=== PATIENT | male | born 1950 | race Caucasian/White ===

== ENCOUNTER 2016-10-23 18:27 | Observation (INO) ==
[2016-10-23] MEDS ORDERED: Ondansetron 4 MG/2 ML VIAL IVP ONE (18:34)
[2016-10-23] MEDS ORDERED: *HR* HYDROmorphone (PF) 1 MG/ML SYRINGE IVP ONE (18:34)
--- NOTE | 2016-10-23 18:57 | Emergency Department Note ---
Disposition Clinical Impression: Calculus of kidney Disposition: Admitted As Inpatient Condition: Good Time of Disposition: 19:00 General Adult HPI - General Stated complaint: kidney stones Time Seen by Provider: 10/23/16 18:28 Source: patient Mode of arrival: ambulatory Limitations: no limitations Nursing Notes Reviewed: Yes Vital Signs Reviewed: Yes - History of Present Illness HPI Narrative: 66-year-old male with history of proximal left 4 mm ureterolithiasis that I diagnosed this morning. Presents today for intractable pain along with dry heaving at home despite taking his Percocet, Naprosyn, and Zofran. He states that he would like admitted for symptoms. He denies any new symptoms including fever, headache, confusion, chest pain or shortness of breath, inability to urinate or pain with urination. He denies any other abdominal pain other than left flank pain radiating to the left lower quadrant. No injuries. - Related Data Home Medications Medication Instructions Recorded Confirmed Albuterol Sulfate [Proair Hfa] 2 puff IH Q4H PRN 12/26/15 12/26/15 Atorvastatin Calcium 40 mg PO HS 12/26/15 12/26/15 Budesonide/Formoterol 160/4.5 2 puff IH BIDR 12/26/15 12/26/15 [Symbicort 160/4.5] Fenofibrate 160 mg PO DAILY 12/26/15 12/26/15 Roflumilast [Daliresp] 500 mcg PO DAILY 12/26/15 12/26/15 Tiotropium [place] [Spiriva] 18 mcg PO DAILY 12/26/15 12/26/15 Previous Rx's Medication Instructions Recorded Benzonatate [Tessalon] 200 mg PO TID PRN #30 capsule 12/28/15 levoFLOXacin [Levaquin] 500 mg PO DAILY #5 tablet 12/28/15 predniSONE [PredniSONE] 60 mg PO DAILY #18 tablet 12/28/15 Naproxen [Naprosyn] 500 mg PO BID PRN #20 tablet 10/23/16 Ondansetron ODT [Zofran ODT] 4 mg SL Q6HR PRN #10 tab.rapdis 10/23/16 OxyCODONE/APAP 5/325 [Percocet 1 each PO Q6HR PRN #6 tablet 10/23/16 5/325 MG] Allergies Allergy/AdvReac Type Severity Reaction Status Date / Time Penicillins Allergy Hives Verified 12/26/15 03:46 Sulfa (Sulfonamide Allergy Hives Verified 12/26/15 03:46 Antibiotics) All systems ED: reviewed and negative except as stated. Past Medical History - Past Medical History Attestation: Yes The following information was validated with the patient. Source: patient Medical history: Reports: COPD, hyperlipidemia, kidney stones Psychiatric history: Reports: no psych history - Social History Smoking Status: Former smoker Smokeless Tobacco Status: No Alcohol use: Reports: none Drug use: Reports: none Physical Exam - Head Head exam: atraumatic, normocephalic, normal inspection - Eye Eye exam: Present: normal appearance, PERRL, EOMI - ENT ENT exam: normal exam, normal oropharynx, mucous membranes moist - Neck Neck exam: Present: normal inspection, full ROM, trachea midline - Chest Chest inspection: Present: normal inspection, symmetric chest wall rise - Respiratory Respiratory exam: Clear to auscultation bilaterally without wheezes rales or rhonchi Cardiovascular Cardiovascular exam: Present: regular rate, normal rhythm, normal heart sounds - Abdominal Exam Abdomen is soft without tenderness, rigidity, or guarding. Positive bowel sounds and no masses noted. - Extremities Exam Extremities exam: Present: normal inspection, full ROM - Back Exam Back exam: Present: normal inspection, full ROM. Positive CVA tenderness on the left. - Neurological Exam Neurological exam: Present: alert, oriented X3, CN II-XII intact - Psychiatric Psychiatric exam: Present: normal affect, normal mood - Skin Skin exam: Present: warm, dry, intact, normal color - General General appearance: other (Uncomfortable) Course - Reevaluation(s) Reevaluation #1: 66-year-old male presents as a bounce back from this morning with uncontrolled pain despite Percocet, Naprosyn, and Zofran. Accepted to urology service by Dr. Tang for surgical management of his stone tomorrow. Patient is agreeable to plan. We are administering Dilaudid and Zofran at this time to control his symptoms. Time: 19:00 Attestation Statement - Attestation Attestation: I personally interviewed and examined this patient and my medical decision- making was reviewed with the ED Resident Physician, Dr. Odonnell. I agree with the documented findings, disposition and treatment plan as described except to the extent set forth below. I personally evaluated the patient earlier in this shift for left renal colic secondary to a 4 mm proximal ureter stone. Patient was discharged in improved condition with great pain control to follow-up with his family doctor and provided prescriptions for home. Upon returning home patient reports that he did take Naprosyn, Zofran, and a dose of Percocet but since that time has had intractable vomiting and pain. Patient's exam shows similar findings with left flank pain radiating around to the left groin area. Vital signs are stable. Will place an IV and administered pain and nausea medication and admit the patient for intractable pain and nausea vomiting. Discussed with urology who accepted patient for admission.
[2016-10-23] MEDS ORDERED: Ondansetron 4 MG/2 ML VIAL IVP PRN (19:51)
[2016-10-23] MEDS ORDERED: *HR* Morphine 2 MG/ML SYRINGE IVP PRN (19:51)
[2016-10-23] MEDS ORDERED: *HR* Promethazine 25 MG/ML VIAL IVP PRN (19:51)
[2016-10-23] MEDS ORDERED: Naloxone 0.4 MG/ML INJ IVP PRN (19:51)
[2016-10-23] MEDS ORDERED: *HR* HYDROmorphone (PF) 1 MG/ML SYRINGE IVP PRN (19:51)
[2016-10-23] MEDS ORDERED: Ketorolac 15 MG/ML VIAL IVP PRN (19:51)
[2016-10-23] MEDS ORDERED: Benzonatate 100 MG CAPSULE PO PRN (19:55)
[2016-10-23] MEDS: Budesonide/Formoterol 160/4.5 MDI IH SCH (20:20)
--- NOTE | 2016-10-23 20:24 | Urology History & Physical ---
Date of Encounter: 10/24/16 Time of Encounter: 20:22 Assessment and Plan (1) Ureteral stone with hydronephrosis Current Visit: Yes Status: Acute I reviewed the CT images and discussed findings with the and patient. pt is not comfortable with medically expulsive therapy bc of recent illness requiring 2 ER visits. we have elevated to proceed with ureteroscopic stone extraction with holmium laser lithotripsy and stent placement. we discussed risk of the procedure including injury to urinary tract and inability to retrieve the stone requiring a 2nd surgery. we discussed need for stent placement after surgery. History of Present Illness Chief complaint: flank pain HPI: Mr. Salinas is a 66 year old male with a hx of urolithiasis. 2 ER visits today for flank pain and intractable N/V. no fever. no surgery for stones in the past. 4 mm proximal stone. Past Med Surg Social Fam HX - Past Medical History Medical history: COPD, hyperlipidemia, hypertension, kidney stones Psychiatric history: no psych history - Social History Smoking Status: Former smoker Smokeless Tobacco Status: No Alcohol use: none Drug use: none - Family History Mother Living Status: Hx Family Endocrine Disorder: Yes (DM) Medications and Allergies Albuterol Sulfate [Proair Hfa] 2 puff IH Q4H PRN 12/26/15 [History] Atorvastatin Calcium 40 mg PO HS 12/26/15 [History] Budesonide/Formoterol 160/4.5 [Symbicort 160/4.5] 2 puff IH BIDR 12/26/15 [ History] Fenofibrate 160 mg PO DAILY 12/26/15 [History] Roflumilast [Daliresp] 500 mcg PO DAILY 12/26/15 [History] Tiotropium [place] [Spiriva] 18 mcg PO DAILY 12/26/15 [History] Naproxen [Naprosyn] 500 mg PO BID PRN #20 tablet 10/23/16 [Rx] Ondansetron ODT [Zofran ODT] 4 mg SL Q6HR PRN #10 tab.rapdis 10/23/16 [Rx] OxyCODONE/APAP 5/325 [Percocet 5/325 MG] 1 each PO Q6HR PRN #6 tablet 10/23/16 [ Rx] Allergies Penicillins Allergy (Verified 12/26/15 03:46) Hives Sulfa (Sulfonamide Antibiotics) Allergy (Verified 12/26/15 03:46) Hives Review of Systems - Constitutional weakness, no chills, no fever(s) - EENT Nose, mouth and throat: no dizziness - Cardiovascular no chest pain - Respiratory dyspnea - Gastrointestinal abdominal pain, nausea, vomiting - Genitourinary flank pain - Musculoskeletal back pain - Integumentary no erythema - Neurological no confusion - Psychiatric no anxiety - Hematologic/Lymphatic no easy bleeding - Allergic/Immunologic no throat swelling Exam Initial Vital Signs Temp Pulse Resp BP Pulse Ox 97.7 F 69 20 135/94 92 10/23/16 18:48 10/23/16 18:48 10/23/16 18:48 10/23/16 18:48 10/23/16 18:48 - General physical appearance Present: well developed, no distress - Eyes Present: PERRL - ENT Present: normal nares - Neck Present: no masses - Respiratory Present: normal respiratory effort - Cardiovascular Cardiovascular exam IM: RRR - Abdomen Abdomen: Present: soft - Integumentary Present: no rash - Neurologic Present: normal coordination. Absent: disoriented, confused (+CVA tenderness.) Urology Results - Labs All other labs normal.
[2016-10-23] MEDS: 0.9 % Sodium Chloride 1,000 ML IVC SCH (20:40)
[2016-10-24] MEDS: 0.9 % Sodium Chloride 1,000 ML IVC SCH (06:33)
[2016-10-24] MEDS ORDERED: Levofloxacin 500 MG/100 ML 500 MG/100 ML BAG IVPB SCH (07:00)
--- NOTE | 2016-10-24 07:31 | Anesthesia Evaluation PreOp ---
Date of Encounter: 10/24/16 Time of Encounter: 07:30 - Past History Planned Operation: Left Ureteral Stone Extraction,Laser Cardiac History: HTN, Hyperlipidemia Pulmonary History: Former smoker, COPD [place] History: Denies Any Significant HX Other Medical History: Denies Any Significant HX Anesthesia History: No Prior Anesthetic Complications Alcohol Use: none Drug use: none Medications and Allergies Albuterol Sulfate [Proair Hfa] 2 puff IH Q4H PRN 12/26/15 [History] Atorvastatin Calcium 40 mg PO HS 12/26/15 [History] Budesonide/Formoterol 160/4.5 [Symbicort 160/4.5] 2 puff IH BIDR 12/26/15 [ History] Fenofibrate 160 mg PO DAILY 12/26/15 [History] Roflumilast [Daliresp] 500 mcg PO DAILY 12/26/15 [History] Tiotropium [place] [Spiriva] 18 mcg PO DAILY 12/26/15 [History] Naproxen [Naprosyn] 500 mg PO BID PRN #20 tablet 10/23/16 [Rx] Ondansetron ODT [Zofran ODT] 4 mg SL Q6HR PRN #10 tab.rapdis 10/23/16 [Rx] OxyCODONE/APAP 5/325 [Percocet 5/325 MG] 1 each PO Q6HR PRN #6 tablet 10/23/16 [ Rx] Allergies Penicillins Allergy (Verified 12/26/15 03:46) Hives Sulfa (Sulfonamide Antibiotics) Allergy (Verified 12/26/15 03:46) Hives - Meds/Allergy Pre-op Review Medications Reviewed: Yes Allergies Reviewed: Yes Beta Blockers on Current Med List: No Anesthesia Results - Labs Laboratory Tests 10/23/16 10/23/16 10:35 10:35 Hgb 14.5 Hct 43.7 Plt Count 257 Sodium 142 Potassium 4.0 BUN 20 Creatinine 1.23 - Imaging EKG: report reviewed (SR) Additional studies: LVEF 70% Anesthesia Exam O2 Sat Height 1.68 m Weight 69.5 kg Weight 70.307 kg O2 Sat by Pulse Oximetry 96 O2 Sat by Pulse Oximetry 93 O2 Sat by Pulse Oximetry 96 O2 Sat by Pulse Oximetry 96 O2 Sat by Pulse Oximetry 93 O2 Sat by Pulse Oximetry 92 Vital Signs Temp Pulse Resp BP Pulse Ox 97.7 F 69 20 135/94 92 10/23/16 18:48 10/23/16 18:48 10/23/16 18:48 10/23/16 18:48 10/23/16 18:48 Height: 5'6 Weight: 153 lbs NPO (# of Hours): MN Pain Scale: 2 - HEENT Pupil (Motor): Pupils equal, EOMI Mallampati: II Oral Opening: Greater than 3 - [place] LOC: Oriented [place] Motor: Normal RUE, Normal LUE, Normal RLE, Normal LLE, Normal Face [place] Sensory: Normal: RUE, LUE, RLE, LLE, Face - Cardiac Rhythm: Regular Murmur: None JVD: No Carotid Bruit: No - Pulmonary Breath Sounds: bilateral Clear Respiratory Effort: Symmetrical Anesthesia Assess/Plan ASA Score: 3 (COPD HTN) Modified [place] Scale for Level of Consciousness: Cooperative, oriented, and tranquil Anesthetic Plan: General Monitoring Plan: Standard Monitors Recovery Plan: PACU (Discussed GA, agrees to proceed)
[2016-10-24] MEDS ORDERED: Albuterol 2.5 MG/3 ML NEBULIZER ONE (07:33)
[2016-10-24] MEDS ORDERED: *HR* Propofol 200 MG/20 ML VIAL IVP ONE (07:38)
[2016-10-24] MEDS ORDERED: *HR* FentaNYL (PF) 100 MCG/2 ML VIAL ONE ×2 (07:38→07:39)
[2016-10-24] MEDS ORDERED: Ondansetron 4 MG/2 ML VIAL ONE (07:39)
[2016-10-24] MEDS ORDERED: Lidocaine -MPF 2% 2 ML VIAL ONE (07:39)
[2016-10-24] MEDS ORDERED: Albuterol 2.5 MG/3 ML NEBULIZER IH ONE (07:39)
[2016-10-24] MEDS ORDERED: *HR* Succinylcholine 200 MG/10 ML VIAL IVP ONE (07:39)
[2016-10-24] MEDS ORDERED: Dexamethasone 4 MG/ML VIAL ONE (07:39)
[2016-10-24] MEDS ORDERED: Lidocaine -MPF 4% 5 ML AMPUL ONE (07:39)
[2016-10-24] MEDS: Budesonide/Formoterol 160/4.5 MDI IH SCH (07:45)
--- NOTE | 2016-10-24 08:55 | Operative Note ---
Date of procedure: 10/24/16 Pre-op diagnosis: left ureteral stone Post-op diagnosis: same Procedure: left ureteroscopic stone extraction with holmium laser left retrograde pyelogram left JJ stent. Anesthesia: GETA Surgeon: Adan Tang Estimated blood loss (cc): 0 Specimen: stone Condition: stable Disposition: PACU Procedure in Detail: PROCEDURE IN DETAIL: Patient was taken back to the operating room, positioned supine on the operating table. Anesthesia was applied without complication. They were moved into dorsal lithotomy. Careful attention was maintained to cushion all pressure points for patient's safety. They were prepped and draped in 17sterile fashion. Time-out was performed with the proper patient and procedure. A 17 [place] rigid cystoscope was inserted into the bladder without difficulty. Systematic examination of bladder revealed no abnormalities. The ureteral orifice was cannulated using a 5-[place]uneian ureteral Catheter and a retrograde pyelogram was performed using Isovue. A filling defect was identified which corresponded to the stone in the left proximal ureter.. At that point, a zip wire was placed through the 5-[place] and confirmed in the renal pelvis with fluoroscopy. An 8-10 dilator was then placed over the zip wire to passively dilate the ureteral orifice. The flexible ureteroscope still did not pass. I placed a 11 x 13 46 length access sheath over the wire and into the left ureter. This did passed with minimal resistance. A flexible ureteroscope was carefully inserted into the access sheath and guided to the ureteral stone. At that point, the stone was encountered and I felt that it required fragmentation for safe extraction. A 200 micron holmium laser fiber on a setting of 8 and 800 was used to fragment the stone into multiple pieces. The fragments were individually basketed out of the ureter with a 1.9 tipless basket. All stone in the ureter was removed. A 6.0 x 26 ureteral stent was placed over the zip wire under fluoroscopy without complication. The bladder was drained.. They were collected and sent for stone analysis. The string was left attached to the stent and secured to the patient for easy removal in approximately 72 hours
--- NOTE | 2016-10-24 08:56 | Anesthesia Evaluation Post Op ---
Date of Encounter: 10/24/16 Time of Encounter: 09:00 - Vital Signs Vital Signs: Vital Signs/O2 Sat/Glucose, Most Current Temp Pulse Resp BP Pulse Ox 10/24/16 08:55 68 12 119/77 94 10/24/16 08:45 71 12 103/69 98 10/24/16 08:35 98 F 57 10 105/78 98 - Lungs Lungs: Clear Ascult./Percussion - Airway Airway: Non-obstructed - Cardiovascular Regular Rate - Mental Status Mental Status: Alert & Oriented, Answers Appropriately - Pain Pain Scale: 0 - Nausea Vomiting Nausea Vomiting: Not Present - Hydration Hydration: NPO - Discharge PostOp Status: Transfer Patient to floor
--- NOTE | 2016-10-24 08:59 | Discharge Summary ---
Date of Encounter: 10/24/16 Time of Encounter: 08:55 - Discharge Diagnosis (1) Ureteral stone with hydronephrosis Priority: Primary Status: Resolved - Discharge Medications Prescriptions: OxyCODONE/APAP 5/325 [Percocet 5/325 MG] 1 each PO Q6HR PRN #15 tablet PRN Reason: Pain Phenazopyridine HCl [Pyridium] 200 mg PO TIDAC PRN #20 tab PRN Reason: burning with urination Home Medications: Albuterol Sulfate [Proair Hfa] 2 puff IH Q4H PRN 12/26/15 [History] Atorvastatin Calcium 40 mg PO HS 12/26/15 [History] Budesonide/Formoterol 160/4.5 [Symbicort 160/4.5] 2 puff IH BIDR 12/26/15 [ History] Fenofibrate 160 mg PO DAILY 12/26/15 [History] Roflumilast [Daliresp] 500 mcg PO DAILY 12/26/15 [History] Tiotropium [place] [Spiriva] 18 mcg PO DAILY 12/26/15 [History] Naproxen [Naprosyn] 500 mg PO BID PRN #20 tablet 10/23/16 [Rx] OxyCODONE/APAP 5/325 [Percocet 5/325 MG] 1 each PO Q6HR PRN #15 tablet 10/24/16 [Rx] Phenazopyridine HCl [Pyridium] 200 mg PO TIDAC PRN #20 tab 10/24/16 [Rx] Allergies/Adverse Reactions: Allergies Penicillins Allergy (Verified 12/26/15 03:46) Hives Sulfa (Sulfonamide Antibiotics) Allergy (Verified 12/26/15 03:46) Hives Labs on day of discharge: Labs from last 24 hours 10/24/16 05:49 POC Glucose 96 H - Impressions ITS Impressions Retrograde Pyelogram 10/24/16 00:00 IMPRESSION: Intraprocedural fluoroscopic spot images as above. See separate procedure report for more information. D/ / Max Bahena MD / Max Bahena MD Interpreting Provider: Max Bahena MD Date of admission: 10/23/16 18:50 Primary care physician: Luann Weinberg Discharging clinician: Adan Tang Anticipated date of discharge: 10/24/16 - Patient Status Disposition: Home, Self-Care Functional capacity at discharge: independent ambulation Overall status at discharge: patient is progressing back to baseline - Discharge Instructions Follow Up With: Ammon Maradiaga DO [Primary Care Provider] - Adan Tang MD [Partnered Physician] - (see additional instructions ) Forms: ED Satisfaction Letter, Work/School Release Additional Instructions: expect stent discomfort including urgency, frequency, burning, and blood in the urine. this is normal. call if excessive. call if fever over 101 Ok to remove stent at home on AM by pulling on the string until entire stent is removed. if uncomfortable removing stent at home, OK to come to urology office for removal. After stent is removed, it is normal to have discomfort for 12-24 hours. If stent is removed at home, please follow in 2-4 weeks with [facility] or [facility]. - Diet and Activity Activity: increase activity as tolerated Diet: advance to your usual diet - Hospital Course Hospital course: Mr. Salinas is a 66 year old male - Time Spent with Patient Total time spent providing and/or coordinating discharge services: Less than 30 minutes Exam Initial Vital Signs Temp Pulse Resp BP Pulse Ox 97.7 F 69 20 135/94 92 10/23/16 18:48 10/23/16 18:48 10/23/16 18:48 10/23/16 18:48 10/23/16 18:48 - General physical appearance Present: well developed, no distress
[2016-10-24] MEDS ORDERED: (Roflumilast [Daliresp] 500 MCG) PO SCH (09:00)
[2016-10-24] MEDS ORDERED: Fenofibrate 54 MG TABLET PO SCH (09:00)
[2016-10-24] MEDS ORDERED: predniSONE 20 MG TABLET PO SCH (09:00)
[2016-10-24] MEDS ORDERED: *HR* Morphine 2 MG/ML SYRINGE IVP PRN (09:29)
[2016-10-24] MEDS ORDERED: 0.9 % Sodium Chloride 1,000 ML IVC SCH (09:29)
[2016-10-24] MEDS ORDERED: Ondansetron 4 MG/2 ML VIAL IVP PRN (09:29)
[2016-10-24] MEDS ORDERED: *HR* OxyCODONE/APAP 5/325 TABLET PO PRN (09:29)
[2016-10-24] MEDS ORDERED: *HR* Promethazine 25 MG/ML VIAL IVP PRN (09:29)
[2016-10-24] MEDS ORDERED: *HR* HYDROmorphone (PF) 1 MG/ML SYRINGE IVP PRN (09:29)
[2016-10-24] MEDS ORDERED: Naloxone 0.4 MG/ML INJ IVP PRN (09:29)
[2016-10-24] MEDS ORDERED: Ketorolac 15 MG/ML VIAL IVP PRN (09:29)
[2016-10-24] MEDS ORDERED: Tiotropium 18 MCG inhalation IH SCH ×2 (10:00)
[2016-10-24] MEDS ORDERED: Budesonide/Formoterol 160/4.5 MDI IH SCH (10:00)
[2016-10-24 12:34] VITALS: BP 143/80
--- NOTE | 2016-10-24 12:57 | Electrocardiograph Report ---
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
[2016-10-25] MEDS ORDERED: (Roflumilast [Daliresp] 500 MCG) PO SCH (09:00)
[2016-10-25] MEDS ORDERED: Fenofibrate 54 MG TABLET PO SCH (09:00)
== END 2016-10-24 13:55 | disposition home or self-care (01) ==
LOC: EMEROO 18:27 → 3ANU 18:27
PROVIDERS: ADMIT Urology; ATTEND Urology

== ENCOUNTER 2018-04-09 21:11 | Inpatient (IN) ==
[2018-04-09 21:34] LABS: Bilirubin,Urine Negative (Negative); Blood,Urine Negative (Negative); Clarity,Urine Cloudy (Clear); Color,Urine Yellow (Yellow); Glucose,Urine (UA) Normal (Normal); Ketones,Urine Negative (Negative); Leukocyte Esterase,Urine Negative (Negative); Nitrite,Urine Negative (Negative); PH,Urine 7.5 pH Units (5.0-8.0); Protein,Urine Negative (Neg-Trace); Specific Gravity,Urine 1.013 (1.010-1.025); Urobilinogen,Urine Normal (Normal)
[2018-04-09 21:36] LABS: Bacteria,Urine None Seen per hpf (None-Few); Hyaline Casts,Urine None Seen per lpf (None-Few); RBC,Urine 0-3 per hpf (0-3); Squamous Epithelial Cell,Urine Few per lpf (None-Few); WBC,Urine 0-3 per hpf (0-3)
[2018-04-09] MEDS ORDERED: 0.9 % Sodium Chloride 1,000 ML IVC ONE (21:52)
[2018-04-09] MEDS ORDERED: Ketorolac 30 MG/ML VIAL IVP ONE (21:52)
[2018-04-09 21:56] LABS: Basophils # 0.1 K/mcL (0.0-0.2); Basophils % 0.4 %; Eosinophils # 0.3 K/mcL (0.0-0.6); Eosinophils % 2.3 %; Hematocrit 41.4 % (37.5-50.1); Hemoglobin 14.3 g/dL (12.9-16.9); Immature Granulocytes % 0.5 % (0-4); Lymphocytes % 13.2 %; Mean Corpuscular HGB Conc 34.5 g/dL (31.6-35.5); Mean Corpuscular Hemoglobin 31.2 pg (28.0-33.3); Mean Corpuscular Volume 90.2 fL (83.0-100.0); Mean Platelet Volume 10.6 fL (9.4-12.4); Monocytes % 13.4 %; Neutrophils # 10.5 K/mcL (1.6-8.9); Platelet Count 324 K/mcL (140-400); Red Blood Count 4.59 M/mcL (4.19-5.50); Red Cell Distribution Width 13.3 % (11.5-14.5); Segmented Neutrophils % 70.2 %
--- NOTE | 2018-04-09 22:07 | Emergency Department Note ---
Disposition Clinical Impression: Pelvic pain, Anal pain, Acute urinary retention Prostatitis Qualifiers: Prostatitis type: acute Qualified Code(s): N41.0 - Acute prostatitis Disposition: Still a Patient Instructions: Prostatitis (ED), Urinary Retention in Men (ED), Willingham Catheter Placement and Care (ED), Abdominal Pain (ED) Reasons to Return/Additional Instructions: Please follow-up with urology on Tuesday. Return to the ED with worsening symptoms or other complaints. Prescriptions: levoFLOXacin [Levaquin] 500 mg PO DAILY #20 tablet Referrals: Ammon Maradiaga DO [Primary Care Provider] - 04/10/18 [facility] [Provider Group] - 04/10/18 Forms: ED Satisfaction Letter, Work/School Release General Adult HPI - General Chief complaint: ED Abdominal Pain Stated complaint: kidney stone Time Seen by Provider: 04/09/18 21:28 Source: patient, family Limitations: no limitations Nursing Notes Reviewed: Yes Vital Signs Reviewed: Yes - History of Present Illness HPI Narrative: 67 year old male presents for bilateral pelvic pain and anal pain for 1 week. Patient describes pain is constant. Pelvic pain is pressure-like and cramping. Anal pain is pressure-like and sharp. Patient has a history of kidney stones and states that the pain feels the same as a kidney stone but is in a different location. Pain is exacerbated by urinating or making bowel movements. Patient is now not eating because he wants to prevent bowel movements. Has been taking o xycodone which temporarily relieves pain. States pain right now is 6/10. Admits subjective fever, states temperature was 99. Denies nausea, abdominal pain, swelling, headache, chest pain, shortness of breath, diarrhea, blood in stools, blood in urine, penile discharge, penile pain. Patient states he was treated for a prostate infection 1 month ago, but this feels different. Pain Scale: 10 - Related Data Home Medications Medication Instructions Recorded Confirmed Albuterol Sulfate [Proair Hfa] 2 puff IH Q4H PRN 12/26/15 07/25/17 Atorvastatin Calcium 40 mg PO HS 12/26/15 07/25/17 Budesonide/Formoterol 160/4.5 2 puff IH BIDR 12/26/15 07/25/17 [Symbicort 160/4.5] Fenofibrate 160 mg PO DAILY 12/26/15 07/25/17 Roflumilast [Daliresp] 500 mcg PO DAILY 12/26/15 07/25/17 hydroCHLOROthiazide 25 mg PO DAILY 10/24/16 07/25/17 [Hydrochlorothiazide] Acetylcysteine [Nac] 1,200 mg PO DAILY 07/25/17 07/25/17 Vit A/C/E AC/Znox/Cupric Oxide 1 tab PO DAILY 07/25/17 07/25/17 [Eye Vitamin-Minerals Tablet] amLODIPine [Norvasc] 5 mg PO DAILY 07/25/17 07/25/17 Previous Rx's Medication Instructions Recorded Ondansetron ODT [Zofran ODT] 4 mg SL Q8HR PRN #12 tab.rapdis 11/12/17 Oxycodone HCl/Acetaminophen 1 each PO Q6HR PRN 2 Days #8 tablet 11/12/17 [Percocet 5-325 mg Tablet] levoFLOXacin [Levaquin] 500 mg PO DAILY #20 tablet 04/09/18 Allergies Allergy/AdvReac Type Severity Reaction Status Date / Time Penicillins Allergy Hives Verified 12/30/17 20:36 Sulfa (Sulfonamide Allergy Hives Verified 12/30/17 20:36 Antibiotics) All systems ED: reviewed and negative except as stated. Constitutional: Reports: fever. Denies: chills Eyes: Denies: eye pain, eye discharge ENT ED: Denies: ear pain, throat pain Cardiovascular: Denies: chest pain, palpitations Respiratory: Denies: cough, dyspnea Gastrointestinal: Denies: abdominal pain, nausea Genitourinary: Denies: urgency, dysuria Musculoskeletal: Denies: back pain, neck pain Integumentary: Denies: rash, abrasion Neurological: Denies: headache, weakness Past Medical History - Past Medical History Attestation: Yes The following information was validated with the patient. Medical history: Reports: COPD, hyperlipidemia, hypertension, kidney stones Psychiatric history: Reports: no psych history - Social History Smoking Status: Former smoker Smokeless Tobacco Status: No Alcohol use: Reports: rarely Drug use: Reports: none Physical Exam - General Limitations: no limitations General appearance: alert - Head Head exam: atraumatic, normocephalic - Eye Eye exam: Present: PERRL, EOMI - ENT ENT exam: normal oropharynx, mucous membranes moist - Neck Neck exam: Present: normal inspection - Chest Chest inspection: Present: normal inspection, symmetric chest wall rise - Respiratory Respiratory exam: Present: normal lung sounds bilaterally. Absent: respiratory distress - Cardiovascular Cardiovascular exam: Present: regular rate, normal rhythm - Abdominal Exam Abdominal exam: Present: soft, tenderness (pelvic ), normal bowel sounds. Absent: distention, guarding, rebound, rigidity - Extremities Exam Extremities exam: Present: normal inspection. Absent: tenderness, pedal edema, joint swelling - Back Exam Back exam: Absent: CVA tenderness (R), CVA tenderness (L) - Neurological Exam Neurological exam: Present: alert, oriented X3 - Skin Skin exam: Present: warm, dry, intact, normal color Course Course Narrative: 67 year old male presents for pelvic and anal pain for 1 week. Exacerbated by urinating or bowel movements. To the point of not eating because he doesn't want to make a bowel movement. History of kidney stones and states pain feels the same. Patient is alert and oriented and hemodynamically stable. There is pelvic tenderness to palpation. There is no CVA tenderness. Will check labwork and CT abd/pelvis. Will provide IVF and toradol. Will perform rectal exam. - Reevaluation(s) Reevaluation #1: Will sign out to attending. Time: 22:13 Vital Signs Temperature 98.6 F 04/09/18 21:14 Pulse Rate 88 04/09/18 21:14 Respiratory Rate 12 04/09/18 21:14 Blood Pressure 126/83 04/09/18 21:14 O2 Sat by Pulse Oximetry 98 04/09/18 21:14 Temperature 98.6 F 04/09/18 21:45 Pulse Rate 78 04/09/18 22:37 Respiratory Rate 15 04/09/18 22:37 Blood Pressure 116/72 04/09/18 22:37 O2 Sat by Pulse Oximetry 96 04/09/18 22:37 Oxygen Delivery Oxygen Delivery Room Air Medical Decision Making - Medical Records Medical records reviewed: Yes I reviewed the patient's medical records. - Lab Data Lab results reviewed: Yes I reviewed the patient's lab results. Result diagrams: 04/09/18 21:42 04/09/18 21:42 Lab Results 04/09/18 04/09/18 04/09/18 Range/Units 21:17 21:42 21:42 WBC 15.0 H (4.3-11.1) K/mcL RBC 4.59 (4.19-5.50) M/mcL Hgb 14.3 (12.9-16.9) g/dL Hct 41.4 (37.5-50.1) % MCV 90.2 (83.0-100.0) fL MCH 31.2 (28.0-33.3) pg MCHC 34.5 (31.6-35.5) g/dL RDW 13.3 (11.5-14.5) % Plt Count 324 (140-400) K/mcL MPV 10.6 (9.4-12.4) fL Immature Gran % 0.5 (0-4) % Seg Neutrophils % 70.2 % Lymphocytes % 13.2 % Monocytes % 13.4 % Eosinophils % 2.3 % Basophils % 0.4 % Neutrophils # 10.5 H (1.6-8.9) K/mcL Lymphocytes # 2.0 (0.6-4.6) K/mcL Monocytes # 2.0 H (0.0-1.3) K/mcL Eosinophils # 0.3 (0.0-0.6) K/mcL Basophils # 0.1 (0.0-0.2) K/mcL Sodium 138 (136-145) mEq/L Potassium 3.5 (3.5-5.1) mEq/L Chloride 102 (98-107) mEq/L Carbon Dioxide 25 (23-29) mEq/L BUN 18 (8-23) mg/dL Creatinine 1.02 (0.70-1.30) mg/dL Est GFR ( Amer) > 60 (> 60) Est GFR (Non-Af Amer) > 60 (> 60) BUN/Creatinine Ratio 18 (6-26) Glucose 93 (70-105) mg/dL Calculated Osmolality 288 (280-300) Calcium 9.8 (8.6-10.3) mg/dL Total Bilirubin 0.6 (0.3-1.0) mg/dL Direct Bilirubin 0.2 (0.0-0.2) mg/dL Indirect Bilirubin 0.4 (0.0-1.2) mg/dL AST 13 (13-39) Units/L ALT 17 (7-52) Units/L Alkaline Phosphatase 64 (34-104) Units/L Serum Total Protein 6.6 (6.4-8.9) g/dL Albumin 3.9 (3.5-5.7) g/dL Globulin 2.7 (2.4-3.5) g/dL Albumin/Globulin Ratio 1.4 (1.1-2.2) Amylase 30 (29-103) Units/L Lipase 32 (11-82) Units/L Urine Color Yellow (Yellow) Urine Clarity Cloudy A (Clear) Urine pH 7.5 (5.0-8.0) pH Units Ur Specific [place] 1.013 (1.010-1.025) Urine Protein Negative (Neg-Trace) mg/dL Urine Glucose (UA) Normal (Normal) mg/dL Urine Ketones Negative (Negative) mg/dL Urine Blood Negative (Negative) Urine Nitrite Negative (Negative) Urine Bilirubin Negative (Negative) Urine Urobilinogen Normal (Normal) mg/dL Ur Leukocyte Esterase Negative (Negative) Urine Microscopic RBC 0-3 (0-3) per hpf Urine Microscopic WBC 0-3 (0-3) per hpf Ur Squamous Epith Cells Few (None-Few) per lpf Urine Bacteria None Seen (None-Few) per hpf Hyaline Casts None Seen (None-Few) per lpf Ur Culture Indicated? NO (NO) - Radiology Data Radiology results reviewed: Yes I reviewed the patient's radiology results. S.B.A.Sendy. - S.B.A.Alise Situation: Demographics Background: Presenting Complaint, Relevant PMH, Meds, & Allergies Assessment: Vital Signs, Course and respsone to treatment, Exam Concerns, Pertin ant Lab Results, Outstanding Labs Recommendation: Barrier(s) to disposition, Recommendation based on pending studies, treatments, or consults S.B.A.RFinesse Report Given to: Dr. Jonny Whitlock Repor Time: 23:00 Attestation Statement - Attestation Attestation: Patient was seen with resident physician. I reviewed the history, physical, assessment and plan, and agree with the findings. I also personally evaluated this patient and had [id number] time with this patient. 67-year-old male presents in the Department chief complaint of lower pelvic pain dysuria and rectal pain. Patient states that symptoms feel similar to when he had kidney stones in the past but the location of the pain is different. Also had a history of prostatitis. He complains now of pain when he attempts to urinate. Also with some rectal pain. He says that the rectal pain is bad enough that he tries not to go to the bathroom. No fevers or chills. No chest pain or shortness of breath. No other areas that are painful in the abdomen. Review of systems as above remainder negative. Physical exam vital signs are stable. ENT is unremarkable. Heart and lungs are regular rhythm and rate lungs are clear. Abdomen is soft there is minimal tenderness in the suprapubic area. Extremities unremarkable. Neurologically intact. Skin no rashes. Psych normal. exam, normal male genitalia. Testicles are nontender. Penis appears normal. Rectal exam there appears to be no perirectal abscesses. Palpation of the patient's prostate reproduces his rectal pain. ED course. We will get lab testing which showed elevated white blood cell count. There is no blood or infection noted in the urine. A bedside ultrasound was done post void which showed considerable residual urine in the bladder. We will place a Willingham catheter to check how much is left post void. Likely we will leave the catheter in and have him follow-up urology. Urinalysis did not show any significant issues, but with his prostate being tender and urinary retention I think is likely that he has worsening of his prostatitis. We will start the patient on Levaquin. Once anticipate discharge to home and follow-up urology on the same. CT scan will be followed up on by the night warehouse manager team. Patient was signed out approximately 11 PM.
[2018-04-09 22:15] LABS: Alanine Aminotransferase 17 Units/L (7-52); Albumin 3.9 g/dL (3.5-5.7); Albumin/Globulin Ratio 1.4 (1.1-2.2); Alkaline Phosphatase 64 Units/L (34-104); Amylase 30 Units/L (29-103); Aspartate Amino Transferase 13 Units/L (13-39); BUN/Creatinine Ratio 18 (6-26); Bilirubin,Direct 0.2 mg/dL (0.0-0.2); Bilirubin,Indirect 0.4 mg/dL (0.0-1.2); Bilirubin,Total 0.6 mg/dL (0.3-1.0); Blood Urea Nitrogen 18 mg/dL (8-23); Calcium 9.8 mg/dL (8.6-10.3); Carbon Dioxide 25 mEq/L (23-29); Chloride 102 mEq/L (98-107); Globulin 2.7 g/dL (2.4-3.5); Glucose 93 mg/dL (70-105); Lipase 32 Units/L (11-82); Osmolality,Calculated 288 (280-300); Potassium 3.5 mEq/L (3.5-5.1); Sodium 138 mEq/L (136-145); Total Protein 6.6 g/dL (6.4-8.9); eGFR For Non-African Americans > 60 (> 60)
[2018-04-09] MEDS ORDERED: levoFLOXacin 500 MG TABLET PO ONE (22:37)
[2018-04-09] MEDS ORDERED: Ondansetron 4 MG/2 ML VIAL IVP ONE (23:07)
[2018-04-09] MEDS ORDERED: *HR* FentaNYL (PF) 100 MCG/2 ML VIAL IVP ONE (23:07)
[2018-04-09] MEDS ORDERED: MetroNIDAZOLE 500 MG/100 ML 500 MG/100 ML BAG IVPB ONE (23:58)
--- NOTE | 2018-04-10 00:06 | Emergency Department Note ---
Disposition Clinical Impression: Acute urinary retention, Pericolonic abscess due to diverticulitis Prostatitis Qualifiers: Prostatitis type: acute Qualified Code(s): N41.0 - Acute prostatitis Disposition: Admitted As Inpatient Condition: Fair Prescriptions: levoFLOXacin [Levaquin] 500 mg PO DAILY #20 tablet Forms: ED Satisfaction Letter, Work/School Release Time of Disposition: 00:05 Abdominal Pain HPI - General Chief Complaint: ED Abdominal Pain Stated Complaint: kidney stone Time Seen by Provider: 04/09/18 21:28 Source: patient, family - History of Present Illness Pain Scale: 10 - Related Data Home Medications Medication Instructions Recorded Confirmed Albuterol Sulfate [Proair Hfa] 2 puff IH Q4H PRN 12/26/15 07/25/17 Atorvastatin Calcium 40 mg PO HS 12/26/15 07/25/17 Budesonide/Formoterol 160/4.5 2 puff IH BIDR 12/26/15 07/25/17 [Symbicort 160/4.5] Fenofibrate 160 mg PO DAILY 12/26/15 07/25/17 Roflumilast [Daliresp] 500 mcg PO DAILY 12/26/15 07/25/17 hydroCHLOROthiazide 25 mg PO DAILY 10/24/16 07/25/17 [Hydrochlorothiazide] Acetylcysteine [Nac] 1,200 mg PO DAILY 07/25/17 07/25/17 Vit A/C/E AC/Znox/Cupric Oxide 1 tab PO DAILY 07/25/17 07/25/17 [Eye Vitamin-Minerals Tablet] amLODIPine [Norvasc] 5 mg PO DAILY 07/25/17 07/25/17 Previous Rx's Medication Instructions Recorded Ondansetron ODT [Zofran ODT] 4 mg SL Q8HR PRN #12 tab.rapdis 11/12/17 Oxycodone HCl/Acetaminophen 1 each PO Q6HR PRN 2 Days #8 tablet 11/12/17 [Percocet 5-325 mg Tablet] levoFLOXacin [Levaquin] 500 mg PO DAILY #20 tablet 04/09/18 Allergies Allergy/AdvReac Type Severity Reaction Status Date / Time Penicillins Allergy Hives Verified 12/30/17 20:36 Sulfa (Sulfonamide Allergy Hives Verified 12/30/17 20:36 Antibiotics) Constitutional: Reports: fever. Denies: chills Eyes: Denies: eye pain, eye discharge ENT ED: Denies: ear pain, throat pain Cardiovascular: Denies: chest pain, palpitations Respiratory: Denies: cough, dyspnea Gastrointestinal: Denies: abdominal pain, nausea Genitourinary: Denies: urgency, dysuria Musculoskeletal: Denies: back pain, neck pain Integumentary: Denies: rash, abrasion Neurological: Denies: headache, weakness Abdominal Pain PMH - Past Medical History Medical history: Reports: COPD, hyperlipidemia, hypertension, kidney stones Male Surgical History: Reports: other Psychiatric history: Reports: no psych history - Social History Smoking status: Former smoker Alcohol use: Reports: rarely Drug use: Reports: none Physical Exam - General Limitations: no limitations General appearance: alert Course - Reevaluation(s) Reevaluation #1: Patient was signed out from the daytime team pending CT abdomen and pelvis to evaluate for nephrolithiasis. CT scan showed diverticulitis with pericolonic abscess. His white count 15,000. Abdominal exam reveals moderate tenderness but no guarding. Patient otherwise looks well. Will admit to the hospitalist service for IV antibiotics and interventional radiology consult for drain placement in the morning. Vital Signs Temperature 98.6 F 04/09/18 21:14 Pulse Rate 88 04/09/18 21:14 Respiratory Rate 12 04/09/18 21:14 Blood Pressure 126/83 04/09/18 21:14 O2 Sat by Pulse Oximetry 98 04/09/18 21:14 Temperature 98.6 F 04/09/18 21:45 Pulse Rate 73 04/09/18 23:31 Respiratory Rate 15 04/09/18 22:37 Blood Pressure 119/70 04/09/18 23:31 O2 Sat by Pulse Oximetry 96 04/09/18 23:31 Oxygen Delivery Oxygen Delivery Room Air Abdominal Pain - Lab Data Result diagrams: 04/09/18 21:42 04/09/18 21:42 Lab Results 04/09/18 04/09/18 04/09/18 Range/Units 21:17 21:42 21:42 WBC 15.0 H (4.3-11.1) K/mcL RBC 4.59 (4.19-5.50) M/mcL Hgb 14.3 (12.9-16.9) g/dL Hct 41.4 (37.5-50.1) % MCV 90.2 (83.0-100.0) fL MCH 31.2 (28.0-33.3) pg MCHC 34.5 (31.6-35.5) g/dL RDW 13.3 (11.5-14.5) % Plt Count 324 (140-400) K/mcL MPV 10.6 (9.4-12.4) fL Immature Gran % 0.5 (0-4) % Seg Neutrophils % 70.2 % Lymphocytes % 13.2 % Monocytes % 13.4 % Eosinophils % 2.3 % Basophils % 0.4 % Neutrophils # 10.5 H (1.6-8.9) K/mcL Lymphocytes # 2.0 (0.6-4.6) K/mcL Monocytes # 2.0 H (0.0-1.3) K/mcL Eosinophils # 0.3 (0.0-0.6) K/mcL Basophils # 0.1 (0.0-0.2) K/mcL Sodium 138 (136-145) mEq/L Potassium 3.5 (3.5-5.1) mEq/L Chloride 102 (98-107) mEq/L Carbon Dioxide 25 (23-29) mEq/L BUN 18 (8-23) mg/dL Creatinine 1.02 (0.70-1.30) mg/dL Est GFR ( Amer) > 60 (> 60) Est GFR (Non-Af Amer) > 60 (> 60) BUN/Creatinine Ratio 18 (6-26) Glucose 93 (70-105) mg/dL Calculated Osmolality 288 (280-300) Calcium 9.8 (8.6-10.3) mg/dL Total Bilirubin 0.6 (0.3-1.0) mg/dL Direct Bilirubin 0.2 (0.0-0.2) mg/dL Indirect Bilirubin 0.4 (0.0-1.2) mg/dL AST 13 (13-39) Units/L ALT 17 (7-52) Units/L Alkaline Phosphatase 64 (34-104) Units/L Serum Total Protein 6.6 (6.4-8.9) g/dL Albumin 3.9 (3.5-5.7) g/dL Globulin 2.7 (2.4-3.5) g/dL Albumin/Globulin Ratio 1.4 (1.1-2.2) Amylase 30 (29-103) Units/L Lipase 32 (11-82) Units/L Urine Color Yellow (Yellow) Urine Clarity Cloudy A (Clear) Urine pH 7.5 (5.0-8.0) pH Units Ur Specific [place] 1.013 (1.010-1.025) Urine Protein Negative (Neg-Trace) mg/dL Urine Glucose (UA) Normal (Normal) mg/dL Urine Ketones Negative (Negative) mg/dL Urine Blood Negative (Negative) Urine Nitrite Negative (Negative) Urine Bilirubin Negative (Negative) Urine Urobilinogen Normal (Normal) mg/dL Ur Leukocyte Esterase Negative (Negative) Urine Microscopic RBC 0-3 (0-3) per hpf Urine Microscopic WBC 0-3 (0-3) per hpf Ur Squamous Epith Cells Few (None-Few) per lpf Urine Bacteria None Seen (None-Few) per hpf Hyaline Casts None Seen (None-Few) per lpf Ur Culture Indicated? NO (NO)
--- NOTE | 2018-04-10 00:46 | Emergency Department Note ---
Disposition Clinical Impression: Acute urinary retention, Pericolonic abscess due to diverticulitis Prostatitis Qualifiers: Prostatitis type: acute Qualified Code(s): N41.0 - Acute prostatitis Disposition: Admitted As Inpatient Condition: Fair General Adult HPI - General Chief complaint: ED Abdominal Pain Stated complaint: kidney stone Time Seen by Provider: 04/09/18 21:28 Source: patient, family Limitations: no limitations Nursing Notes Reviewed: Yes Vital Signs Reviewed: Yes - History of Present Illness Pain Scale: 10 - Related Data Home Medications Medication Instructions Recorded Confirmed Albuterol Sulfate [Proair Hfa] 2 puff IH Q4H PRN 12/26/15 07/25/17 Atorvastatin Calcium 40 mg PO HS 12/26/15 07/25/17 Budesonide/Formoterol 160/4.5 2 puff IH BIDR 12/26/15 07/25/17 [Symbicort 160/4.5] Fenofibrate 160 mg PO DAILY 12/26/15 07/25/17 Roflumilast [Daliresp] 500 mcg PO DAILY 12/26/15 07/25/17 hydroCHLOROthiazide 25 mg PO DAILY 10/24/16 07/25/17 [Hydrochlorothiazide] Acetylcysteine [Nac] 1,200 mg PO DAILY 07/25/17 07/25/17 Vit A/C/E AC/Znox/Cupric Oxide 1 tab PO DAILY 07/25/17 07/25/17 [Eye Vitamin-Minerals Tablet] amLODIPine [Norvasc] 5 mg PO DAILY 07/25/17 07/25/17 Previous Rx's Medication Instructions Recorded Ondansetron ODT [Zofran ODT] 4 mg SL Q8HR PRN #12 tab.rapdis 11/12/17 Oxycodone HCl/Acetaminophen 1 each PO Q6HR PRN 2 Days #8 tablet 11/12/17 [Percocet 5-325 mg Tablet] levoFLOXacin [Levaquin] 500 mg PO DAILY #20 tablet 04/09/18 Allergies Allergy/AdvReac Type Severity Reaction Status Date / Time Penicillins Allergy Hives Verified 12/30/17 20:36 Sulfa (Sulfonamide Allergy Hives Verified 12/30/17 20:36 Antibiotics) Constitutional: Reports: fever. Denies: chills Eyes: Denies: eye pain, eye discharge ENT ED: Denies: ear pain, throat pain Cardiovascular: Denies: chest pain, palpitations Respiratory: Denies: cough, dyspnea Gastrointestinal: Denies: abdominal pain, nausea Genitourinary: Denies: urgency, dysuria Musculoskeletal: Denies: back pain, neck pain Integumentary: Denies: rash, abrasion Neurological: Denies: headache, weakness Past Medical History - Past Medical History Medical history: Reports: COPD, hyperlipidemia, hypertension, kidney stones Psychiatric history: Reports: no psych history - Social History Smoking Status: Former smoker Smokeless Tobacco Status: No Alcohol use: Reports: rarely Drug use: Reports: none Physical Exam - General Limitations: no limitations General appearance: alert Course Vital Signs Temperature 98.6 F 04/09/18 21:14 Pulse Rate 88 04/09/18 21:14 Respiratory Rate 12 04/09/18 21:14 Blood Pressure 126/83 04/09/18 21:14 O2 Sat by Pulse Oximetry 98 04/09/18 21:14 Temperature 98.6 F 04/09/18 21:45 Pulse Rate 79 04/10/18 00:37 Respiratory Rate 18 04/10/18 00:37 Blood Pressure 103/57 04/10/18 00:37 O2 Sat by Pulse Oximetry 97 04/10/18 00:37 Oxygen Delivery Oxygen Delivery Room Air Medical Decision Making - Medical Records Medical records reviewed: Yes I reviewed the patient's medical records. - Lab Data Lab results reviewed: Yes I reviewed the patient's lab results. Result diagrams: 04/09/18 21:42 04/09/18 21:42 Lab Results 04/09/18 04/09/18 04/09/18 Range/Units 21:17 21:42 21:42 WBC 15.0 H (4.3-11.1) K/mcL RBC 4.59 (4.19-5.50) M/mcL Hgb 14.3 (12.9-16.9) g/dL Hct 41.4 (37.5-50.1) % MCV 90.2 (83.0-100.0) fL MCH 31.2 (28.0-33.3) pg MCHC 34.5 (31.6-35.5) g/dL RDW 13.3 (11.5-14.5) % Plt Count 324 (140-400) K/mcL MPV 10.6 (9.4-12.4) fL Immature Gran % 0.5 (0-4) % Seg Neutrophils % 70.2 % Lymphocytes % 13.2 % Monocytes % 13.4 % Eosinophils % 2.3 % Basophils % 0.4 % Neutrophils # 10.5 H (1.6-8.9) K/mcL Lymphocytes # 2.0 (0.6-4.6) K/mcL Monocytes # 2.0 H (0.0-1.3) K/mcL Eosinophils # 0.3 (0.0-0.6) K/mcL Basophils # 0.1 (0.0-0.2) K/mcL Sodium 138 (136-145) mEq/L Potassium 3.5 (3.5-5.1) mEq/L Chloride 102 (98-107) mEq/L Carbon Dioxide 25 (23-29) mEq/L BUN 18 (8-23) mg/dL Creatinine 1.02 (0.70-1.30) mg/dL Est GFR ( Amer) > 60 (> 60) Est GFR (Non-Af Amer) > 60 (> 60) BUN/Creatinine Ratio 18 (6-26) Glucose 93 (70-105) mg/dL Calculated Osmolality 288 (280-300) Calcium 9.8 (8.6-10.3) mg/dL Total Bilirubin 0.6 (0.3-1.0) mg/dL Direct Bilirubin 0.2 (0.0-0.2) mg/dL Indirect Bilirubin 0.4 (0.0-1.2) mg/dL AST 13 (13-39) Units/L ALT 17 (7-52) Units/L Alkaline Phosphatase 64 (34-104) Units/L Serum Total Protein 6.6 (6.4-8.9) g/dL Albumin 3.9 (3.5-5.7) g/dL Globulin 2.7 (2.4-3.5) g/dL Albumin/Globulin Ratio 1.4 (1.1-2.2) Amylase 30 (29-103) Units/L Lipase 32 (11-82) Units/L Urine Color Yellow (Yellow) Urine Clarity Cloudy A (Clear) Urine pH 7.5 (5.0-8.0) pH Units Ur Specific [place] 1.013 (1.010-1.025) Urine Protein Negative (Neg-Trace) mg/dL Urine Glucose (UA) Normal (Normal) mg/dL Urine Ketones Negative (Negative) mg/dL Urine Blood Negative (Negative) Urine Nitrite Negative (Negative) Urine Bilirubin Negative (Negative) Urine Urobilinogen Normal (Normal) mg/dL Ur Leukocyte Esterase Negative (Negative) Urine Microscopic RBC 0-3 (0-3) per hpf Urine Microscopic WBC 0-3 (0-3) per hpf Ur Squamous Epith Cells Few (None-Few) per lpf Urine Bacteria None Seen (None-Few) per hpf Hyaline Casts None Seen (None-Few) per lpf Ur Culture Indicated? NO (NO) - Radiology Data Radiology results reviewed: Yes I reviewed the patient's radiology results. Abdomen/Pelvis CT 04/09/18 21:29 IMPRESSION: 1. Acute sigmoid diverticulitis with an adjacent 6.9 x 3.6 cm pericolonic abscess. 2. Gallbladder sludge versus stones. 3. Prostatic hypertrophy. 4. Nonobstructing left renal calculus. D/ / Jaymie Ospina MD / Jaymie Ospina MD Interpreting Provider: Jaymie Ospina MD Critical Care Time Critical Care Time: Yes Total Critical Care Time: 35 Attestation: Critical care performed: Time is exclusive of separately billable procedures. Time includes: direct patient care, patient reassessment, coordination of patient care, interpretation of data (laboratory data, radiology data, and respiratory data), review of patient's medical records, medical consultation and documentation of patient care. Procedures included in critical care time: Procedures excluded from critical care time: Attestation Statement - Attestation Attestation: I, Que Fuller MD, personally evaluated this patient and discussed their management with the resident physician. I reviewed the resident's note and agree with the documented findings, medical decision making, and plan of care. This patient was signed out at shift change from Dr. Vega and Dr. Mott. Please refer to their notes for complete details of the history and physical examination. Patient presented with a one-week history of lower abdominal pain and perineal pain. Some pelvic pain with urination but no urethral dysuria. No gross hematuria. No fever. No nausea or vomiting or diarrhea. No melena, hematemesis, or hematochezia. At shift change patient is awaiting a CT of the abdomen and pelvis. On examination patient is a well-developed well-nourished elderly male in no acute distress. He is alert and oriented 3. There is no cyanosis or diaphoresis. Breath sounds are clear and equal bilaterally. Heart regular rate and rhythm. Abdomen is soft with increased bowel sounds. There is moderate left lower abdominal tenderness. Labs reviewed. CTA returned showing acute sigmoid diverticulitis with a pericolonic abscess. The hospitalist, Dr. Rogers, was consulted and accepted admission of the patient.
[2018-04-10] MEDS ORDERED: Ketorolac 15 MG/ML VIAL IVP PRN (01:20)
[2018-04-10] MEDS ORDERED: Naloxone 0.4 MG/ML INJ IVP PRN (01:20)
[2018-04-10] MEDS ORDERED: Ondansetron 4 MG/2 ML VIAL IVP PRN (01:29)
[2018-04-10] MEDS: 0.9 % Sodium Chloride 1,000 ML IVC SCH (03:03)
--- NOTE | 2018-04-10 03:55 | Internal Med History&Physical ---
Date of Encounter: 04/10/18 Time of Encounter: 03:53 Internal Medicine - H&P: HPI Chief complaint: Abdominal pain History of present illness: Mr. Salinas is a 67 year old male with past medical history of nephrolithiasis, prostatitis, and COPD who presents to the ED due to abdominal pain. Patient states he began having lower abdominal pain that began on Tuesday. He describes the pain as pressure-like radiating across the lower belly. Patient initially suspected that he may have a recurrence of a kidney stone given the severity of his pain and thought it may also be a recurrence of his prostatitis for which he was treated for back in December, however, he noted that he was not having the same symptoms of burning and pain with urination. Pain was exacerbated with food causing him significant abdominal distention and bloating and feeling constipated, as such patient has not eaten anything since Tuesday. He took Maalox as well as a Fleet enema hoping to clear out GI tract. Pain has persisted since Tuesday and became worse over the weekend noting perennial pain exacerbated with driving on bumpy roads. Denies any fever, chills, nausea, vomiting, diarrhea or blood in his stools. Initial assessment patient was hemodynamically stable. Labs were notable only for an elevated white blood cell count of 15. CT scan revealed acute sigmoid diverticulitis with an over 6 cm pericolonic abscess. Past Med Surg Social Fam HX - Past Medical History Medical history: COPD, hyperlipidemia, hypertension, kidney stones Psychiatric history: no psych history - Past Surgical History Additional surgical history: sinus sx, kidney stone sx - Social History Smoking Status: Former smoker Smokeless Tobacco Status: No Alcohol use: rarely Drug use: none - Family History Mother Living Status: Hx Family Endocrine Disorder: Yes (DM) Internal Medicine - H&P: Meds Albuterol Sulfate [Proair Hfa] 2 puff IH Q4H PRN 12/26/15 [History] Budesonide/Formoterol 160/4.5 [Symbicort 160/4.5] 2 puff IH BIDR 12/26/15 [History] Roflumilast [Daliresp] 500 mcg PO DAILY 12/26/15 [History] hydroCHLOROthiazide [Hydrochlorothiazide] 25 mg PO DAILY 10/24/16 [History] Vit A/C/E AC/Znox/Cupric Oxide [Eye Vitamin-Minerals Tablet] 1 tab PO DAILY 07/25/17 [History] levoFLOXacin [Levaquin] 500 mg PO DAILY #20 tablet 04/09/18 [Rx] Acetylcysteine [D-Odydiw-g-Cysteine] 1,200 mg PO DAILY 04/10/18 [History] Atorvastatin [Lipitor] 40 mg PO HS 04/10/18 [History] Fenofibrate Nanocrystallized [Triglide] 160 mg PO DAILY 04/10/18 [History] Tiotropium [Spiriva] 1 puff PO DAILY PRN 04/10/18 [History] Vit C/E/Zn/Coppr/Lutein/Zeaxan [Preservision Areds 2 Softgel] 1 cap PO DAILY 04/10/18 [History] Allergy/AdvReac Type Severity Reaction Status Date / Time Penicillins Allergy Hives Verified 04/10/18 14:27 Sulfa (Sulfonamide Allergy Hives Verified 04/10/18 14:27 Antibiotics) All Systems PM: A 10-system review of systems was performed and is negative for pertinent findings except as documented above in the HPI. - Constitutional Constitutional: no chills, no fever(s), no night sweats - EENT Eyes: no change in vision, no discharge, no pain, no photophobia Ears: no ear discharge, no ear pain, no tinnitus Nose, mouth and throat: no dysphagia, no nasal discharge, no neck pain, no sore throat - Cardiovascular Cardiovascular ROS IM: no chest pain, no diaphoresis, no dyspnea, no light headedness, no palpitations, no syncope - Respiratory Respiratory: no cough, no dyspnea, no wheezing, no excessive phlegm production - Gastrointestinal Gastrointestinal: no abdominal pain, no diarrhea, no hematemesis, no h ematochezia, no melena, no nausea, no vomiting - Musculoskeletal Musculoskeletal ROS IM: no numbness, no tingling - Integumentary Integumentary IM: no rash, no unusual bruising - Neurological Neurological ROS: no confusion, no convulsions, no focal weakness, no numbness, no tingling, no tremor(s) - Hematologic/Lymphatic Hematologic/Lymphatic: no easy bruising - Constitutional Vitals: Temp Pulse Resp BP Pulse Ox 97.6 F 70 16 108/65 93 04/10/18 01:14 04/10/18 01:14 04/10/18 01:14 04/10/18 01:14 04/10/18 01:14 Exam: General: Alert and oriented 3; lying in bed in no acute distress Skin:Normal color, no rash, no lesions. HEENT:EOM, pupils equal, round and reactive. Cardiovascular:Normal S1 & S2, no rubs, murmurs or gallops. No JVD. Pulse regular. Lungs:Normal breath sounds, no wheezes or crackles. Abdomen:Soft, tenderness to palpation in the lower quadrants. No rebound or guarding noted. Positive bowel sounds. Extremities:No deformity, no edema or tenderness, no joint swelling or clubbing. Neurological:Normal cognition and motor skills. Pulses:Carotid and radial pulses normal +2. Rest of the physical exam is non contributory Internal Med - H&P Results - Labs CBC & Chem 7: 04/11/18 05:30 04/11/18 05:30 Labs: Short CBC 04/09/18 Range/Units 21:42 WBC 15.0 H (4.3-11.1) K/mcL Hgb 14.3 (12.9-16.9) g/dL Hct 41.4 (37.5-50.1) % Plt Count 324 (140-400) K/mcL Neutrophils # 10.5 H (1.6-8.9) K/mcL BMP 04/09/18 21:42 Sodium 138 Potassium 3.5 Chloride 102 Carbon Dioxide 25 BUN 18 Creatinine 1.02 Glucose 93 Calcium 9.8 Liver Function 04/09/18 Range/Units 21:42 Total Bilirubin 0.6 (0.3-1.0) mg/dL Direct Bilirubin 0.2 (0.0-0.2) mg/dL AST 13 (13-39) Units/L ALT 17 (7-52) Units/L Alkaline Phosphatase 64 (34-104) Units/L Albumin 3.9 (3.5-5.7) g/dL Urine 04/09/18 Range/Units 21:17 Urine Color Yellow (Yellow) Urine Clarity Cloudy A (Clear) Urine pH 7.5 (5.0-8.0) pH Units Ur Specific [place] 1.013 (1.010-1.025) Urine Protein Negative (Neg-Trace) mg/dL Urine Glucose (UA) Normal (Normal) mg/dL - Impressions ITS Impressions Abdomen/Pelvis CT 04/09/18 21:29 IMPRESSION: 1. Acute sigmoid diverticulitis with an adjacent 6.9 x 3.6 cm pericolonic abscess. 2. Gallbladder sludge versus stones. 3. Prostatic hypertrophy. 4. Nonobstructing left renal calculus. D/ / Jaymie Ospina MD / Jaymie Ospina MD Interpreting Provider: Jaymie Ospina MD - Assessment and plan (1) Acute diverticulitis Current Visit: Yes Status: Acute Assessment and plan: Acute sigmoid diverticulitis complicated by a 6.5 x 3.9 pericolonic abscess. Patient meets only one sepsis criteria with an elevated white blood cell count of 15. No evidence of sepsis at this time. Patient hemodynamically stable. Not complaining of pain. Patient received 1 bolus of fluids in the ED and was started on IV antibiotics. Patient made nothing by mouth Continue fluids IV antibiotics We will consult GI and interventional radiology for possible drainage of abscess. (2) Leukocytosis Current Visit: Yes Status: Acute Assessment and plan: Leukocytosis secondary to his acute sigmoid diverticulitis. We will continue antibiotics and monitor. Qualifiers: Leukocytosis type: unspecified Qualified Code(s): D72.829 - Elevated white blood cell count, unspecified (3) COPD exacerbation Current Visit: No Status: Acute Assessment and plan: History of COPD not on oxygen. No evidence of an acute exacerbation. We will continue home inhalers. (4) Hyperlipidemia Current Visit: No Status: Chronic Qualifiers: Hyperlipidemia type: unspecified Qualified Code(s): E78.5 - Hyperlipidemia, unspecified (5) Hypertension Current Visit: No Status: Resolved Assessment and plan: Blood pressure stable. Hold antihypertensives for now. Qualifiers: Hypertension type: essential hypertension Qualified Code(s): I10 - Essent ial (primary) hypertension (6) DVT prophylaxis Current Visit: Yes Status: Acute Assessment and plan: Subcutaneous heparin - Time Spent With Patient Total time spent is greater than 50% in coordination of care (as documented) at patient's floor/unit and/or counseling patient:
[2018-04-10 06:01] LABS: Basophils # 0.1 K/mcL (0.0-0.2); Basophils % 0.4 %; Eosinophils # 0.3 K/mcL (0.0-0.6); Eosinophils % 2.6 %; Hematocrit 37.7 % (37.5-50.1); Immature Granulocytes % 0.6 % (0-4); Lymphocytes # 1.7 K/mcL (0.6-4.6); Mean Corpuscular HGB Conc 33.4 g/dL (31.6-35.5); Mean Corpuscular Hemoglobin 30.7 pg (28.0-33.3); Mean Platelet Volume 10.7 fL (9.4-12.4); Monocytes # 1.6 K/mcL (0.0-1.3); Monocytes % 13.2 %; Neutrophils # 8.2 K/mcL (1.6-8.9); Platelet Count 277 K/mcL (140-400); Red Cell Distribution Width 13.3 % (11.5-14.5); Segmented Neutrophils % 69.2 %
[2018-04-10 06:04] LABS: Hemoglobin 12.6 g/dL (12.9-16.9)
[2018-04-10 06:08] LABS: INR 1.2
[2018-04-10 06:24] LABS: Alanine Aminotransferase 13 Units/L (7-52); Albumin 3.2 g/dL (3.5-5.7); Albumin/Globulin Ratio 1.5 (1.1-2.2); Alkaline Phosphatase 52 Units/L (34-104); Aspartate Amino Transferase 10 Units/L (13-39); BUN/Creatinine Ratio 19 (6-26); Bilirubin,Total 0.4 mg/dL (0.3-1.0); Blood Urea Nitrogen 20 mg/dL (8-23); Calcium 8.8 mg/dL (8.6-10.3); Carbon Dioxide 26 mEq/L (23-29); Chloride 107 mEq/L (98-107); Globulin 2.2 g/dL (2.4-3.5); Glucose 78 mg/dL (70-105); Osmolality,Calculated 291 (280-300); Potassium 3.3 mEq/L (3.5-5.1); Sodium 140 mEq/L (136-145); Total Protein 5.4 g/dL (6.4-8.9); eGFR For Non-African Americans > 60 (> 60)
[2018-04-10] MEDS: Budesonide/Formoterol 160/4.5 1 PUFF INH IH SCH ×2 (08:12→20:17)
[2018-04-10] MEDS: Levofloxacin 750 MG/150 ML 750 MG/150 ML BAG IVPB SCH (09:23)
[2018-04-10] MEDS: MetroNIDAZOLE 500 MG/100 ML 500 MG/100 ML BAG IVPB SCH ×2 (09:24→15:37)
[2018-04-10] MEDS: *HR* Heparin 5,000 UNIT/ML VIAL SQ SCH ×2 (09:24→18:03)
[2018-04-10] MEDS: OXYCODONE Oral CONC 10 MG/0.5 ML ORAL.SYG SL PRN ×3 (09:32→18:04)
[2018-04-10] MEDS ORDERED: *HR* Midazolam HCl 2 MG/2 ML VIAL IVP ONE (10:43)
[2018-04-10] MEDS ORDERED: *HR* FentaNYL (PF) 100 MCG/2 ML VIAL IVP ONE ×2 (10:43→12:33)
--- NOTE | 2018-04-10 10:44 | Pre-Sedation Evaluation ---
Pre-sedation evaluation - Pre-sedation checklist Date of procedure: 04/10/18 Procedure: colonoscopy Recent Vitals: Last Vital Signs Temp 98.3 F 04/10/18 06:31 Pulse 68 04/10/18 06:31 Resp 16 04/10/18 08:12 BP 95/57 04/10/18 06:31 Pulse Ox 92 04/10/18 08:12 H&P (including ROS) documented in medical record: Yes Previous reaction to sedatives/anesthetics: No Dietary Status: NPO after Midnight Airway Assessment: Patient can open mouth completely, TMJ function normal, Micrognathia (under-bite, receding chin) absent, Neck with adequate range of motion Dentition: No loose teeth or bridges Possible difficult airway: No ASA Classification *see protocol: CLASS II-Mild systemic disease Plan of Care: Pt appropriate candidate for procedure/moderate/conscious sedation, Risks/benefits of procedure/sedation discussed w/ patient/family, If not NPO; Risk of intake outweiged by necessity to perform procedure Cardiac Registry (Cardio Only) - Clincal Frailty Scale Clinical Frailty Scale: Managing Well
[2018-04-10] MEDS ORDERED: 0.9 % Sodium Chloride 1,000 ML ONE (10:50)
--- NOTE | 2018-04-10 11:26 | IR Procedure Note ---
Date of procedure: 04/10/18 Consent Obtained: Written consent Timeout: Correct patient and procedure verified, Correct site verified, Time out performed, Skin prep completed Indications: pelvic diverticular abscess Procedure Performed: CT drainage Was there an assistant curator present: No Site/Technique: transgluteal access, 14F drain Results/Findings: 30cc smelly pus, sent for cultures Estimated blood loss (cc): 0 Complications: None; Tolerated procedure well Post Procedure Treatment Plan: dc to floor Specimen: pus sent for cultures
--- NOTE | 2018-04-10 11:45 | Event Note ---
Date of Encounter: 04/10/18 Time of Encounter: 11:41 General Surgery - surgical consultation placed with me at the patient's request. Patient was not in his room at the time of my presentation having undergone percutaneous drainage of the quentin sigmoid abscess by interventional radiology. X-rays reviewed with [facility]. With the successful percutaneous drainage. Recommended continued nothing by mouth, IV antibiotics and appropriate pain control Surgical intervention will be terminated once I have had the opportunity to e xamine the patient and discuss his treatment options.
--- NOTE | 2018-04-10 12:54 | Internal Med Progress Note ---
Hospitalist Progress Note - Encounter Date of Encounter: 04/10/18 Time of Encounter: 09:30 - Subjective Interval History: Mr. Salinas is a 67 year old male with past medical history of nephrolithiasis, prostatitis, and COPD who presents to the ED due to abdominal pain from last Tuesday. He described the pain as pressure-like radiating across the lower belly. CT scan revealed acute sigmoid diverticulitis with an over 6 cm pericolonic abscess. He was admitted in the hospital and started him empirical abx Levaquin and Flagyl. Now his pain is little better. Denied any N/V. Denied any melena / BRBPR - Exam Vitals: Temp Pulse Resp BP Pulse Ox 97.2 F L 72 16 121/73 92 04/10/18 12:05 04/10/18 12:05 04/10/18 12:05 04/10/18 12:05 04/10/18 12:05 Exam: Gen: Alert, awake, Oriented to time,place and person Chest: Diminished breath sounds B/L, No wheezing, No crackles, No rales Heart: S1S2+ RRR No murmurs Abd: Soft, moderate tenderness in lower abdomen, supra pubic region, BS +, No organomegaly Ext: No edema, pulses are palpable, No calf tenderness Neuro : Benign findings Skin: No rash. - Assessment and Plan (1) Acute diverticulitis Current Visit: Yes Status: Acute Assessment and Plan: Acute sigmoid diverticulitis complicated by a 6.5 x 3.9 pericolonic abscess IR had CT guided drainage done this morning and removed 30 CC pus will f/u on cx results cont empirical abx Levaquin and Flagyl trend on WBC surgery consulted Strict NPO for now IV hydration IV analgesics cont close monitoring (2) COPD (chronic obstructive pulmonary disease) Current Visit: Yes Status: Acute Assessment and Plan: stable.. Not in exacerbation resumed home INH regimen (3) Hyperlipidemia Current Visit: No Status: Chronic Assessment and Plan: resumed home med statin (4) Hypertension Current Visit: No Status: Resolved Assessment and Plan: Blood pressure stable resumed home meds (5) DVT prophylaxis Current Visit: Yes Status: Acute Assessment and Plan: Subcutaneous heparin - Time Spent with Patient Total time spent is greater than 50% in coordination of care (as documented) at patient's floor/unit and/or counseling patient: Internal Medicine: Result - Labs CBC & Chem 7: 04/10/18 05:35 04/10/18 05:35 Labs: Short CBC 04/09/18 04/10/18 Range/Units 21:42 05:35 WBC 15.0 H 11.8 H (4.3-11.1) K/mcL Hgb 14.3 12.6 L D (12.9-16.9) g/dL Hct 41.4 37.7 (37.5-50.1) % Plt Count 324 277 (140-400) K/mcL Neutrophils # 10.5 H 8.2 (1.6-8.9) K/mcL BMP 04/09/18 04/10/18 21:42 05:35 Sodium 138 140 Potassium 3.5 3.3 L Chloride 102 107 Carbon Dioxide 25 26 BUN 18 20 Creatinine 1.02 1.06 Glucose 93 78 Calcium 9.8 8.8 Liver Function 04/09/18 04/10/18 Range/Units 21:42 05:35 Total Bilirubin 0.6 0.4 (0.3-1.0) mg/dL Direct Bilirubin 0.2 (0.0-0.2) mg/dL AST 13 10 L (13-39) Units/L ALT 17 13 (7-52) Units/L Alkaline Phosphatase 64 52 (34-104) Units/L Albumin 3.9 3.2 L (3.5-5.7) g/dL Urine 04/09/18 Range/Units 21:17 Urine Color Yellow (Yellow) Urine Clarity Cloudy A (Clear) Urine pH 7.5 (5.0-8.0) pH Units Ur Specific [place] 1.013 (1.010-1.025) Urine Protein Negative (Neg-Trace) mg/dL Urine Glucose (UA) Normal (Normal) mg/dL - ABG Interpretation ABG results: PT/INR, D-dimer PT 14.0 Seconds (9.4-12.1) H 04/10/18 05:35 - Impressions Impressions Abdomen/Pelvis CT 04/09/18 21:29 IMPRESSION: 1. Acute sigmoid diverticulitis with an adjacent 6.9 x 3.6 cm pericolonic abscess. 2. Gallbladder sludge versus stones. 3. Prostatic hypertrophy. 4. Nonobstructing left renal calculus. D/ / 04/10/2018 07:03:10 Jaymie Ospina MD / Annabelle Odell Interpreting Provider: Jaymie Ospina MD Retroperitoneal Abscess Drainage 04/10/18 00:00 IMPRESSION: Successful CT guided placement of a pelvic diverticular abscess drainage catheter. The left transgluteal approach was used. D/ / 04/10/2018 12:33:47 Gena Byrd MD / mirta Interpreting Provider: Gena Byrd MD Consult Discharge Plan - Plan Referrals: Ammon Maradiaga DO [Primary Care Provider] - (3) Hyperlipidemia Qualifiers: Hyperlipidemia type: Pure hypercholesterolemia (4) Hypertension Qualifiers: Hypertension type: essential hypertension Qualified Code(s): I10 - Essential (primary) hypertension
[2018-04-10] MEDS: D5% in 0.45% NACL w KCl 20 MEQ/1,000 ML MLS IVC SCH (15:02)
[2018-04-10] MEDS: *HR* FentaNYL (PF) 100 MCG/2 ML VIAL IVP PRN ×2 (15:33→19:40)
[2018-04-11] MEDS: MetroNIDAZOLE 500 MG/100 ML 500 MG/100 ML BAG IVPB SCH ×4 (00:24→23:53)
[2018-04-11] MEDS: *HR* Heparin 5,000 UNIT/ML VIAL SQ SCH ×4 (00:24→23:54)
[2018-04-11] MEDS: *HR* FentaNYL (PF) 100 MCG/2 ML VIAL IVP PRN ×5 (00:39→19:35)
[2018-04-11] MEDS: D5% in 0.45% NACL w KCl 20 MEQ/1,000 ML MLS IVC SCH ×2 (00:41→17:59)
[2018-04-11] MEDS: OXYCODONE Oral CONC 10 MG/0.5 ML ORAL.SYG SL PRN ×4 (03:48→17:22)
[2018-04-11 06:29] LABS: Basophils % 0.2 %; Eosinophils # 0.1 K/mcL (0.0-0.6); Eosinophils % 0.6 %; Hematocrit 34.7 % (37.5-50.1); Hemoglobin 11.6 g/dL (12.9-16.9); Immature Granulocytes % 0.6 % (0-4); Lymphocytes # 1.3 K/mcL (0.6-4.6); Lymphocytes % 9.8 %; Mean Corpuscular HGB Conc 33.4 g/dL (31.6-35.5); Mean Corpuscular Hemoglobin 30.9 pg (28.0-33.3); Mean Corpuscular Volume 92.5 fL (83.0-100.0); Mean Platelet Volume 10.7 fL (9.4-12.4); Monocytes # 0.8 K/mcL (0.0-1.3); Monocytes % 6.4 %; Neutrophils # 10.8 K/mcL (1.6-8.9); Platelet Count 275 K/mcL (140-400); Red Blood Count 3.75 M/mcL (4.19-5.50); Red Cell Distribution Width 13.6 % (11.5-14.5); Segmented Neutrophils % 82.4 %
[2018-04-11 06:46] LABS: BUN/Creatinine Ratio 17 (6-26); Blood Urea Nitrogen 16 mg/dL (8-23); Calcium 8.1 mg/dL (8.6-10.3); Carbon Dioxide 24 mEq/L (23-29); Chloride 108 mEq/L (98-107); Glucose 126 mg/dL (70-105); Osmolality,Calculated 289 (280-300); Potassium 3.4 mEq/L (3.5-5.1); Sodium 138 mEq/L (136-145); eGFR For Non-African Americans > 60 (> 60)
[2018-04-11] MEDS: Levofloxacin 750 MG/150 ML 750 MG/150 ML BAG IVPB SCH (08:06)
[2018-04-11] MEDS ORDERED: amLODIPine 5 MG TABLET PO SCH (09:00)
[2018-04-11] MEDS ORDERED: 0.9 % Sodium Chloride 250 ML ONE (10:49)
[2018-04-11] MEDS: Tiotropium 18 MCG inhalation IH SCH (11:03)
[2018-04-11] MEDS: Budesonide/Formoterol 160/4.5 1 PUFF INH IH SCH ×2 (11:04→19:50)
[2018-04-11] MEDS ORDERED: NON-FORMULARY MEDICATION 1 EACH EACH (Roflumilast [Daliresp] 500 MCG) PO SCH (11:30)
[2018-04-11] MEDS ORDERED: Ringers Solution, Lactated 1,000 ML IVC SCH (11:45)
[2018-04-11] MEDS: Roflumilast [Daliresp] 500 MCG PO SCH (12:12)
--- NOTE | 2018-04-11 15:03 | Internal Med Progress Note ---
<Valerie Castillo - Last Filed: 04/11/18 15:18> Hospitalist Progress Note - Encounter Time of Encounter: 15:24 - Exam Vitals: Temp Pulse Resp BP Pulse Ox 98.6 F 87 18 107/68 92 04/11/18 14:57 04/11/18 14:57 04/11/18 14:57 04/11/18 14:57 04/11/18 14:57 - Assessment and Plan (1) COPD exacerbation Current Visit: No Status: Acute (2) Hyperlipidemia Current Visit: No Status: Chronic (3) Hypertension Current Visit: No Status: Resolved (4) Acute diverticulitis Current Visit: Yes Status: Acute (5) Leukocytosis Current Visit: Yes Status: Acute (6) DVT prophylaxis Current Visit: Yes Status: Acute - Time Spent with Patient Total time spent is greater than 50% in coordination of care (as documented) at patient's floor/unit and/or counseling patient: Internal Medicine: Result - Labs CBC & Chem 7: 04/11/18 05:30 04/11/18 05:30 Labs: Short CBC 04/11/18 Range/Units 05:30 WBC 13.1 H (4.3-11.1) K/mcL Hgb 11.6 L (12.9-16.9) g/dL Hct 34.7 L (37.5-50.1) % Plt Count 275 (140-400) K/mcL Neutrophils # 10.8 H (1.6-8.9) K/mcL BMP 04/11/18 05:30 Sodium 138 Potassium 3.4 L Chloride 108 H Carbon Dioxide 24 BUN 16 Creatinine 0.95 Glucose 126 H Calcium 8.1 L - ABG Interpretation ABG results: PT/INR, D-dimer PT 14.0 Seconds (9.4-12.1) H 04/10/18 05:35 - Impressions Impressions Abdomen/Pelvis CT 04/09/18 21:29 IMPRESSION: 1. Acute sigmoid diverticulitis with an adjacent 6.9 x 3.6 cm pericolonic abscess. 2. Gallbladder sludge versus stones. 3. Prostatic hypertrophy. 4. Nonobstructing left renal calculus. D/ / 04/10/2018 07:03:10 Jaymie Ospina MD / Annabelle Odell Interpreting Provider: Jaymie Ospina MD Retroperitoneal Abscess Drainage 04/10/18 00:00 IMPRESSION: Successful CT guided placement of a pelvic diverticular abscess drainage catheter. The left transgluteal approach was used. D/ / 04/10/2018 12:33:47 Gena Byrd MD / mirta Interpreting Provider: Gena Byrd MD Consult Discharge Plan - Plan Referrals: Ammon Maradiaga DO [Primary Care Provider] - - Attending Attestation I saw evaluated and examined this patient and my medical decision-making was reviewed with the Resident Physician, Bernadette De La Torre. I agree with the documented findings, disposition and treatment plan as described except to any changes set forth below. We independently had [id number] contact with the patient. Patient had severe abdominal pain on the right side of his lower abdomen earlier this morning. After changing his position, and along with pain medications it has somewhat improved. Patient has also been having low normal blood pressure. He denies any dizziness or lightheadedness. No nausea or vomiting. Patient denies having trouble urinating but he did have a lot of pain in his abdomen and was therefore not able to bathe to urinate prior to coming to the hospital. On examination, patient is awake and alert. Abdomen is soft, tender in the left lower quadrant and right lower quadrant. Drain in place. Heart sounds are normal. Patient has decreased air entry bilaterally with mild end expiratory wheezing. Acute diverticulitis with abscess: Status post CT-guided drainage. Awaiting culture results. At this time it appears to be growing 2 sets of gram-negative rods. Given the high prevalence of Proteus with fluoroquinolone resistance here, we will change antibiotic to cefepime and Flagyl while we await culture results. Continue IV fluids. COPD: Continue bronchodilators. O2 supplementation as needed. High risk for complications. <Bernadette De La Torre E - Last Filed: 04/11/18 15:37> Hospitalist Progress Note - Encounter Date of Encounter: 04/11/18 Time of Encounter: 09:00 - Subjective Interval History: Patient was examined at bedside. No acute distress. Patient says his pain is well controlled with medications. States he is starting to feel somewhat better. He denies any bowel movements, nausea or vomiting. - Exam Vitals: Temp Pulse Resp BP Pulse Ox 98.1 F 79 17 97/60 93 04/11/18 11:16 04/11/18 11:16 04/11/18 11:16 04/11/18 11:16 04/11/18 11:16 Exam: General: AAOx3, answers qeustions appropriately Cardio: RRR, no murmurs, rubs, gallops Pulm: CTAB, no wheezing, rales, or rhonchi Extremities: no pedal edema Skin: warm, dry intact Drain: serosanguinous drainage with some fibrinous material - Assessment and Plan (1) Acute diverticulitis Current Visit: Yes Status: Acute Assessment and Plan: Acute sigmoid diverticulitis complicated by a 6.5 x 3.9 pericolonic abscess IR had CT guided drainage done 04/10 and removed 30 CC pus will f/u on cx results cont empirical abx Levaquin and Flagyl trend on WBC surgery consulted NPO IV hydration IV analgesics (2) COPD (chronic obstructive pulmonary disease) Current Visit: Yes Status: Acute Assessment and Plan: Stable No exacerbation Continue home medications (3) Hyperlipidemia Current Visit: No Status: Chronic Assessment and Plan: Resume home medication (4) Hypertension Current Visit: No Status: Resolved Assessment and Plan: Fluids started for hypotension DVT Prophylaxis: subq heparin - Time Spent with Patient Total time spent is greater than 50% in coordination of care (as documented) at patient's floor/unit and/or counseling patient: Internal Medicine: Result - Labs CBC & Chem 7: 04/11/18 05:30 04/11/18 05:30 Labs: Short CBC 04/11/18 Range/Units 05:30 WBC 13.1 H (4.3-11.1) K/mcL Hgb 11.6 L (12.9-16.9) g/dL Hct 34.7 L (37.5-50.1) % Plt Count 275 (140-400) K/mcL Neutrophils # 10.8 H (1.6-8.9) K/mcL BMP 04/11/18 05:30 Sodium 138 Potassium 3.4 L Chloride 108 H Carbon Dioxide 24 BUN 16 Creatinine 0.95 Glucose 126 H Calcium 8.1 L - ABG Interpretation ABG results: PT/INR, D-dimer PT 14.0 Seconds (9.4-12.1) H 04/10/18 05:35 - Impressions Impressions Abdomen/Pelvis CT 04/09/18 21:29 IMPRESSION: 1. Acute sigmoid diverticulitis with an adjacent 6.9 x 3.6 cm pericolonic abscess. 2. Gallbladder sludge versus stones. 3. Prostatic hypertrophy. 4. Nonobstructing left renal calculus. D/ / 04/10/2018 07:03:10 Jaymie Ospina MD / Annabelle Odell Interpreting Provider: Jaymie Ospina MD Retroperitoneal Abscess Drainage 04/10/18 00:00 IMPRESSION: Successful CT guided placement of a pelvic diverticular abscess drainage catheter. The left transgluteal approach was used. D/ / 04/10/2018 12:33:47 Gena Byrd MD / mirta Interpreting Provider: Gena Byrd MD <Bernadette De La Torre - Last Filed: 04/11/18 15:37> (3) Hyperlipidemia Qualifiers: Hyperlipidemia type: unspecified Qualified Code(s): E78.5 - Hyperlipidemia, unspecified (4) Hypertension Qualifiers: Hypertension type: essential hypertension Qualified Code(s): I10 - Essential (primary) hypertension
--- NOTE | 2018-04-11 16:14 | General Surgery Consult Note ---
Date of Encounter: 04/11/18 Time of Encounter: 14:54 History of Present Illness Reason for consult: abdominal pain (acute perforated sigmoid diverticulitis with quentin colic abscess) Requesting physician: Mary Ann Morgan History of present illness: 67-year-old, admitted to [facility] after presenting to the emergency department, 04/09/18, with approximately 5-day history of progressive lower abdominal pain. Patient describes sudden onset of pain on Tuesday or Tuesday while hunting in [place]. He experienced steady progression of the pain and presented to [facility] for further evaluation and treatment on his return home, . Findings include a leukocytosis of 15,000 with 10.5 neutrophils. Hemoglobin was 14.3 with hematocrit 41.4; electrolytes, BUN, creatinine were within normal limits. LFTs and urinalysis was nondiagnostic. CT of the abdomen/pelvis demonstrated wall thickening of the mid sigmoid colon with pericolonic stranding. A 6.9 x 3.6 cm gas and fluid collection posteriorly adjacent to the rectosigmoid colon was described. Incidental notation of hyperdense material within the gallbladder along with a nonobstructing left renal calculus was also described. The findings are consistent with acute sigmoid diverticulitis with perforation and an adjacent quentin-colic abscess. Surgical consultation was placed on 04/10/18. Interventional Radiology was also consulted. Percutaneous drainage of the pericolic abscess was completed the a.m. of 04/10/18. The patient was not in his room on my initial presentation to bedside, 04/10/18. However, the patient and his were present today. The patient is feeling somewhat improved but still complaining of severe lower abdominal pain consistent with the clinical and radiologic findings. 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 Kerr Allergies: Penicillin and sulfa Medications: Albuterol sulfate (ProAir HFA) 2 puffs every 4 hours that Budesonide/formoterol 160/4.5 g per actuation 2 puffs twice a day Roflumilast 500 g by mouth daily Hydrochlorothiazide 25 mg by mouth daily Vitamins (IV vitaminminerals) 1 tab by mouth daily - this appears to be a prescription from July 2017 and not believed to be currently active Acetylcysteine 1200 mg by mouth daily Atorvastatin 40 mg by mouth daily at bedtime Fenofibrate 160 mg by mouth daily Tiotropium 1 puff by mouth daily as needed PreserVision vitamins 1 By mouth daily Social history: Patient admits tobacco use; 3-4 packs daily for 45 years; he quit approximately 6 years ago. He admits to an occasional alcoholic beverage; he denies any illicit drug use Physical examination: Age-appropriate male resting comfortably in his hospital bed. He admits to not having been out of bed since admission as it is been too painful. He is 1.68 m tall, 67.8 kg, BMI 24.1. Maximum temperature since admission, 99.9; pulse 77 and 87; respirations 18, blood pressure 107/68. The patient is on 2 L per nasal cannula to maintain O2 saturations 92-94% Lungs: Clear with no obvious pain and deep inspiration; bibasilar breath sounds are diminished Cardiac: Regular rate with no appreciable murmurs Abdomen: Soft with active bowel sounds. Suprapubic and right lower quadrant tenderness most pronounced. No discernible masses, no rebound. Extremities: No obvious clubbing, cyanosis, or edema. Laboratories: I count today 13.1 after improving to 11.8 yesterday (likely increased following percutaneous drainage/manipulation of the pericolic abscess) Hemoglobin has fallen to 11.6 with hematocrit 34.7 with hydration, neutrophils remain elevated at 10.8 - again elevated following placement of the drain Electrolytes notable for hypokalemia, 3.4, BUN 16, creatinine 0.95 Impression: 67-year-old male with acute sigmoid diverticulitis with resultant perforation and pericolic abscess. Symptoms began abruptly approximately 1 week ago. The patient has improved since admission with slight decrease in his abdominal pain. The patient has demonstrated a low-grade fever but has remained hemodyn amically stable. The patient is nothing by mouth; he does not describe any effective nutrition for the last 6 days. Lengthy discussion with the patient and his regarding his current status and potential surgical intervention. If he responds to drainage of the pericolic abscess with resolution of abdominal pain, low-grade fever, and leukocytosis I anticipate deferring surgery until the acute inflammatory changes have resolved. This will increase the opportunity to complete a primary rese ction (sigmoid colectomy with stapled colocolonic anastomosis). If the patient remains symptomatic/refractory to current treatment, then surgical intervention will become more urgent and more likely result in a Doug procedure (sigmoid colectomy with end colostomy). Recommendations: Continue current antibiotics - cefepime and metronidazole Maintain NPO - except for medications. Increase pulmonary toilet to include incentive spirometry; change when necessary albuterol 2 [id number] Consult invasive line team and nutrition for IV access and initiation of TPN. Nutrition has been contacted to begin TPN tomorrow. I will follow along with you and make further recommendations as the patient's condition dictates. Past Med Surg Social Fam HX - Past Medical History Medical history: COPD, hyperlipidemia, hypertension, kidney stones Psychiatric history: no psych history - Past Surgical History Additional surgical history: sinus sx, kidney stone sx - Social History Smoking Status: Former smoker Smokeless Tobacco Status: No Alcohol use: rarely Drug use: none - Family History Mother Living Status: Hx Family Endocrine Disorder: Yes (DM) Medications and Allergies Albuterol Sulfate [Proair Hfa] 2 puff IH Q4H PRN 12/26/15 [History] Budesonide/Formoterol 160/4.5 [Symbicort 160/4.5] 2 puff IH BIDR 12/26/15 [History] Roflumilast [Daliresp] 500 mcg PO DAILY 12/26/15 [History] hydroCHLOROthiazide [Hydrochlorothiazide] 25 mg PO DAILY 10/24/16 [History] Vit A/C/E AC/Znox/Cupric Oxide [Eye Vitamin-Minerals Tablet] 1 tab PO DAILY 07/25/17 [History] levoFLOXacin [Levaquin] 500 mg PO DAILY #20 tablet 04/09/18 [Rx] Acetylcysteine [P-Yezmti-r-Cysteine] 1,200 mg PO DAILY 04/10/18 [History] Atorvastatin [Lipitor] 40 mg PO HS 04/10/18 [History] Fenofibrate Nanocrystallized [Triglide] 160 mg PO DAILY 04/10/18 [History] Tiotropium [Spiriva] 1 puff PO DAILY PRN 04/10/18 [History] Vit C/E/Zn/Coppr/Lutein/Zeaxan [Preservision Areds 2 Softgel] 1 cap PO DAILY 04/10/18 [History] Allergy/AdvReac Type Severity Reaction Status Date / Time Penicillins Allergy Hives Verified 04/10/18 14:27 Sulfa (Sulfonamide Allergy Hives Verified 04/10/18 14:27 Antibiotics) Review of Systems All systems PM: The remainder of the systems were reviewed and are negative General Surgery Exam Initial Vital Signs Temp Pulse Resp BP Pulse Ox 98.6 F 88 12 126/83 98 04/09/18 21:14 04/09/18 21:14 04/09/18 21:14 04/09/18 21:14 04/09/18 21:14 Exam Initial Vital Signs Temp Pulse Resp BP Pulse Ox 98.6 F 88 12 126/83 98 04/09/18 21:14 04/09/18 21:14 04/09/18 21:14 04/09/18 21:14 04/09/18 21:14 Results - Labs 04/11/18 05:30 04/11/18 05:30 Abnormal lab results WBC 13.1 K/mcL (4.3-11.1) H 04/11/18 05:30 RBC 3.75 M/mcL (4.19-5.50) L 04/11/18 05:30 Hgb 11.6 g/dL (12.9-16.9) L 04/11/18 05:30 Hct 34.7 % (37.5-50.1) L 04/11/18 05:30 Neutrophils # 10.8 K/mcL (1.6-8.9) H 04/11/18 05:30 PT 14.0 Seconds (9.4-12.1) H 04/10/18 05:35 Potassium 3.4 mEq/L (3.5-5.1) L 04/11/18 05:30 Chloride 108 mEq/L (98-107) H 04/11/18 05:30 Glucose 126 mg/dL (70-105) H 04/11/18 05:30 Calcium 8.1 mg/dL (8.6-10.3) L 04/11/18 05:30 AST 10 Units/L (13-39) L 04/10/18 05:35 Serum Total Protein 5.4 g/dL (6.4-8.9) L 04/10/18 05:35 Albumin 3.2 g/dL (3.5-5.7) L 04/10/18 05:35 Globulin 2.2 g/dL (2.4-3.5) L 04/10/18 05:35 Urine Clarity Cloudy (Clear) A 04/09/18 21:17 Diabetes panel 04/11/18 Range/Units 05:30 Sodium 138 (136-145) mEq/L Potassium 3.4 L (3.5-5.1) mEq/L Chloride 108 H (98-107) mEq/L Carbon Dioxide 24 (23-29) mEq/L BUN 16 (8-23) mg/dL Creatinine 0.95 (0.70-1.30) mg/dL Glucose 126 H (70-105) mg/dL Calcium 8.1 L (8.6-10.3) mg/dL Calcium panel 04/11/18 Range/Units 05:30 Calcium 8.1 L (8.6-10.3) mg/dL Pituitary panel 04/11/18 Range/Units 05:30 Sodium 138 (136-145) mEq/L Potassium 3.4 L (3.5-5.1) mEq/L Chloride 108 H (98-107) mEq/L Carbon Dioxide 24 (23-29) mEq/L BUN 16 (8-23) mg/dL Creatinine 0.95 (0.70-1.30) mg/dL Glucose 126 H (70-105) mg/dL Calcium 8.1 L (8.6-10.3) mg/dL Adrenal panel 04/11/18 Range/Units 05:30 Sodium 138 (136-145) mEq/L Potassium 3.4 L (3.5-5.1) mEq/L Chloride 108 H (98-107) mEq/L Carbon Dioxide 24 (23-29) mEq/L BUN 16 (8-23) mg/dL Creatinine 0.95 (0.70-1.30) mg/dL Glucose 126 H (70-105) mg/dL Calcium 8.1 L (8.6-10.3) mg/dL All other labs normal. Consult Discharge Plan - Plan Referrals: Ammon Maradiaga DO [Primary Care Provider] -
[2018-04-11] MEDS: Cefepime HCl 2,000 MG in Water for inj. (sterile) 20 ML 20 ML IVP SCH (17:22)
[2018-04-11] MEDS ORDERED: Acetaminophen 325 MG TABLET PO PRN (20:44)
[2018-04-12] MEDS: *HR* FentaNYL (PF) 100 MCG/2 ML VIAL IVP PRN ×2 (00:08→08:04)
[2018-04-12] MEDS: OXYCODONE Oral CONC 10 MG/0.5 ML ORAL.SYG SL PRN ×4 (01:16→15:44)
[2018-04-12 04:26] LABS: Basophils % 0.2 %; Eosinophils # 0.1 K/mcL (0.0-0.6); Eosinophils % 0.6 %; Hematocrit 34.3 % (37.5-50.1); Hemoglobin 11.3 g/dL (12.9-16.9); Immature Granulocytes % 0.7 % (0-4); Lymphocytes # 0.8 K/mcL (0.6-4.6); Lymphocytes % 6.1 %; Mean Corpuscular HGB Conc 32.9 g/dL (31.6-35.5); Mean Corpuscular Hemoglobin 30.8 pg (28.0-33.3); Mean Corpuscular Volume 93.5 fL (83.0-100.0); Mean Platelet Volume 10.7 fL (9.4-12.4); Neutrophils # 10.6 K/mcL (1.6-8.9); Platelet Count 235 K/mcL (140-400); Red Blood Count 3.67 M/mcL (4.19-5.50); Red Cell Distribution Width 13.5 % (11.5-14.5); Segmented Neutrophils % 84.4 %
[2018-04-12 04:46] LABS: BUN/Creatinine Ratio 17 (6-26); Blood Urea Nitrogen 14 mg/dL (8-23); Carbon Dioxide 24 mEq/L (23-29); Chloride 107 mEq/L (98-107); Glucose 130 mg/dL (70-105); Magnesium 1.6 mg/dL (1.6-2.6); Osmolality,Calculated 288 (280-300); Phosphorous 1.7 mg/dL (2.7-4.5); Potassium 3.3 mEq/L (3.5-5.1); Sodium 138 mEq/L (136-145); eGFR For Non-African Americans > 60 (> 60)
[2018-04-12] MEDS: Cefepime HCl 2,000 MG in Water for inj. (sterile) 20 ML 20 ML IVP SCH (05:46)
[2018-04-12] MEDS: 0.9 % Sodium Chloride 1,000 ML IVC SCH (07:01)
[2018-04-12] MEDS: D5% in 0.45% NACL w KCl 20 MEQ/1,000 ML MLS IVC SCH ×2 (07:02→09:10)
[2018-04-12] MEDS: Tiotropium 18 MCG inhalation IH SCH (07:44)
[2018-04-12] MEDS: Budesonide/Formoterol 160/4.5 1 PUFF INH IH SCH ×2 (07:44→20:35)
[2018-04-12] MEDS: *HR* Heparin 5,000 UNIT/ML VIAL SQ SCH ×2 (09:04→15:09)
[2018-04-12] MEDS: MetroNIDAZOLE 500 MG/100 ML 500 MG/100 ML BAG IVPB SCH ×2 (09:05→15:00)
[2018-04-12] MEDS: Roflumilast [Daliresp] 500 MCG PO SCH (09:08)
[2018-04-12] MEDS ORDERED: *HR* FentaNYL PATCH 25 MCG PATCH TD SCH (10:00)
[2018-04-12] MEDS ORDERED: OXYCODONE Oral CONC 10 MG/0.5 ML ORAL.SYG SL PRN (10:01)
[2018-04-12] MEDS: Levofloxacin 750 MG/150 ML 750 MG/150 ML BAG IVPB SCH (11:03)
[2018-04-12] MEDS ORDERED: D10% in Water 500 ML IVC PRN (11:57)
[2018-04-12] MEDS ORDERED: Potassium Phosphate 44 MEQ in 0.9 % Sodium Chloride 250 ML IVPB ONE (14:25)
--- NOTE | 2018-04-12 16:03 | Internal Med Progress Note ---
Hospitalist Progress Note - Encounter Date of Encounter: 04/12/18 Time of Encounter: 15:58 - Subjective Interval History: Patient reports continued pain mainly in the right lower quadrant of his abdomen. Improved somewhat compared to yesterday. He reports pain is worse at night while he is lying down and improves when he sits up. He denies any fevers or chills. Has been nothing by mouth per surgery recommendations. - Exam Vitals: Temp Pulse Resp BP Pulse Ox 98.7 F 82 14 100/66 95 04/12/18 15:40 04/12/18 15:40 04/12/18 15:40 04/12/18 15:40 04/12/18 15:40 Exam: General: Patient is alert, no acute distress, oriented x 3 Respiratory: Good respiratory effort. Prolonged expiratory phase. Mild bilateral wheezing. Cardiovascular: Regular rate and rhythm. s1 and s2 normal No clicks, rubs, gallops, or murmurs. No pedal edema Abdomen: Abdomen is soft, tender in the right lower quadrant. Bowel sounds are present and intra-abdominal drain present.. Musculoskeletal: Spontaneously moving all extremities Skin: warm, dry, intact. Neuro: Alert oriented x 3 normal cranial nerves, no focal deficits - Assessment and Plan (1) Acute diverticulitis Current Visit: Yes Status: Acute Assessment and Plan: With Abscess. S/p CT-guided drain placement. Surgery following. Keep nothing by mouth. Patient to be started on TPN today. Monitor electrolytes closely. Continue IV antibiotics. High risk for complications including acute infections and sepsis. Fluid culture is growing Escherichia coli and Proteus which are both sensitive to Levaquin. Will change antibiotic to Levaquin. Stop Flagyl after 5 days of treatment. (2) COPD exacerbation Current Visit: Yes Status: Acute Assessment and Plan: Mild exacerbation. Continue scheduled bronchodilators. (3) Hyperlipidemia Current Visit: Yes Status: Chronic Assessment and Plan: Continue Lipitor (4) Hypertension Current Visit: Yes Status: Chronic Assessment and Plan: Well controlled. (5) Leukocytosis Current Visit: Yes Status: Acute Assessment and Plan: Due to diverticulitis. Improving (6) DVT prophylaxis Current Visit: Yes Status: Acute Assessment and Plan: On subcutaneous heparin - Time Spent with Patient Total time spent is greater than 50% in coordination of care (as documented) at patient's floor/unit and/or counseling patient: Internal Medicine: Result - Labs CBC & Chem 7: 04/12/18 04:00 04/12/18 04:00 Labs: Short CBC 04/12/18 Range/Units 04:00 WBC 12.6 H (4.3-11.1) K/mcL Hgb 11.3 L (12.9-16.9) g/dL Hct 34.3 L (37.5-50.1) % Plt Count 235 (140-400) K/mcL Neutrophils # 10.6 H (1.6-8.9) K/mcL BMP 04/12/18 04:00 Sodium 138 Potassium 3.3 L Chloride 107 Carbon Dioxide 24 BUN 14 Creatinine 0.81 Glucose 130 H Calcium 8.0 L - ABG Interpretation ABG results: PT/INR, D-dimer PT 14.0 Seconds (9.4-12.1) H 04/10/18 05:35 Consult Discharge Plan - Plan Referrals: Ammon Maradiaga DO [Primary Care Provider] - __ (3) Hyperlipidemia Qualifiers: Hyperlipidemia type: unspecified Qualified Code(s): E78.5 - Hyperlipidemia, unspecified (4) Hypertension Qualifiers: Hypertension type: essential hypertension Qualified Code(s): I10 - Essential (primary) hypertension (5) Leukocytosis Qualifiers: Leukocytosis type: other Qualified Code(s): D72.828 - Other elevated white blood cell count
[2018-04-12] MEDS ORDERED: Clinimix E 5%-15% SOLUTION 2,000 ML with MVI, adult with vitamin K 10 ML IVC SCH (17:00)
[2018-04-12] MEDS ORDERED: *HR* FentaNYL PATCH 50 MCG PATCH TD SCH (18:33)
--- NOTE | 2018-04-12 18:45 | General Surgery Progress Note ---
Date of Encounter: 04/12/18 Time of Encounter: 17:55 Subjective Patient reports: feels better, still having pain Narrative: General Surgery - patient feeling better; pain has diminished though still remains present. The patient complained of significant cramping abdominal pain last evening but no nausea or vomiting. Patient was febrile through the night as high as 101.6 but has been afebrile through the course of today. The patient is currently afebrile at 98.7, hemodynamically stable with a pulse of 82, respirations 14, blood pressure 100/66. Lungs: Clear with no obvious abdominal pain on deep inspiration Abdomen: Soft with active bowel sounds. Tenderness in the left lower quadrant and suprapubic abdomen. The tenderness to palpation is diminished comp ared to my examination yesterday. Laboratory: leukocytosis diminished to 12.6, hemoglobin 11.3 with hematocrit 34.3. Neutrophils remain elevated at 10.6. Electrolytes notable for potassium of 3.3, BUN 14, creatinine 0.81. Phosphorus 1.7 Impression: Acute sigmoid diverticulitis with perforation and pericolic abscess. Status appears to be improving with IV antibiotics Status post percutaneous drainage of the pericolic abscess per [place] Interventional Radiology Initiation of TPN today for calories and protein until enteral nutrition is possible Plan: Continue IV antibiotics repeat labs in AM Review of records show a confusing array of pain medications - these medications will be discontinued to be replaced with a Fentanyl Patch 50mcg/72H and oxycdone IR 10 po Q4H prn breakthrough pain Treatment plan discussed with patient and his Objective Vital Signs - Last 8 Hours Temp Pulse Resp BP Pulse Ox 04/12/18 15:40 98.7 F 82 14 100/66 95 04/12/18 11:26 97.9 F 88 17 107/64 94 04/12/18 11:20 16 97 Intake and Output 04/12/18 04/12/18 04/12/18 07:59 15:59 23:59 Intake Total 3370 / 3370 1707 / 1707 100 / 100 Output Total 355 / 355 Balance 3015 / 3015 1707 / 1707 100 / 100 Intake: IV Fluids 3370 / 3370 1707 / 1707 100 / 100 KCl 20mEq IN D5%-0.45 NACL 20 1457 / 1457 meq In 1,000 ml @ 75 mls/hr IVC .[id number] [facility] Rx#:[id number] Maxipime 2,000 MG In Water for 20 / 20 inj. (sterile) 20 ML @ 300 mls/ hr IVP Q12HR [facility] Rx#:[id number] Levaquin Premix 750mg/150 mL 150 / 150 750 mg In 150 ml @ 100 mls/hr IVPB DAILY [facility] Rx#:[id number] Flagyl Premix 500 MG/100 ML 500 100 / 100 100 / 100 100 / 100 mg In 100 ml @ 100 mls/hr IVPB Q8HR [facility] Rx#:[id number] Oral 0 / 0 0 / 0 Output: Urine 0 / 0 Catheter 350 / 350 Wound Drainage 5 / 5 Left Buttock 5 / 5 Other: Meal NPO Percent of Meal Consumed 0% Weight 67.8 kg Blood Glucose* 111 179 101 Patient Weight 04/12/18 23:59 Weight 67.8 kg - Labs 04/12/18 04:00 04/12/18 04:00 Diabetes panel 04/12/18 04/12/18 Range/Units 04:00 04:00 Sodium 138 (136-145) mEq/L Potassium 3.3 L (3.5-5.1) mEq/L Chloride 107 (98-107) mEq/L Carbon Dioxide 24 (23-29) mEq/L BUN 14 (8-23) mg/dL Creatinine 0.81 (0.70-1.30) mg/dL Glucose 130 H (70-105) mg/dL Calcium 8.0 L (8.6-10.3) mg/dL Triglycerides 95 (< 150) mg/dL Calcium panel 04/12/18 Range/Units 04:00 Calcium 8.0 L (8.6-10.3) mg/dL Phosphorus 1.7 L (2.7-4.5) mg/dL Pituitary panel 04/12/18 Range/Units 04:00 Sodium 138 (136-145) mEq/L Potassium 3.3 L (3.5-5.1) mEq/L Chloride 107 (98-107) mEq/L Carbon Dioxide 24 (23-29) mEq/L BUN 14 (8-23) mg/dL Creatinine 0.81 (0.70-1.30) mg/dL Glucose 130 H (70-105) mg/dL Calcium 8.0 L (8.6-10.3) mg/dL Adrenal panel 04/12/18 Range/Units 04:00 Sodium 138 (136-145) mEq/L Potassium 3.3 L (3.5-5.1) mEq/L Chloride 107 (98-107) mEq/L Carbon Dioxide 24 (23-29) mEq/L BUN 14 (8-23) mg/dL Creatinine 0.81 (0.70-1.30) mg/dL Glucose 130 H (70-105) mg/dL Calcium 8.0 L (8.6-10.3) mg/dL Consult Discharge Plan - Plan Referrals: Ammon Maradiaga DO [Primary Care Provider] -
[2018-04-12] MEDS: *HR* OxyCODONE Immed Rel 5 MG TABLET PO PRN (21:13)
[2018-04-13] MEDS: MetroNIDAZOLE 500 MG/100 ML 500 MG/100 ML BAG IVPB SCH ×3 (00:35→16:49)
[2018-04-13] MEDS: *HR* Heparin 5,000 UNIT/ML VIAL SQ SCH ×3 (00:36→16:47)
[2018-04-13] MEDS: *HR* OxyCODONE Immed Rel 5 MG TABLET PO PRN ×4 (00:49→21:35)
[2018-04-13 05:15] LABS: Basophils # 0.1 K/mcL (0.0-0.2); Basophils % 0.3 %; Eosinophils # 0.3 K/mcL (0.0-0.6); Eosinophils % 1.7 %; Hematocrit 34.9 % (37.5-50.1); Hemoglobin 11.5 g/dL (12.9-16.9); Lymphocytes # 1.2 K/mcL (0.6-4.6); Lymphocytes % 8.5 %; Mean Corpuscular Hemoglobin 30.6 pg (28.0-33.3); Mean Corpuscular Volume 92.8 fL (83.0-100.0); Mean Platelet Volume 10.6 fL (9.4-12.4); Monocytes % 6.9 %; Neutrophils # 11.7 K/mcL (1.6-8.9); Platelet Count 226 K/mcL (140-400); Red Blood Count 3.76 M/mcL (4.19-5.50); Red Cell Distribution Width 13.6 % (11.5-14.5); Segmented Neutrophils % 81.6 %
[2018-04-13 05:34] LABS: BUN/Creatinine Ratio 17 (6-26); Blood Urea Nitrogen 13 mg/dL (8-23); Calcium 8.2 mg/dL (8.6-10.3); Carbon Dioxide 23 mEq/L (23-29); Chloride 107 mEq/L (98-107); Glucose 164 mg/dL (70-105); Magnesium 1.9 mg/dL (1.6-2.6); Osmolality,Calculated 290 (280-300); Phosphorous 1.9 mg/dL (2.7-4.5); Potassium 3.3 mEq/L (3.5-5.1); Sodium 138 mEq/L (136-145); eGFR For Non-African Americans > 60 (> 60)
[2018-04-13] MEDS: Budesonide/Formoterol 160/4.5 1 PUFF INH IH SCH ×2 (07:26→20:35)
[2018-04-13] MEDS: Tiotropium 18 MCG inhalation IH SCH (07:27)
[2018-04-13] MEDS: Levofloxacin 750 MG/150 ML 750 MG/150 ML BAG IVPB SCH (09:36)
[2018-04-13] MEDS: Roflumilast [Daliresp] 500 MCG PO SCH (09:39)
[2018-04-13] MEDS ORDERED: D5% in Water 1,000 ML IVC PRN (12:21)
[2018-04-13] MEDS ORDERED: Potassium Phosphate 44 MEQ in 0.9 % Sodium Chloride 250 ML IVPB ONE (12:21)
[2018-04-13] MEDS ORDERED: Dextrose Gel 15 GM/37.5 ML TUBE PO PRN ×2 (12:21)
[2018-04-13] MEDS ORDERED: *HR* Dextrose 50 % in Water (Syg) 50 ML SYRINGE IVP PRN (12:21)
--- NOTE | 2018-04-13 14:32 | Internal Med Progress Note ---
<Nahomi Noguera N - Last Filed: 04/13/18 15:08> Hospitalist Progress Note - Encounter Date of Encounter: 04/13/18 Time of Encounter: 14:20 - Subjective Interval History: Cipriano Salinas is a 67 year old male with a PMHx of COPD, HTN, HLD who was found to have sigmoid diverticulitis w/ a 6 cm pericolonic abscess on CT scan. He is s/p percutaneous drainage of sigmoid abscess POD 3. Today he tells me he is feeling better and says his abdominal pain is improved since yesterday. Pt denies N/V, diarrhea, fevers, chills. At home, pt does not wear oxygen for his COPD. - Exam Vitals: Temp Pulse Resp BP Pulse Ox 98.4 F 84 13 105/68 92 04/13/18 13:53 04/13/18 13:53 04/13/18 13:53 04/13/18 13:53 04/13/18 13:53 Exam: General: NAD, Patient is alert, pleasant elderly male Respiratory: b/l wheezing heard throughout anterior and posterior lung ellington. No crackles or rales heard. Cardiovascular: Regular rate and rhythm. s1 and s2 normal No murmurs. No pedal edema Abdomen: Abdomen is soft, somewhat distended, TTP in RLQ and RUQ. hypoactive BS and JANES drain present. Musculoskeletal: Spontaneously moving all extremities Extremities: No lower extremity edema or cyanosis. No calf tenderness - Assessment and Plan (1) Acute diverticulitis Current Visit: Yes Status: Acute Assessment and Plan: Acute diverticulitis with sigmoid abscess -s/p percutaneous drainage of sigmoid abscess POD [address] drain in place -pain adequately controlled -fluid from abscess grew E. coli and Proteus mirabilis -pt feeling better, seems to be improving with current regimen Meets 2/4 SIRS criteria: -leukocytosis and HR 92 Plan: -continue Levaquin, day 2 -continue Flagyl, day 4 -continue pain medication regimen: Fentanyl patch and 10 mg Oxycodone -surgery following and appreciate recs -continue TPN -per surgery, pt full liquid diet -potassium 3.3 and phosphorus 1.9 today, replaced with potassium phosphorus (2) Leukocytosis Current Visit: Yes Status: Acute Assessment and Plan: WBC 14.3 today -yesterday 12.6 -Tmax last night 99.1 F axillary -continue to monitor -seems to be improving clinically -continue IS (3) COPD exacerbation Current Visit: Yes Status: Acute Assessment and Plan: -continue home meds -currently on 2 L NC -try to wean oxygen (4) Hyperlipidemia Current Visit: Yes Status: Chronic Assessment and Plan: -continue home lipitor (5) Hypertension Current Visit: Yes Status: Chronic Assessment and Plan: -holding home HTN medications (6) DVT prophylaxis Current Visit: Yes Status: Acute Assessment and Plan: SQ heparin (7) Urinary retention Current Visit: Yes Status: Acute Assessment and Plan: continue home Flomax (8) Diabetes Current Visit: Yes Status: Acute Assessment and Plan: continue home medications - Time Spent with Patient Total time spent is greater than 50% in coordination of care (as documented) at patient's floor/unit and/or counseling patient: Internal Medicine: Result - Labs CBC & Chem 7: 04/13/18 04:55 04/13/18 04:55 Labs: Short CBC 04/13/18 Range/Units 04:55 WBC 14.3 H (4.3-11.1) K/mcL Hgb 11.5 L (12.9-16.9) g/dL Hct 34.9 L (37.5-50.1) % Plt Count 226 (140-400) K/mcL Neutrophils # 11.7 H (1.6-8.9) K/mcL BMP 04/13/18 04:55 Sodium 138 Potassium 3.3 L Chloride 107 Carbon Dioxide 23 BUN 13 Creatinine 0.75 Glucose 164 H Calcium 8.2 L - ABG Interpretation ABG results: PT/INR, D-dimer PT 14.0 Seconds (9.4-12.1) H 04/10/18 05:35 Consult Discharge Plan - Plan Referrals: Ammon Maradiaga DO [Primary Care Provider] - <Valerie Castillo - Last Filed: 04/13/18 17:38> Hospitalist Progress Note - Encounter Date of Encounter: 04/13/18 Time of Encounter: 17:34 - Exam Vitals: Temp Pulse Resp BP Pulse Ox 98.4 F 84 18 105/68 90 04/13/18 13:53 04/13/18 13:53 04/13/18 15:32 04/13/18 13:53 04/13/18 15:32 Exam: General: Patient is alert, no acute distress, oriented x 3 Respiratory: Decreased breath sounds at both bases. Mild expiratory wheezing Cardiovascular: Regular rate and rhythm. s1 and s2 normal No clicks, rubs, gallops, or murmurs. No pedal edema Abdomen: Abdomen is soft, right lower quadrant tenderness. JANES drain present. Bowel sounds are present Musculoskeletal: Spontaneously moving all extremities Skin: warm, dry, intact. Neuro: Alert oriented x 3 normal cranial nerves, no focal deficits - Assessment and Plan (1) Acute diverticulitis Current Visit: Yes Status: Acute Assessment and Plan: Continue management per surgery recommendations. Abscess fluid growing Proteus and Escherichia coli sensitive to Levaquin. WBC count at 14.3. We will continue to monitor for now. He has not had any further episodes of fevers. On TPN for nutrition. Moderate risk for complications. (2) COPD exacerbation Current Visit: Yes Status: Acute Assessment and Plan: Mild exacerbation. Continue to wean FiO2 as tolerated. Continue scheduled bronchodilators. (3) Hyperlipidemia Current Visit: Yes Status: Chronic Assessment and Plan: On Lipitor (4) Hypertension Current Visit: Yes Status: Chronic Assessment and Plan: Blood pressure remains well controlled. (5) Leukocytosis Current Visit: Yes Status: Acute (6) DVT prophylaxis Current Visit: Yes Status: Acute Assessment and Plan: On subcutaneous heparin - Time Spent with Patient Total time spent is greater than 50% in coordination of care (as documented) at patient's floor/unit and/or counseling patient: Internal Medicine: Result - Labs CBC & Chem 7: 04/13/18 04:55 04/13/18 04:55 Labs: Short CBC 04/13/18 Range/Units 04:55 WBC 14.3 H (4.3-11.1) K/mcL Hgb 11.5 L (12.9-16.9) g/dL Hct 34.9 L (37.5-50.1) % Plt Count 226 (140-400) K/mcL Neutrophils # 11.7 H (1.6-8.9) K/mcL BMP 04/13/18 04:55 Sodium 138 Potassium 3.3 L Chloride 107 Carbon Dioxide 23 BUN 13 Creatinine 0.75 Glucose 164 H Calcium 8.2 L - ABG Interpretation ABG results: PT/INR, D-dimer PT 14.0 Seconds (9.4-12.1) H 04/10/18 05:35 - Attending Attestation The history, physical exam, and medical decision making was performed by the medical student either while I was physically present and actively involved or I personally re-performed the exam and medical decision making. I have verified the accuracy of the medical student's documentation with regards to the history, physical exam findings, and medical decision making on 04/13/2018. Patient continues to improve slowly. He is tolerating clear liquid diet. Continues to have pain in the right lower quadrant of the abdomen although it is also improving overall. He is tolerating oral pain medication better. Will also has fentanyl patch on. No fevers reported overnight. Remains on 2 L nasal cannula. <Nahomi Noguera - Last Filed: 04/13/18 15:08> (2) Leukocytosis Qualifiers: Leukocytosis type: other Qualified Code(s): D72.828 - Other elevated white blood cell count (4) Hyperlipidemia Qualifiers: Hyperlipidemia type: unspecified Qualified Code(s): E78.5 - Hyperlipidemia, unspecified (5) Hypertension Qualifiers: Hypertension type: essential hypertension Qualified Code(s): I10 - Essential (primary) hypertension <Valerie Castillo - Last Filed: 04/13/18 17:38> (3) Hyperlipidemia Qualifiers: Hyperlipidemia type: unspecified Qualified Code(s): E78.5 - Hyperlipidemia, unspecified (4) Hypertension Qualifiers: Hypertension type: essential hypertension Qualified Code(s): I10 - Essential (primary) hypertension (5) Leukocytosis Qualifiers: Leukocytosis type: other Qualified Code(s): D72.828 - Other elevated white blood cell count
[2018-04-13] MEDS: Insulin LISPRO 300 UNITS/3 ML VIAL SQ SCH (16:47)
[2018-04-13] MEDS ORDERED: Clinimix E 5%-15% SOLUTION 2,000 ML with MVI, adult with vitamin K 10 ML IVC SCH (17:00)
--- NOTE | 2018-04-13 21:14 | General Surgery Progress Note ---
Date of Encounter: 04/13/18 Time of Encounter: 13:10 Subjective Narrative: General Surgery - this is a delayed notation Maximum temperature through the course of the day 99 1, more recently 100.1 (20:14 this evening) despite a low-grade fever, pulse 80, respirations 14, blood pressure 109/69. The patient appears to be improving, he describes decreased abdominal pain though it is still persistent to my exam suprapubically and right lower quadrant. The patient has greater complaints of abdominal pain when his is not at bedside Lungs: Clear no obvious pain on deep inspiration Abdomen: Tenderness noted as described suprapubic and right lower quadrant Bowel sounds are present; the patient has passed flatus. Laboratory show any increased leukocytosis of 14.3; hemoglobin 11.5, hematocrit 44.9. Neutrophils have increased 11.7. Electrolytes notable for persistent hypokalemia. Sodium 138, BUN 13, creatinine 0.75 Blood sugar 130 to 164; Accu-Cheks 111 119 Impression: Acute sigmoid diverticulitis with perforation and pericolic abscess- Hospital day #4 Patient appears to be slowly improving however the persistent white count and neutrophils are concerning Plan: Will evaluate with CT abdomen and pelvis in a.m. This has been discussed in detail with the patient and his . Continue IV antibiotics; continue TPN. Repeat labs in a.m. Objective Vital Signs - Last 8 Hours Temp Pulse Resp BP Pulse Ox 04/13/18 20:34 14 93 04/13/18 20:14 100.1 F H 80 14 109/69 94 04/13/18 15:32 18 90 04/13/18 13:53 98.4 F 84 13 105/68 92 Intake and Output 04/13/18 04/13/18 04/13/18 07:59 15:59 23:59 Intake Total 350 / 350 250 / 250 260 / 260 Output Total 355 / 355 200 / 200 0 / 0 Balance -5 / -5 50 / 50 260 / 260 Intake: IV Fluids 350 / 350 250 / 250 260 / 260 Intralipid 20% 250 ML @ 21 mls/ 250 / 250 hr IVPB DAILY@1700 [facility] Rx#: [id number] Levaquin Premix 750mg/150 mL 150 / 150 750 mg In 150 ml @ 100 mls/hr IVPB DAILY [facility] Rx#:[id number] Flagyl Premix 500 MG/100 ML 500 100 / 100 100 / 100 mg In 100 ml @ 100 mls/hr IVPB Q8HR [facility] Rx#:[id number] Oral 0 / 0 0 / 0 Output: Urine 350 / 350 0 / 0 Catheter 200 / 200 Wound Drainage 5 / 5 Left Buttock 5 / 5 Other: # Bowel Movements 0 Weight 67.4 kg Blood Glucose* 122 194 141 Patient Weight 04/13/18 23:59 Weight 67.4 kg - Labs 04/13/18 04:55 04/13/18 04:55 Diabetes panel 04/13/18 Range/Units 04:55 Sodium 138 (136-145) mEq/L Potassium 3.3 L (3.5-5.1) mEq/L Chloride 107 (98-107) mEq/L Carbon Dioxide 23 (23-29) mEq/L BUN 13 (8-23) mg/dL Creatinine 0.75 (0.70-1.30) mg/dL Glucose 164 H (70-105) mg/dL Calcium 8.2 L (8.6-10.3) mg/dL Calcium panel 04/13/18 Range/Units 04:55 Calcium 8.2 L (8.6-10.3) mg/dL Phosphorus 1.9 L (2.7-4.5) mg/dL Pituitary panel 04/13/18 Range/Units 04:55 Sodium 138 (136-145) mEq/L Potassium 3.3 L (3.5-5.1) mEq/L Chloride 107 (98-107) mEq/L Carbon Dioxide 23 (23-29) mEq/L BUN 13 (8-23) mg/dL Creatinine 0.75 (0.70-1.30) mg/dL Glucose 164 H (70-105) mg/dL Calcium 8.2 L (8.6-10.3) mg/dL Adrenal panel 04/13/18 Range/Units 04:55 Sodium 138 (136-145) mEq/L Potassium 3.3 L (3.5-5.1) mEq/L Chloride 107 (98-107) mEq/L Carbon Dioxide 23 (23-29) mEq/L BUN 13 (8-23) mg/dL Creatinine 0.75 (0.70-1.30) mg/dL Glucose 164 H (70-105) mg/dL Calcium 8.2 L (8.6-10.3) mg/dL Consult Discharge Plan - Plan Referrals: Ammon Maradiaga DO [Primary Care Provider] -
[2018-04-14] MEDS: Insulin LISPRO 300 UNITS/3 ML VIAL SQ SCH ×5 (00:09→21:13)
[2018-04-14] MEDS: MetroNIDAZOLE 500 MG/100 ML 500 MG/100 ML BAG IVPB SCH ×4 (00:09→23:21)
[2018-04-14] MEDS: *HR* Heparin 5,000 UNIT/ML VIAL SQ SCH ×3 (00:09→16:12)
[2018-04-14 04:22] LABS: Basophils # 0.1 K/mcL (0.0-0.2); Basophils % 0.4 %; Eosinophils # 0.2 K/mcL (0.0-0.6); Eosinophils % 1.8 %; Hematocrit 33.6 % (37.5-50.1); Hemoglobin 11.2 g/dL (12.9-16.9); Immature Granulocytes % 0.9 % (0-4); Lymphocytes # 1.3 K/mcL (0.6-4.6); Lymphocytes % 9.8 %; Mean Corpuscular HGB Conc 33.3 g/dL (31.6-35.5); Mean Corpuscular Hemoglobin 30.8 pg (28.0-33.3); Mean Corpuscular Volume 92.3 fL (83.0-100.0); Mean Platelet Volume 10.1 fL (9.4-12.4); Monocytes # 1.2 K/mcL (0.0-1.3); Monocytes % 8.9 %; Platelet Count 254 K/mcL (140-400); Red Blood Count 3.64 M/mcL (4.19-5.50); Red Cell Distribution Width 13.9 % (11.5-14.5); Segmented Neutrophils % 78.2 %
[2018-04-14 04:44] LABS: BUN/Creatinine Ratio 21 (6-26); Blood Urea Nitrogen 14 mg/dL (8-23); Calcium 8.1 mg/dL (8.6-10.3); Carbon Dioxide 24 mEq/L (23-29); Chloride 107 mEq/L (98-107); Glucose 147 mg/dL (70-105); Magnesium 1.9 mg/dL (1.6-2.6); Osmolality,Calculated 289 (280-300); Phosphorous 2.4 mg/dL (2.7-4.5); Potassium 3.6 mEq/L (3.5-5.1); Sodium 138 mEq/L (136-145); eGFR For Non-African Americans > 60 (> 60)
[2018-04-14 05:29] LABS: Neutrophils # 10.6 K/mcL (1.6-8.9)
[2018-04-14] MEDS: *HR* OxyCODONE Immed Rel 5 MG TABLET PO PRN ×4 (05:30→21:13)
[2018-04-14] MEDS: Tiotropium 18 MCG inhalation IH SCH (08:02)
[2018-04-14] MEDS: Budesonide/Formoterol 160/4.5 1 PUFF INH IH SCH ×2 (08:03→19:42)
[2018-04-14] MEDS: Levofloxacin 750 MG/150 ML 750 MG/150 ML BAG IVPB SCH (08:22)
[2018-04-14] MEDS: Roflumilast [Daliresp] 500 MCG PO SCH (08:24)
--- NOTE | 2018-04-14 11:37 | Internal Med Progress Note ---
<ElpidiorebaNahomi garcia N - Last Filed: 04/14/18 12:06> Hospitalist Progress Note - Encounter Date of Encounter: 04/14/18 Time of Encounter: 11:34 - Subjective Interval History: Cipriano Salinas is a 67 year old male with a PMHx of COPD, HTN, HLD who was found to have sigmoid diverticulitis w/ a 6 cm pericolonic abscess on CT scan. He is s/p percutaneous drainage of sigmoid abscess POD 4. Pt says his abdominal pain is the same as yesterday. Pt denies N/V, diarrhea, fevers, chills, or having a BM. Pt did pass gas yesterday. He does admit to a new symptom of a productive cough with green sputum and increasing SOB. - Exam Vitals: Temp Pulse Resp BP Pulse Ox 98.2 F 89 24 113/67 91 04/14/18 10:23 04/14/18 10:23 04/14/18 10:54 04/14/18 10:23 04/14/18 10:54 Exam: General: Patient is alert, no acute distress Respiratory: Decreased breath sounds at both bases. Mild expiratory wheezing Cardiovascular: Regular rate and rhythm. s1 and s2 normal No murmurs. No pedal edema Abdomen: Abdomen is soft, TTP in RLQ. JANES drain present. Bowel sounds are present Extremities: No lower extremity edema, cyanosis - Assessment and Plan (1) Acute diverticulitis Current Visit: Yes Status: Acute Assessment and Plan: Acute diverticulitis with sigmoid abscess -s/p percutaneous drainage of sigmoid abscess POD [address] with [address] drain in place -pain is the same as yesterday -fluid from abscess grew E. coli and Proteus mirabilis -leukocytosis improved from yesterday (13.6 today and 14.3 yesterday) -CT abd/pelvis scan this morning showed improved sigmoid abscess when compared to CT scan before the drain was placed -does not meet SIRS criteria Plan: -continue Levaquin, day 3 -continue Flagyl, day 5 -continue pain medication regimen: Fentanyl patch and 10 mg Oxycodone -surgery following and appreciate recs -waiting formal read on CT scan from today -continue TPN -per surgery, pt full liquid diet -potassium 3.6 and phosphorus 2.4 today, will consult senior pastor if these are being replaced with TPN (2) Leukocytosis Current Visit: Yes Status: Acute Assessment and Plan: WBC 13.6 today -yesterday 14.3 -Tmax last night 99.15 F oral -pt complaining of productive cough with green sputum -CT scan of abscess from today seems improved since before the drain was inserted, awaiting formal read Plan -surgery consulted and appreciate recs -chest x-ray ordered because of new cough and unsuccessful attempt to wean oxygen yesterday with worsening SOB -sputum cultures pending (3) COPD exacerbation Current Visit: Yes Status: Acute Assessment and Plan: -continue home meds -currently on 3 L NC -try to wean oxygen -pt appears at baseline (4) Hyperlipidemia Current Visit: Yes Status: Chronic Assessment and Plan: -continue home lipitor (5) Hypertension Current Visit: Yes Status: Chronic Assessment and Plan: -holding home HTN medications (6) DVT prophylaxis Current Visit: Yes Status: Acute Assessment and Plan: SQ heparin (7) Urinary retention Current Visit: Yes Status: Acute Assessment and Plan: continue home Flomax (8) Diabetes Current Visit: Yes Status: Acute Assessment and Plan: continue home meds DVT Prophylaxis: subq heparin - Time Spent with Patient Total time spent is greater than 50% in coordination of care (as documented) at patient's floor/unit and/or counseling patient: Internal Medicine: Result - Labs CBC & Chem 7: 04/14/18 04:00 04/14/18 04:00 Labs: Short CBC 04/14/18 Range/Units 04:00 WBC 13.6 H (4.3-11.1) K/mcL Hgb 11.2 L (12.9-16.9) g/dL Hct 33.6 L (37.5-50.1) % Plt Count 254 (140-400) K/mcL Neutrophils # 10.6 H (1.6-8.9) K/mcL BMP 04/14/18 04:00 Sodium 138 Potassium 3.6 Chloride 107 Carbon Dioxide 24 BUN 14 Creatinine 0.67 L Glucose 147 H Calcium 8.1 L - ABG Interpretation ABG results: PT/INR, D-dimer PT 14.0 Seconds (9.4-12.1) H 04/10/18 05:35 Consult Discharge Plan - Plan Referrals: Ammon Maradiaga DO [Primary Care Provider] - <Jeremy Kimble - Last Filed: 04/14/18 16:13> Hospitalist Progress Note - Encounter Date of Encounter: 04/14/18 - Subjective Interval History: I have re-performed and reviewed the history documented by the medical student, and I confirm its accuracy except as noted below - Exam Vitals: Temp Pulse Resp BP Pulse Ox 98.3 F 80 13 107/69 94 04/14/18 13:47 04/14/18 13:47 04/14/18 13:47 04/14/18 13:47 04/14/18 13:47 Exam: General: Patient is alert, no acute distress, oriented x 3 Respiratory: Good respiratory effort. Prolonged expiratory phase. Mild bilateral wheezing. Cardiovascular: Regular rate and rhythm. s1 and s2 normal No clicks, rubs, gallops, or murmurs. No pedal edema Abdomen: Abdomen is soft, tender in the right lower quadrant. Bowel sounds are present and intra-abdominal drain present. Musculoskeletal: Spontaneously moving all extremities Skin: warm, dry, intact. Neuro: normal speech, no focal deficits - Assessment and Plan (1) Acute diverticulitis Current Visit: Yes Status: Acute (2) COPD exacerbation Current Visit: Yes Status: Acute Assessment and Plan: CXR 04/14/18 is neg for acute process, possible emphysema. (3) Diabetes Current Visit: Yes Status: Acute (4) Hyperlipidemia Current Visit: Yes Status: Chronic (5) Hypertension Current Visit: Yes Status: Chronic (6) Leukocytosis Current Visit: Yes Status: Acute Assessment and Plan: CXR negative for acute process, see complete plan above. (7) Urinary retention Current Visit: Yes Status: Acute (8) DVT prophylaxis Current Visit: Yes Status: Acute - Time Spent with Patient Total time spent is greater than 50% in coordination of care (as documented) at patient's floor/unit and/or counseling patient: less than 15 minutes Plan of Care Discussed with: family Internal Medicine: Result - Labs CBC & Chem 7: 04/14/18 04:00 04/14/18 04:00 Labs: Short CBC 04/14/18 Range/Units 04:00 WBC 13.6 H (4.3-11.1) K/mcL Hgb 11.2 L (12.9-16.9) g/dL Hct 33.6 L (37.5-50.1) % Plt Count 254 (140-400) K/mcL Neutrophils # 10.6 H (1.6-8.9) K/mcL BMP 04/14/18 04:00 Sodium 138 Potassium 3.6 Chloride 107 Carbon Dioxide 24 BUN 14 Creatinine 0.67 L Glucose 147 H Calcium 8.1 L - ABG Interpretation ABG results: PT/INR, D-dimer PT 14.0 Seconds (9.4-12.1) H 04/10/18 05:35 - Impressions Impressions Abdomen/Pelvis CT 04/14/18 09:45 IMPRESSION: 1. Again noted are findings related to acute perforated sigmoid diverticulitis with interval placement of a transgluteal percutaneous drainage catheter into the pelvic abscess which has decreased in size. 2. Increasing mesenteric edema and ascites with more focal areas of the loculated fluid versus fluid collections in the right pelvis and right lower quadrant the largest of these measuring up to 6.2 x 2.4 cm in the right paracolic gutter and 3.6 x 2.7 cm in the right upper pelvis. No gas is noted within these collections. 3. There is a gas-filled sinus tract versus gas predominant collection just above the level of the bladder arising from the mid sigmoid colon measuring approximately 3.4 x 1.3 cm. No other extraluminal gas is identified. 4. Nonobstructing left renal calculus. 5. Gallbladder sludge versus stones. 6. Anasarca. D/ / 04/14/2018 12:24:52 Jaymie Ospina MD / Annabelle Odell Interpreting Provider: Jaymie Ospina MD <Valerie Castillo - Last Filed: 04/14/18 17:12> Hospitalist Progress Note - Encounter Date of Encounter: 04/14/18 Time of Encounter: 09:25 - Exam Vitals: Temp Pulse Resp BP Pulse Ox 98.3 F 80 15 107/69 95 04/14/18 13:47 04/14/18 13:47 04/14/18 16:13 04/14/18 13:47 04/14/18 16:13 - Assessment and Plan (1) Acute diverticulitis Current Visit: Yes Status: Acute (2) COPD exacerbation Current Visit: Yes Status: Acute (3) Hyperlipidemia Current Visit: Yes Status: Chronic (4) Hypertension Current Visit: Yes Status: Chronic (5) Leukocytosis Current Visit: Yes Status: Acute (6) DVT prophylaxis Current Visit: Yes Status: Acute - Time Spent with Patient Total time spent is greater than 50% in coordination of care (as documented) at patient's floor/unit and/or counseling patient: Internal Medicine: Result - Labs CBC & Chem 7: 04/14/18 04:00 04/14/18 04:00 Labs: Short CBC 04/14/18 Range/Units 04:00 WBC 13.6 H (4.3-11.1) K/mcL Hgb 11.2 L (12.9-16.9) g/dL Hct 33.6 L (37.5-50.1) % Plt Count 254 (140-400) K/mcL Neutrophils # 10.6 H (1.6-8.9) K/mcL BMP 04/14/18 04:00 Sodium 138 Potassium 3.6 Chloride 107 Carbon Dioxide 24 BUN 14 Creatinine 0.67 L Glucose 147 H Calcium 8.1 L - ABG Interpretation ABG results: PT/INR, D-dimer PT 14.0 Seconds (9.4-12.1) H 04/10/18 05:35 - Impressions Impressions Chest X-Ray 04/14/18 08:44 IMPRESSION: No radiographic evidence of acute cardiopulmonary disease. Pulmonary sequela typical of that seen with smoking, including emphysema. Correlate with clinical history. D/ / Caden Jennings / Caden Jennings Interpreting Provider: Caden Jennings Abdomen/Pelvis CT 04/14/18 09:45 IMPRESSION: 1. Again noted are findings related to acute perforated sigmoid diverticulitis with interval placement of a transgluteal percutaneous drainage catheter into the pelvic abscess which has decreased in size. 2. Increasing mesenteric edema and ascites with more focal areas of the loculated fluid versus fluid collections in the right pelvis and right lower quadrant the largest of these measuring up to 6.2 x 2.4 cm in the right paracolic gutter and 3.6 x 2.7 cm in the right upper pelvis. No gas is noted within these collections. 3. There is a gas-filled sinus tract versus gas predominant collection just above the level of the bladder arising from the mid sigmoid colon measuring approximately 3.4 x 1.3 cm. No other extraluminal gas is identified. 4. Nonobstructing left renal calculus. 5. Gallbladder sludge versus stones. 6. Anasarca. D/ / 04/14/2018 12:24:52 Jaymie Ospina MD / Annabelle Odell Interpreting Provider: Jaymie Ospina MD - Attending Attestation I saw evaluated and examined this patient and my medical decision-making was reviewed with the Resident Physician, Jeremy Kimble. I agree with the documented findings, disposition and treatment plan as described except to any changes set forth below. We independently had [id number] contact with the patient. Patient complains of cough with greenish colored sputum. He is also had slightly worsening pain in his abdomen. No new episodes of nausea or vomiting. He is tolerating clear liquid diet and passing flatus. Remains on TPN. On exam, patient does have tenderness in his right and left lower quadrants. Heart sounds are normal. Patient does have bilateral end expiratory wheezing. And decreased air entry bilaterally. No pedal edema. Acute diverticulitis with abscess: Surgery following. Continue IV antibiotics. Leukocyte count is improving. However CT scan of the abdomen and pelvis showed new pockets of fluid collection in the right pelvis and right lower quadrant. Will follow up with surgery recommendations. Continue current pain control regimen. Acute bronchitis/COPD: Patient having greenish colored sputum. Chest x-ray does not show any acute infiltrate. Patient is on Levaquin. Continue bronchodilators. Nutrition: Continue TPN. We will replete electrolytes. Diabetes: Patient started on subcutaneous insulin. Sugars are fairly controlled. DVT prophylaxis with subcutaneous heparin ___ <Nahomi Noguera Jonathan - Last Filed: 04/14/18 12:06> (2) Leukocytosis Qualifiers: Leukocytosis type: other Qualified Code(s): D72.828 - Other elevated white blood cell count (4) Hyperlipidemia Qualifiers: Hyperlipidemia type: unspecified Qualified Code(s): E78.5 - Hyperlipidemia, unspecified (5) Hypertension Qualifiers: Hypertension type: essential hypertension Qualified Code(s): I10 - Essential (primary) hypertension <Jeremy Kimble - Last Filed: 04/14/18 16:13> (4) Hyperlipidemia Qualifiers: Hyperlipidemia type: unspecified Qualified Code(s): E78.5 - Hyperlipidemia, unspecified (5) Hypertension Qualifiers: Hypertension type: essential hypertension Qualified Code(s): I10 - Essential (primary) hypertension (6) Leukocytosis Qualifiers: Leukocytosis type: other Qualified Code(s): D72.828 - Other elevated white blood cell count <Valerie Castillo - Last Filed: 04/14/18 17:12> (3) Hyperlipidemia Qualifiers: Hyperlipidemia type: unspecified Qualified Code(s): E78.5 - Hyperlipidemia, unspecified (4) Hypertension Qualifiers: Hypertension type: essential hypertension Qualified Code(s): I10 - Essential (primary) hypertension (5) Leukocytosis Qualifiers: Leukocytosis type: other Qualified Code(s): D72.828 - Other elevated white blood cell count
[2018-04-14] MEDS ORDERED: Clinimix E 5%-15% SOLUTION 2,000 ML with MVI, adult with vitamin K 10 ML IVC SCH (17:00)
[2018-04-14] MEDS ORDERED: Albuterol 2.5 MG/3 ML NEBULIZER IH STA (18:49)
[2018-04-14] MEDS ORDERED: Furosemide 40 MG/4 ML VIAL IVP STA (18:49)
--- NOTE | 2018-04-14 19:10 | General Surgery Progress Note ---
Date of Encounter: 04/14/18 Time of Encounter: 18:52 Subjective Patient reports: still having pain Narrative: General Surgery - Hospital Day #5 - this is a delayed note reflecting patient examination this morning and again this evening Patient voicing no new complaints; still has abdominal tenderness suprapubic midline and right lower quadrant. Patient has remained afebrile through the course of the day; maximum temperature early this morning 99.5; Pulse 73-89; respirations 14-16; Blood pressure 104/64 to 107/69. SPO2 on 2-3 L per nasal cannula 94-95% This evening the patient had audible bilateral wheezing and a productive cough. Cardiac: Regular rate, no appreciable murmurs Abdomen: Soft with active bowel sounds; persistent suprapubic and right lower quadrant tenderness. Discernible masses or rebound. CT abdomen and pelvis was personally reviewed with [facility] - Findings include: Persistent changes related to acute sigmoid diverticulitis; trans-gluteal catheter with significant reduction in the pelvic abscess abscess, however, a few new fluid collections/loculated fluid is noted extending cephalad and to the right with either a gas-filled sinus tract versus gas predominant collection just above the level of the bladder which appears to be arising from the mid sigmoid colon. These findings correspond to the persistent suprapubic and right lower quadrant abdominal pain evident on examination. Cultures obtained at the time of the trans-gluteal catheter placement - Escherichia coli and Proteus mirabilis; sensitivities still pending Laboratories: White count 13.6, hemoglobin stable approximate 11.2 with hematocrit 33.6. Neutrophils remain elevated 10.6 Electrolytes notable for correction of hypokalemia at 3.6, BUN 14, creatinine 0.67. Phosphorus slightly improved but still low at 2.4 Accu-Cheks 141-192 Impression: Hospital day #5; acute sigmoid diverticulitis with perforation and pericolic abscess. Effective percutaneous transgluteal drainage of the deep pelvic abscess, however, the patient continues to have suprapubic and right lower quadrant tenderness with radiologic evidence of several new fluid collection/loculated fluid. I have discussed these findings and persistent clinical symptoms with the patient and his , who was in attendance. I have recommended surgical intervention, which is likely to entail a Doug procedure (sigmoid colectomy with end colostomy). The patient's nutritional status is improved as is his overall fitness to undergo such procedure. Risks of surgery include hemorrhage, infection, recurrent or persistent intraperitoneal/pelvic abscess; injury to adjacent structures such as bladder, ureters, and adjacent bowel. The likelihood of an end colostomy is quite high but I will examine the patient for potential primary resection. The patient and his of expressed understanding. Surgical consent has been obtained. Plan: Exploratory celiotomy, Doug procedure in a.m. Hold heparin in preparation for surgery Surgical consent has been signed Nothing by mouth except medications after 12 midnight Continue to correct low phosphate Albuterol aerosols and Lasix now for the patient's wheezing Objective Vital Signs - Last 8 Hours Temp Pulse Resp BP Pulse Ox 04/14/18 16:13 15 95 04/14/18 13:47 98.3 F 80 13 107/69 94 04/14/18 10:54 24 91 Intake and Output 04/14/18 04/14/18 04/14/18 07:59 15:59 23:59 Intake Total 350 / 350 490 / 490 340 / 340 Output Total 450 / 450 450 / 450 400 / 400 Balance -100 / -100 40 / 40 -60 / -60 Intake: IV Fluids 350 / 350 250 / 250 100 / 100 Intralipid 20% 250 ML @ 21 mls/ 250 / 250 hr IVPB DAILY@1700 [facility] Rx#: [id number] Levaquin Premix 750mg/150 mL 150 / 150 750 mg In 150 ml @ 100 mls/hr IVPB DAILY [facility] Rx#:[id number] Flagyl Premix 500 MG/100 ML 500 100 / 100 100 / 100 100 / 100 mg In 100 ml @ 100 mls/hr IVPB Q8HR [facility] Rx#:[id number] Oral 0 / 0 240 / 240 240 / 240 Output: Catheter 450 / 450 450 / 450 400 / 400 Wound Drainage 0 / 0 0 / 0 0 / 0 Left Buttock 0 / 0 0 / 0 0 / 0 Other: Meal Lunch Clears Dinner Clear Percent of Meal Consumed 0% # Bowel Movements 0 0 Weight 68 kg Blood Glucose* 192 146 153 Patient Weight 04/14/18 23:59 Weight 68 kg - Labs 04/14/18 04:00 04/14/18 04:00 Diabetes panel 04/14/18 Range/Units 04:00 Sodium 138 (136-145) mEq/L Potassium 3.6 (3.5-5.1) mEq/L Chloride 107 (98-107) mEq/L Carbon Dioxide 24 (23-29) mEq/L BUN 14 (8-23) mg/dL Creatinine 0.67 L (0.70-1.30) mg/dL Glucose 147 H (70-105) mg/dL Calcium 8.1 L (8.6-10.3) mg/dL Calcium panel 04/14/18 Range/Units 04:00 Calcium 8.1 L (8.6-10.3) mg/dL Phosphorus 2.4 L (2.7-4.5) mg/dL Pituitary panel 04/14/18 Range/Units 04:00 Sodium 138 (136-145) mEq/L Potassium 3.6 (3.5-5.1) mEq/L Chloride 107 (98-107) mEq/L Carbon Dioxide 24 (23-29) mEq/L BUN 14 (8-23) mg/dL Creatinine 0.67 L (0.70-1.30) mg/dL Glucose 147 H (70-105) mg/dL Calcium 8.1 L (8.6-10.3) mg/dL Adrenal panel 04/14/18 Range/Units 04:00 Sodium 138 (136-145) mEq/L Potassium 3.6 (3.5-5.1) mEq/L Chloride 107 (98-107) mEq/L Carbon Dioxide 24 (23-29) mEq/L BUN 14 (8-23) mg/dL Creatinine 0.67 L (0.70-1.30) mg/dL Glucose 147 H (70-105) mg/dL Calcium 8.1 L (8.6-10.3) mg/dL Consult Discharge Plan - Plan Referrals: Ammon Maradiaga DO [Primary Care Provider] -
[2018-04-14] MEDS ORDERED: Potassium Phosphate 44 MEQ in 0.9 % Sodium Chloride 250 ML IVPB STA (19:12)
[2018-04-14] MEDS: Albuterol 2.5 MG/3 ML NEBULIZER IH SCH ×2 (19:42→20:00)
[2018-04-15] MEDS: Insulin LISPRO 300 UNITS/3 ML VIAL SQ SCH ×6 (01:18→23:33)
[2018-04-15] MEDS: Albuterol 2.5 MG/3 ML NEBULIZER IH SCH ×5 (04:56→20:08)
[2018-04-15] MEDS: *HR* OxyCODONE Immed Rel 5 MG TABLET PO PRN (05:14)
[2018-04-15 05:39] LABS: Basophils # 0.1 K/mcL (0.0-0.2); Basophils % 0.5 %; Eosinophils # 0.3 K/mcL (0.0-0.6); Eosinophils % 1.9 %; Hematocrit 40.2 % (37.5-50.1); Hemoglobin 13.3 g/dL (12.9-16.9); Immature Granulocytes % 1.9 % (0-4); Lymphocytes # 2.3 K/mcL (0.6-4.6); Lymphocytes % 16.5 %; Mean Corpuscular HGB Conc 33.1 g/dL (31.6-35.5); Mean Corpuscular Hemoglobin 30.4 pg (28.0-33.3); Monocytes # 1.2 K/mcL (0.0-1.3); Monocytes % 8.7 %; Neutrophils # 9.8 K/mcL (1.6-8.9); Platelet Count 307 K/mcL (140-400); Red Blood Count 4.37 M/mcL (4.19-5.50); Segmented Neutrophils % 70.5 %
[2018-04-15 05:57] LABS: BUN/Creatinine Ratio 22 (6-26); Blood Urea Nitrogen 16 mg/dL (8-23); Calcium 8.9 mg/dL (8.6-10.3); Carbon Dioxide 29 mEq/L (23-29); Chloride 102 mEq/L (98-107); Glucose 160 mg/dL (70-105); Osmolality,Calculated 291 (280-300); Phosphorous 2.9 mg/dL (2.7-4.5); Potassium 3.6 mEq/L (3.5-5.1); Sodium 138 mEq/L (136-145); eGFR For Non-African Americans > 60 (> 60)
--- NOTE | 2018-04-15 06:21 | Anesthesia Evaluation PreOp ---
Date of Encounter: 04/15/18 Time of Encounter: 07:00 - Past History Planned Operation: Exploratory Celiotomy Cardiac History: HTN, Hyperlipidemia Pulmonary History: Former smoker, COPD [employer]GER History: Denies Any Significant HX Other Medical History: Denies Any Significant HX Anesthesia History: No Prior Anesthetic Complications Alcohol Use: rarely Drug use: none Medications and Allergies Albuterol Sulfate [Proair Hfa] 2 puff IH Q4H PRN 12/26/15 [History] Budesonide/Formoterol 160/4.5 [Symbicort 160/4.5] 2 puff IH BIDR 12/26/15 [History] Roflumilast [Daliresp] 500 mcg PO DAILY 12/26/15 [History] hydroCHLOROthiazide [Hydrochlorothiazide] 25 mg PO DAILY 10/24/16 [History] Vit A/C/E AC/Znox/Cupric Oxide [Eye Vitamin-Minerals Tablet] 1 tab PO DAILY 07/25/17 [History] levoFLOXacin [Levaquin] 500 mg PO DAILY #20 tablet 04/09/18 [Rx] Acetylcysteine [R-Yayufl-c-Cysteine] 1,200 mg PO DAILY 04/10/18 [History] Atorvastatin [Lipitor] 40 mg PO HS 04/10/18 [History] Fenofibrate Nanocrystallized [Triglide] 160 mg PO DAILY 04/10/18 [History] Tiotropium [Spiriva] 1 puff PO DAILY PRN 04/10/18 [History] Vit C/E/Zn/Coppr/Lutein/Zeaxan [Preservision Areds 2 Softgel] 1 cap PO DAILY 04/10/18 [History] Allergy/AdvReac Type Severity Reaction Status Date / Time Penicillins Allergy Hives Verified 04/10/18 14:27 Sulfa (Sulfonamide Allergy Hives Verified 04/10/18 14:27 Antibiotics) - Meds/Allergy Pre-op Review Medications Reviewed: Yes Allergies Reviewed: Yes Beta Blockers on Current Med List: No Anesthesia Results - Labs 04/15/18 05:26 04/15/18 05:26 Laboratory Tests 04/10/18 04/15/18 04/15/18 05:35 05:26 05:26 WBC 14.0 H Hgb 13.3 D Hct 40.2 Plt Count 307 PT 14.0 H INR 1.2 Sodium 138 Potassium 3.6 BUN 16 Creatinine 0.72 - Imaging EKG: report reviewed (SR) Additional studies: ECHO 2016 EF 70%, no pulm htn Anesthesia Exam Vital Signs/O2 Sat/Glucose, Most Current Temp Pulse Resp BP Pulse Ox 04/15/18 04:56 16 94 04/15/18 04:33 99.0 F 78 13 111/70 93 Height: 5'6 Weight: 147 lbs NPO (# of Hours): MN Pain Scale: 0 - HEENT Pupil (Motor): Pupils equal, EOMI Mallampati: II Teeth: Normal Oral Opening: Greater than 3 - [employer]GER LOC: Oriented [employer]GER Motor: Normal RUE, Normal LUE, Normal RLE, Normal LLE, Normal Face [employer]GER Sensory: Normal: RUE, LUE, RLE, LLE, Face - Cardiac Rhythm: Regular Murmur: None JVD: No Carotid Bruit: No - Pulmonary Breath Sounds: bilateral Clear Respiratory Effort: Symmetrical Anesthesia Assess/Plan ASA Score: 3 (HTN COPD) Level of consciousness: Cooperative Anesthetic Plan: General Monitoring Plan: Standard Monitors Recovery Plan: PACU (Discussed GA, agrees to proceed)
[2018-04-15] MEDS ORDERED: *HR* Midazolam HCl 2 MG/2 ML VIAL ONE (06:45)
[2018-04-15] MEDS ORDERED: *HR* FentaNYL (PF) 100 MCG/2 ML VIAL ONE (06:45)
[2018-04-15] MEDS ORDERED: *HR* Propofol 200 MG/20 ML VIAL IVP ONE (06:45)
[2018-04-15] MEDS ORDERED: *HR* HYDROmorphone (PF) 1 MG/ML SYRINGE IVP STA (06:49)
[2018-04-15] MEDS ORDERED: *HR* Succinylcholine 200 MG/10 ML VIAL IVP ONE (06:51)
[2018-04-15] MEDS ORDERED: Lidocaine -MPF 4% 5 ML AMPUL ONE (06:51)
[2018-04-15] MEDS ORDERED: Lidocaine -MPF 2% 2 ML VIAL ONE (06:51)
[2018-04-15] MEDS ORDERED: *HR* Rocuronium Bromide 50 MG/5 ML VIAL ONE ×3 (06:51→10:36)
[2018-04-15] MEDS ORDERED: Ondansetron 4 MG/2 ML VIAL ONE (06:51)
[2018-04-15] MEDS ORDERED: Bupivacaine/EPI 1:200k 0.25%PF 30 ML VIAL ONE (06:55)
[2018-04-15] MEDS ORDERED: *HR* OxyCODONE Immed Rel 5 MG TABLET PO PRN (07:09)
[2018-04-15] MEDS ORDERED: *HR* Promethazine 25 MG/ML VIAL IVP PRN (07:09)
[2018-04-15] MEDS ORDERED: *HR* HYDROmorphone (PF) 1 MG/ML SYRINGE IVP PRN (07:09)
[2018-04-15] MEDS ORDERED: Acetaminophen IV 1,000 MG/100 ML INFUS..BTL ONE (07:45)
[2018-04-15] MEDS: MetroNIDAZOLE 500 MG/100 ML 500 MG/100 ML BAG IVPB SCH ×3 (08:00→23:34)
[2018-04-15] MEDS ORDERED: EPHEDrine 50 MG/ML VIAL ONE (08:05)
[2018-04-15] MEDS: Tiotropium 18 MCG inhalation IH SCH (09:21)
[2018-04-15] MEDS: Budesonide/Formoterol 160/4.5 1 PUFF INH IH SCH ×2 (09:21→20:09)
[2018-04-15] MEDS ORDERED: Dexamethasone 4 MG/ML VIAL ONE (09:26)
[2018-04-15] MEDS ORDERED: SUGAMMADEX SODIUM 500 MG/5 ML VIAL IV ONE (10:09)
[2018-04-15] MEDS ORDERED: *HR* HYDROmorphone (PF) 1 MG/ML SYRINGE ONE (11:16)
[2018-04-15] MEDS ORDERED: Ketorolac 30 MG/ML VIAL ONE (11:41)
[2018-04-15] MEDS ORDERED: Insulin Regular, Human 100 UNIT/ML ONE (12:11)
--- NOTE | 2018-04-15 12:32 | Operative Note ---
Date of procedure: 04/15/18 Pre-op diagnosis: Acute perforated sigmoid diverticulitis with pericolic abscess Post-op diagnosis: same Procedure: Exploratory celiotomy, primary resection of the sigmoid colon with stapled colocolonic anastomosis; intraoperative rigid sigmoidoscopy; incidental appendectomy Complications: None apparent Anesthesia: GETA Local Anesthetics: 0.25% Sensorcaine HCL with Epinephrine 1:200,000 SubQ (cc) (30 mL) Surgeon: Peter Valera Was there an assistant women's tennis coach present: No Wildlife Removal Specialist Other: DARIO Gillis Estimated blood loss (cc): 200 IV fluids (cc): 4,900 (250 mL 5% albumin) Specimen: Sigmoid colon w/anastomotic rings(proxring marked with suture); appendix Condition: stable Disposition: PACU Procedure in Detail: The patient was brought to the operating room where he was placed supine on the procedure table. The patient was appropriately identified as to person and procedure. The accuracy of this information was confirmed by the patient and p rocedure team. The patient was then intubated and anesthetized under the supervision of Dr. Speedy Wray. The abdomen was prepped and draped in usual sterile fashion. An OG tube was passed by anesthesia. A Willingham catheter was already in place. A midline incision was made with a #10 scalpel extending from cephalad to the umbilicus to the symphysis pubis. The incision was extended to the fascia. Bleeding points were controlled with electrocautery. The fascia was divided midline. The peritoneal cavity was entered atraumatically. Retraction and visualization was facilitated by the use of a self-retaining Omni tract retractor. The small bowel was examined from the ligament of Treitz to the ileocecal valve. There were inflammatory changes, with the remnants of an interloop abscess essentially distal jejunum/proximal ileum. This interloop abscess was debrided. The remainder of the small bowel appeared normal. The appendix was visualized and appeared normal. Incidental appendectomy was completed by transecting the appendix at its junction with the cecum using an Ethicon TX 60 mm stapler and dividing the mesial appendix with the Ethicon Enseal dissector. The pelvic abscess which had been apparent on admission was effectively drained by the percutaneous, transgluteal drain placed by [facility]. This drain had been removed prior to initiation of the exploratory celiotomy. Sigmoid demonstrated markedly thickening and cystoscopy with the clinical diagnosis but no additional abscesses or vandana pus was encountered. It was evident that the previous 6 days of IV antibiotics have been effective at reducing the acute inflammatory changes within the pelvis and abdomen. Based on these findings, a primary resection of the sigmoid with stapled colocolonic anastomosis was considered possible. The patient was repositioned to facilitate this primary resection. The small bowel was retracted cephalad. The sigmoid colon was mobilized by incising the lateral peritoneal reflection. The dissection extended into the pelvis mobilizing the distal rectum/rectosigmoid. The colon distal to the acute inflammatory changes, was skeletonized and transected using an Ethicon TX 60 mm stapler. The mesentery was divided with the aid of the Ethicon Enseal dissector. The left colic vessels were separately identified, clamped, and suture ligated. A segment of the distal descending colon relatively free of diverticular disease was identified, skeletonized, and transected after placing a pursestring device. The divided sigmoid was removed from the field. The descending colon was measured to 29 mm using EEA sounds. A 29 mm ECS EEA stapler was selected. The anvil was placed in the descending colon. The pursestring was secured. It was necessary to extend the lateral peritoneal dissection cephalad and mobilized the splenic flexure to facilitate sufficient mobilization of the descending colon to reach the pelvis with no tension. Once this was accomplished, the abdomen and pelvis were irrigated with sterile saline. Hemostasis was adequate. The surgeon then proceeded to the perineum to complete colocolonic stapled anastomosis. The 29 mm EEA sound was passed rectally to the staple line. This was followed by the EEA stapler. The spike was deployed through the staple line allowing the anvil to be attached. The stapled anastomosis was completed. 2 intact rings were removed. The proximal anastomotic ring was marked with a silk suture. Rigid sigmoidoscopy was then completed. The anastomosis appeared to be intact, however, on insufflation of air a stream of bubbles was evident in the saline placed within the pelvis. The colonic defect was identified on the descending colon side of the anastomosis. The anastomosis was reinforced with interrupted 3-0 silk along with suture ligature of the colonic defect. On repeat insufflation of the colon no further leaks were identified. The rigid sigmoidoscope was extracted. The surgeon was regowned and gloved. The abdomen and pelvis were again irrigated with sterile saline. Hemostasis was adequate. Closure was then initiated. The peritoneum was closed with running interlocking 0 Vicryl. The fascia was reapproximated with interrupted [id number] 0 Vicryl. The fascia was infiltrated with several milliliters of 0.25% bupivacaine with 1-200,000 units epinephrine. The skin edges were also infiltrated with the bupivacaine with epinephrine solution. The subcutaneous tissue was approximated with running 3-0 Vicryl. The skin edges were approximated with eliane. A dry sterile dressing was applied. The patient was taken to recovery in stable condition. Needle, sponge, and instrument counts were correct at the close of the case. The sigmoid colon was opened on the back table before submitting the specimen tube pathology. The sigmoid and anastomotic rings were placed in formalin. The appendix was sent as a separate specimen.
[2018-04-15] MEDS ORDERED: D5% in Water 1,000 ML IVC PRN (12:36)
[2018-04-15] MEDS ORDERED: Dextrose Gel 15 GM/37.5 ML TUBE PO PRN (12:36)
[2018-04-15] MEDS ORDERED: D10% in Water 500 ML IVC PRN (12:36)
[2018-04-15] MEDS ORDERED: Naloxone 0.4 MG/ML INJ IVP PRN (12:36)
[2018-04-15] MEDS ORDERED: *HR* Dextrose 50 % in Water (Syg) 50 ML SYRINGE IVP PRN (12:36)
--- NOTE | 2018-04-15 13:20 | Internal Med Progress Note ---
Addendum entered and electronically signed by Bernadette De La Torre 04/26/18 10:09: Reviewed and signed -04/26/18 Original Note: <Bernadette De La Torre - Last Filed: 04/15/18 13:17> Hospitalist Progress Note - Encounter Date of Encounter: 04/15/18 Time of Encounter: 13:18 - Subjective Interval History: Patient was examined at bedside. Was slipping in and out of sleep, still drowsy from anesthesia. Just came back to the room from exploratory celiotomy, primary resection of the sigmoid colon with stapled colocolonic anastomosis; intraoperative rigid sigmoidoscopy; incidental appendectomy for diverticulitis with multiple abscess formation. HE denies any pain at this time. - Exam Vitals: Temp Pulse Resp BP Pulse Ox 97.7 F 100 16 109/74 90 04/15/18 12:47 04/15/18 12:47 04/15/18 12:47 04/15/18 12:47 04/15/18 12:47 Exam: General: Patient is drowsy, shakes head no or yes to questions, falls back to sleep. Respiratory: Slight wheezing noted throughout both lowe rlung ellington, good respiratory effort. Cardiovascular: RRR, no murmurs, rubs, or gallops Abdomen: Abdomen is rigid, surgical dressings intact, no bowel sounds heard Skin: warm, dry, intact. - Assessment and Plan (1) Acute diverticulitis Current Visit: Yes Status: Acute Assessment and Plan: s/p Exploratory celiotomy, primary resection of the sigmoid colon with stapled colocolonic anastomosis; intraoperative rigid sigmoidoscopy; incidental appendectomy pod #0 NPO Pain medication for pain control IV fluids TPN Continue levaquin and flagyl (2) COPD (chronic obstructive pulmonary disease) Current Visit: Yes Status: Chronic Assessment and Plan: continue home medications wean O2 as possible (3) Hyperlipidemia Current Visit: Yes Status: Chronic Assessment and Plan: continue home medications (4) Hypertension Current Visit: Yes Status: Chronic Assessment and Plan: holding home medications DVT Prophylaxis: subq heparin - Time Spent with Patient Total time spent is greater than 50% in coordination of care (as documented) at patient's floor/unit and/or counseling patient: Plan of Care Discussed with: patient Internal Medicine: Result - Labs CBC & Chem 7: 04/15/18 05:26 04/15/18 05:26 Labs: Short CBC 04/15/18 Range/Units 05:26 WBC 14.0 H (4.3-11.1) K/mcL Hgb 13.3 D (12.9-16.9) g/dL Hct 40.2 (37.5-50.1) % Plt Count 307 (140-400) K/mcL Neutrophils # 9.8 H (1.6-8.9) K/mcL BMP 04/15/18 05:26 Sodium 138 Potassium 3.6 Chloride 102 Carbon Dioxide 29 BUN 16 Creatinine 0.72 Glucose 160 H Calcium 8.9 - ABG Interpretation ABG results: PT/INR, D-dimer PT 14.0 Seconds (9.4-12.1) H 04/10/18 05:35 - Impressions Impressions Chest X-Ray 04/14/18 08:44 IMPRESSION: No radiographic evidence of acute cardiopulmonary disease. Pulmonary sequela typical of that seen with smoking, including emphysema. Correlate with clinical history. D/ / Caden Jennings / Caden Jennings Interpreting Provider: Caden Jennings Abdomen/Pelvis CT 04/14/18 09:45 IMPRESSION: 1. Again noted are findings related to acute perforated sigmoid diverticulitis with interval placement of a transgluteal percutaneous drainage catheter into the pelvic abscess which has decreased in size. 2. Increasing mesenteric edema and ascites with more focal areas of the loculated fluid versus fluid collections in the right pelvis and right lower quadrant the largest of these measuring up to 6.2 x 2.4 cm in the right paracolic gutter and 3.6 x 2.7 cm in the right upper pelvis. No gas is noted within these collections. 3. There is a gas-filled sinus tract versus gas predominant collection just above the level of the bladder arising from the mid sigmoid colon measuring approximately 3.4 x 1.3 cm. No other extraluminal gas is identified. 4. Nonobstructing left renal calculus. 5. Gallbladder sludge versus stones. 6. Anasarca. D/ / 04/14/2018 12:24:52 Jaymie Ospina MD / Annabelle Odell Interpreting Provider: Jaymie Ospina MD Consult Discharge Plan - Plan Referrals: Peter Valera MD [Non-Partnered Physician] - Ammon Maradiaga DO [Primary Care Provider] - <Valerie Castillo - Last Filed: 04/15/18 14:12> Hospitalist Progress Note - Encounter Date of Encounter: 04/15/18 Time of Encounter: 14:06 - Exam Vitals: Temp Pulse Resp BP Pulse Ox 97.7 F 94 16 111/76 93 04/15/18 12:47 04/15/18 13:15 04/15/18 13:15 04/15/18 13:15 04/15/18 13:15 - Assessment and Plan (1) Acute diverticulitis Current Visit: Yes Status: Acute (2) COPD exacerbation Current Visit: Yes Status: Acute (3) Hyperlipidemia Current Visit: Yes Status: Chronic (4) Hypertension Current Visit: Yes Status: Chronic (5) Leukocytosis Current Visit: Yes Status: Acute (6) DVT prophylaxis Current Visit: Yes Status: Acute - Time Spent with Patient Total time spent is greater than 50% in coordination of care (as documented) at patient's floor/unit and/or counseling patient: Internal Medicine: Result - Labs CBC & Chem 7: 04/15/18 05:26 04/15/18 05:26 Labs: Short CBC 04/15/18 Range/Units 05:26 WBC 14.0 H (4.3-11.1) K/mcL Hgb 13.3 D (12.9-16.9) g/dL Hct 40.2 (37.5-50.1) % Plt Count 307 (140-400) K/mcL Neutrophils # 9.8 H (1.6-8.9) K/mcL BMP 04/15/18 05:26 Sodium 138 Potassium 3.6 Chloride 102 Carbon Dioxide 29 BUN 16 Creatinine 0.72 Glucose 160 H Calcium 8.9 - ABG Interpretation ABG results: PT/INR, D-dimer PT 14.0 Seconds (9.4-12.1) H 04/10/18 05:35 - Impressions Impressions Chest X-Ray 04/14/18 08:44 IMPRESSION: No radiographic evidence of acute cardiopulmonary disease. Pulmonary sequela typical of that seen with smoking, including emphysema. Correlate with clinical history. D/ / Caden Jennings / Caden Jennings Interpreting Provider: Caden Jennings Abdomen/Pelvis CT 04/14/18 09:45 IMPRESSION: 1. Again noted are findings related to acute perforated sigmoid diverticulitis with interval placement of a transgluteal percutaneous drainage catheter into the pelvic abscess which has decreased in size. 2. Increasing mesenteric edema and ascites with more focal areas of the loculated fluid versus fluid collections in the right pelvis and right lower quadrant the largest of these measuring up to 6.2 x 2.4 cm in the right paracolic gutter and 3.6 x 2.7 cm in the right upper pelvis. No gas is noted within these collections. 3. There is a gas-filled sinus tract versus gas predominant collection just above the level of the bladder arising from the mid sigmoid colon measuring approximately 3.4 x 1.3 cm. No other extraluminal gas is identified. 4. Nonobstructing left renal calculus. 5. Gallbladder sludge versus stones. 6. Anasarca. D/ / 04/14/2018 12:24:52 Jaymie Ospina MD / Annabelle Odell Interpreting Provider: Jaymie Ospina MD - Attending Attestation I saw evaluated and examined this patient and my medical decision-making was reviewed with the Resident Physician, Bernadette De La Torre. I agree with the documented findings, disposition and treatment plan as described except to any changes set forth below. We independently had [id number] contact with the patient. Patient underwent surgery today with exploratory celiotomy and primary resection of the sigmoid colon with stapled colocolonic anastomosis and incidental appendectomy. He is now back on the floor. Very somnolent from anesthesia. Patient had reported some wheezing earlier today. Did received bronchodilator treatments. On exam, patient is very somnolent but awakes. Abdomen distended from surgery. Heart sounds are normal. He does have some wheezing bilaterally. No pedal edema. Acute diverticulitis with abscess: Postop day 0. Exploratory celiotomy with primary sigmoid colon resection. Pain control with IV AMBULANCE ASSISTANT. High risk for complications. Continue current IV antibiotics. Acute bronchitis/COPD: Continue bronchodilators. On Levaquin. Sputum sample was nondiagnostic. Nutrition: Patient continues to be on TPN. Continue to replete electrolytes. Patient will remain on TPN until bowel function result returns and okay from surgical standpoint. This will be a few more days. As such patient may require either a longer stay in the hospital while receiving TPN or transfer to a facility with it can manage TPN. Will consult social staff worker. In the meantime follow surgery recommendations. Diabetes: Continue subcutaneous insulin. Monitor blood sugars. DVT prophylaxis with subcutaneous heparin <Bernadette De La Torre - Last Filed: 04/15/18 13:17> (3) Hyperlipidemia Qualifiers: Hyperlipidemia type: unspecified Qualified Code(s): E78.5 - Hyperlipidemia, unspecified (4) Hypertension Qualifiers: Hypertension type: essential hypertension Qualified Code(s): I10 - Essential (primary) hypertension <Valerie Castillo - Last Filed: 04/15/18 14:12> (3) Hyperlipidemia Qualifiers: Hyperlipidemia type: unspecified Qualified Code(s): E78.5 - Hyperlipidemia, unspecified (4) Hypertension Qualifiers: Hypertension type: essential hypertension Qualified Code(s): I10 - Essential (primary) hypertension (5) Leukocytosis Qualifiers: Leukocytosis type: other Qualified Code(s): D72.828 - Other elevated white blood cell count
[2018-04-15] MEDS: Ringers Solution, Lactated 1,000 ML IVC SCH (13:33)
[2018-04-15] MEDS: *HR* HYDROmorphone 20 MG/20 ML PCA IVC PRN (14:25)
[2018-04-15] MEDS ORDERED: Clinimix E 5%-15% SOLUTION 2,000 ML with MVI, adult with vitamin K 10 ML IVC SCH ×2 (17:00)
[2018-04-16] MEDS: Albuterol 2.5 MG/3 ML NEBULIZER IH SCH ×7 (00:04→23:45)
[2018-04-16] MEDS: Ringers Solution, Lactated 1,000 ML IVC SCH (02:44)
[2018-04-16] MEDS: Insulin LISPRO 300 UNITS/3 ML VIAL SQ SCH ×5 (04:13→23:53)
[2018-04-16 04:19] LABS: Basophils % 0.2 %; Hematocrit 28.7 % (37.5-50.1); Immature Granulocytes % 1.2 % (0-4); Lymphocytes # 0.8 K/mcL (0.6-4.6); Lymphocytes % 4.1 %; Mean Corpuscular HGB Conc 33.1 g/dL (31.6-35.5); Mean Corpuscular Hemoglobin 30.7 pg (28.0-33.3); Mean Corpuscular Volume 92.9 fL (83.0-100.0); Monocytes # 1.6 K/mcL (0.0-1.3); Monocytes % 8.3 %; Neutrophils # 16.9 K/mcL (1.6-8.9); Platelet Count 248 K/mcL (140-400); Red Blood Count 3.09 M/mcL (4.19-5.50); Red Cell Distribution Width 14.1 % (11.5-14.5); Segmented Neutrophils % 86.2 %
[2018-04-16 04:22] LABS: Hemoglobin 9.5 g/dL (12.9-16.9)
[2018-04-16 04:39] LABS: BUN/Creatinine Ratio 31 (6-26); Blood Urea Nitrogen 20 mg/dL (8-23); Calcium 8.2 mg/dL (8.6-10.3); Carbon Dioxide 27 mEq/L (23-29); Chloride 105 mEq/L (98-107); Glucose 270 mg/dL (70-105); Magnesium 1.8 mg/dL (1.6-2.6); Osmolality,Calculated 296 (280-300); Phosphorous 2.5 mg/dL (2.7-4.5); Potassium 4.5 mEq/L (3.5-5.1); Sodium 137 mEq/L (136-145); eGFR For Non-African Americans > 60 (> 60)
[2018-04-16] MEDS: Tiotropium 18 MCG inhalation IH SCH (07:46)
[2018-04-16] MEDS ORDERED: *HR* Heparin 5,000 UNIT/ML VIAL SQ SCH (08:15)
[2018-04-16] MEDS: MetroNIDAZOLE 500 MG/100 ML 500 MG/100 ML BAG IVPB SCH ×3 (09:46→23:43)
[2018-04-16] MEDS: Pantoprazole 40 MG VIAL IVP SCH (09:47)
[2018-04-16] MEDS: Levofloxacin 750 MG/150 ML 750 MG/150 ML BAG IVPB SCH (09:47)
[2018-04-16] MEDS: Budesonide/Formoterol 160/4.5 1 PUFF INH IH SCH ×2 (09:56→19:44)
[2018-04-16] MEDS: Insulin DETEMIR 100 UNIT/ML X5UNITS SQ SCH (09:58)
--- NOTE | 2018-04-16 11:42 | General Surgery Progress Note ---
Date of Encounter: 04/16/18 Time of Encounter: 11:36 Subjective Narrative: General Surgery - POD #1 Patient resting comfortably, easily arousable. Adequate pain control using CLOCKMAKER Dilaudid. Afebrile, currently 98.0; pulse 75-90, respirations 1420; blood pressure 105/66 Lungs: Clear to auscultation with adequate inspiratory effort. SPO2 on 3 L/m nasal cannula 94% Cardiac: Regular rate, no appreciable murmurs Abdomen: Soft, quiet. Midline incision clean and dry. Dressing removed. Urine output: It appears urine output for the last 24 hours is 3350 mL; approximately 900 mL so far today Laboratories: White count 19.6 - elevated most likely in response to surgery Hemoglobin 9.5 with hematocrit 28.7 - this appears to be dilution was patient received 3900 mL IV fluids intraoperatively and continues to receive considerable fluid volume postop. Electrolytes, BUN, creatinine within an acceptable range. Phosphorus 2.5 Impression: Postoperative day #1, status post primary resection sigmoid colon with stapled colocolonic anastomosis for acute perforated sigmoid diverticulitis with pericolic abscess Postoperative anemia which appears to be primarily dilutional Acceptable pain control Nutrition via TPN pending return of bowel function hypophosphatemia - will address with supplementation Plan: Reduce IV fluids A single dose of Lasix for diuresis Continue TPN and CLOCKMAKER Replaced phosphorus Objective Vital Signs - Last 8 Hours Temp Pulse Resp BP Pulse Ox 04/16/18 11:33 14 94 04/16/18 08:03 98.0 F 90 15 105/66 92 04/16/18 07:45 20 92 04/16/18 03:50 98.6 F 75 17 105/67 90 04/16/18 03:44 20 93 Intake and Output 04/16/18 04/16/18 04/16/18 00:59 07:59 15:59 Intake Total 1048 / 1048 Output Total 725 / 725 Balance 323 / 323 Intake: IV Fluids Lactated Ringers 1,000 ML @ 50 mls/hr IVC .Q20H [facility] Rx#: [id number] Intralipid 20% 250 ML @ 21 mls/ hr IVPB DAILY@1700 [facility] Rx#: [id number] Flagyl Premix 500 MG/100 ML 500 mg In 100 ml @ 100 mls/hr IVPB Q8HR [facility] Rx#:[id number] Tube Feeding 1048 / 1048 Output: Urine 725 / 725 Catheter Urethral (Willingham) Other: Meal npo Weight Blood Glucose* 300 Patient Weight 04/16/18 22:59 Weight 73.4 kg - Labs 04/16/18 03:29 04/16/18 03:29 Diabetes panel 04/16/18 Range/Units 03:29 Sodium 137 (136-145) mEq/L Potassium 4.5 (3.5-5.1) mEq/L Chloride 105 (98-107) mEq/L Carbon Dioxide 27 (23-29) mEq/L BUN 20 (8-23) mg/dL Creatinine 0.65 L (0.70-1.30) mg/dL Glucose 270 H (70-105) mg/dL Calcium 8.2 L (8.6-10.3) mg/dL Calcium panel 04/16/18 Range/Units 03:29 Calcium 8.2 L (8.6-10.3) mg/dL Phosphorus 2.5 L (2.7-4.5) mg/dL Pituitary panel 04/16/18 Range/Units 03:29 Sodium 137 (136-145) mEq/L Potassium 4.5 (3.5-5.1) mEq/L Chloride 105 (98-107) mEq/L Carbon Dioxide 27 (23-29) mEq/L BUN 20 (8-23) mg/dL Creatinine 0.65 L (0.70-1.30) mg/dL Glucose 270 H (70-105) mg/dL Calcium 8.2 L (8.6-10.3) mg/dL Adrenal panel 04/16/18 Range/Units 03:29 Sodium 137 (136-145) mEq/L Potassium 4.5 (3.5-5.1) mEq/L Chloride 105 (98-107) mEq/L Carbon Dioxide 27 (23-29) mEq/L BUN 20 (8-23) mg/dL Creatinine 0.65 L (0.70-1.30) mg/dL Glucose 270 H (70-105) mg/dL Calcium 8.2 L (8.6-10.3) mg/dL Consult Discharge Plan - Plan Referrals: Peter Valera MD [Non-Partnered Physician] - Ammon Maradiaga DO [Primary Care Provider] -
[2018-04-16] MEDS ORDERED: Furosemide 40 MG/4 ML VIAL IVP ONE (11:43)
--- NOTE | 2018-04-16 12:40 | Internal Med Progress Note ---
<Valerie Castillo - Last Filed: 04/16/18 13:05> Hospitalist Progress Note - Encounter Date of Encounter: 04/16/18 Time of Encounter: 10:10 - Exam Vitals: Temp Pulse Resp BP Pulse Ox 98.0 F 90 14 105/66 94 04/16/18 08:03 04/16/18 08:03 04/16/18 11:33 04/16/18 08:03 04/16/18 11:33 - Assessment and Plan (1) Acute diverticulitis Current Visit: Yes Status: Acute (2) COPD exacerbation Current Visit: Yes Status: Acute (3) Hyperlipidemia Current Visit: Yes Status: Chronic (4) Hypertension Current Visit: Yes Status: Chronic (5) Leukocytosis Current Visit: Yes Status: Acute (6) DVT prophylaxis Current Visit: Yes Status: Acute - Time Spent with Patient Total time spent is greater than 50% in coordination of care (as documented) at patient's floor/unit and/or counseling patient: Internal Medicine: Result - Labs CBC & Chem 7: 04/16/18 12:00 04/16/18 03:29 Labs: Short CBC 04/16/18 04/16/18 Range/Units 03:29 12:00 WBC 19.6 H (4.3-11.1) K/mcL Hgb 9.5 L D 9.1 L (12.9-16.9) g/dL Hct 28.7 L 27.2 L (37.5-50.1) % Plt Count 248 (140-400) K/mcL Neutrophils # 16.9 H (1.6-8.9) K/mcL BMP 04/16/18 03:29 Sodium 137 Potassium 4.5 Chloride 105 Carbon Dioxide 27 BUN 20 Creatinine 0.65 L Glucose 270 H Calcium 8.2 L - ABG Interpretation ABG results: PT/INR, D-dimer PT 14.0 Seconds (9.4-12.1) H 04/10/18 05:35 Consult Discharge Plan - Plan Referrals: Peter Valera MD [Non-Partnered Physician] - Ammon Maradiaga DO [Primary Care Provider] - - Attending Attestation I saw evaluated and examined this patient and my medical decision-making was reviewed with the Resident Physician, Bernadette De La Torre. I agree with the documented findings, disposition and treatment plan as described except to any changes set forth below. We independently had [id number] contact with the patient. Patient is currently lying down in bed. Reports pain in his lower abdomen all across. Has been receiving MANAGER OF PHOTOGRAPHY. Denies any chest pain or palpitations. No shortness of breath reported. Remains on TPN. Feels bloated in his abdomen. Has not been able to pass any flatus yet. On exam, patient is awake and alert. Lying down in bed. Patient has decreased breath sounds at both bases. Mild end expiratory wheezing bilaterally. Heart sounds are normal. Abdomen is soft, distended. Decreased bowel sounds. Tender to palpation. Acute diverticulitis status post exploratory celiotomy and primary resection of sigmoid colon with colocolonic anastomosis postop day 1. Continue management of pain with IV Dilaudid MANAGER OF PHOTOGRAPHY. Patient receiving 1 dose of 40 mg IV Lasix per surgery recommendations. Patient did receive lots of IV fluids in the perioperative period. High risk for complications. Continue current antibiotics. Leukocytosis worsened today but likely due to surgery yesterday. Nutrition: Patient continues to receive TPN. Phosphorus levels being repleted. COPD: Continue bronchodilators. Continue O2 supplementation. DVT prophylaxis: With SCDs. Recommend heparin subcutaneous when okay with surgery. Anemia: Hemoglobin 9.5 this morning. We will continue to monitor. Likely due to surgery related blood losses. Diabetes mellitus type 2: Continue insulin. Blood sugars are elevated. Will add Levemir. <Bernadette De La Torre E - Last Filed: 04/16/18 14:09> Hospitalist Progress Note - Encounter Date of Encounter: 04/16/18 Time of Encounter: 12:37 - Subjective Interval History: Patient was examined at bedside. He states he does have soem pain but has been using his MANAGER OF PHOTOGRAPHY regularly when the medication wears off. He states he has noticed what he feels is gas like pain in his stomach but has not had a bowel movment or passed gas since surgery. He denies headache, n/v. He does state he has an old fentanyl patch on his back from last Tuesday that he would like taken off at this time. Nurse was notified. - Exam Vitals: Temp Pulse Resp BP Pulse Ox 98.0 F 90 14 105/66 94 04/16/18 08:03 04/16/18 08:03 04/16/18 11:33 04/16/18 08:03 04/16/18 11:33 Exam: General: Patient is drowsy, moderate distress, answers questions appropriately Respiratory: Slight wheezing noted throughout both lower lung [place], good respiratory effort. Cardiovascular: RRR, no murmurs, rubs, or gallops Abdomen: Abdomen is rigid, surgical dressings intact, no bowel sounds heard Skin: warm, dry, intact. - Assessment and Plan (1) Acute diverticulitis Current Visit: Yes Status: Acute Assessment and Plan: s/p Exploratory celiotomy, primary resection of the sigmoid colon with stapled colocolonic anastomosis; intraoperative rigid sigmoidoscopy; incidental appendectomy pod #1 NPO Pain medication for pain control IV fluids TPN Continue levaquin and flagyl (2) COPD (chronic obstructive pulmonary disease) Current Visit: Yes Status: Chronic Assessment and Plan: continue home medications wean O2 as possible (3) Hyperlipidemia Current Visit: Yes Status: Chronic Assessment and Plan: continue home medications (4) Hypertension Current Visit: Yes Status: Chronic Assessment and Plan: hold home medications DVT Prophylaxis: subq heparin - Time Spent with Patient Total time spent is greater than 50% in coordination of care (as documented) at patient's floor/unit and/or counseling patient: Plan of Care Discussed with: patient Internal Medicine: Result - Labs CBC & Chem 7: 04/16/18 12:00 04/16/18 03:29 Labs: Short CBC 04/16/18 Range/Units 03:29 WBC 19.6 H (4.3-11.1) K/mcL Hgb 9.5 L D (12.9-16.9) g/dL Hct 28.7 L (37.5-50.1) % Plt Count 248 (140-400) K/mcL Neutrophils # 16.9 H (1.6-8.9) K/mcL BMP 04/16/18 03:29 Sodium 137 Potassium 4.5 Chloride 105 Carbon Dioxide 27 BUN 20 Creatinine 0.65 L Glucose 270 H Calcium 8.2 L - ABG Interpretation ABG results: PT/INR, D-dimer PT 14.0 Seconds (9.4-12.1) H 04/10/18 05:35 - VTE Documentation of Mechanical Device: Intermittent pneumatic compression device <Oniel Castillojan - Last Filed: 04/16/18 13:05> (3) Hyperlipidemia Qualifiers: Hyperlipidemia type: unspecified Qualified Code(s): E78.5 - Hyperlipidemia, unspecified (4) Hypertension Qualifiers: Hypertension type: essential hypertension Qualified Code(s): I10 - Essential (primary) hypertension (5) Leukocytosis Qualifiers: Leukocytosis type: other Qualified Code(s): D72.828 - Other elevated white blood cell count <Richcreek,Bernadette E - Last Filed: 04/16/18 14:09> (3) Hyperlipidemia Qualifiers: Hyperlipidemia type: unspecified Qualified Code(s): E78.5 - Hyperlipidemia, unspecified (4) Hypertension Qualifiers: Hypertension type: essential hypertension Qualified Code(s): I10 - Essential (primary) hypertension
[2018-04-16 12:58] LABS: Hematocrit 27.2 % (37.5-50.1); Hemoglobin 9.1 g/dL (12.9-16.9)
[2018-04-16] MEDS: *HR* HYDROmorphone 20 MG/20 ML PCA IVC PRN (15:05)
[2018-04-16] MEDS ORDERED: Clinimix E 5%-15% SOLUTION 2,000 ML with MVI, adult with vitamin K 10 ML IVC SCH (17:00)
[2018-04-16] MEDS: Clinimix E 5%-15% SOLUTION 2,000 ML with MVI, adult with vitamin K 10 ML IVC SCH (17:59)
[2018-04-16 21:10] LABS: Hematocrit 32.4 % (37.5-50.1); Hemoglobin 10.6 g/dL (12.9-16.9)
[2018-04-17] MEDS ORDERED: Acetaminophen IV 500 MG/50 ML INFUS..BTL IVPB ONE (01:16)
[2018-04-17] MEDS: Albuterol 2.5 MG/3 ML NEBULIZER IH SCH ×6 (03:49→23:56)
[2018-04-17] MEDS: Insulin LISPRO 300 UNITS/3 ML VIAL SQ SCH ×5 (04:42→21:55)
[2018-04-17] MEDS: Tiotropium 18 MCG inhalation IH SCH (07:28)
[2018-04-17] MEDS: Budesonide/Formoterol 160/4.5 1 PUFF INH IH SCH ×2 (07:28→20:04)
[2018-04-17] MEDS: Ringers Solution, Lactated 1,000 ML IVC SCH ×2 (07:45→09:44)
[2018-04-17] MEDS: Pantoprazole 40 MG VIAL IVP SCH (09:41)
[2018-04-17] MEDS: MetroNIDAZOLE 500 MG/100 ML 500 MG/100 ML BAG IVPB SCH ×2 (09:42→15:51)
[2018-04-17] MEDS: Insulin DETEMIR 100 UNIT/ML X5UNITS SQ SCH (09:44)
[2018-04-17 09:54] LABS: Basophils # 0.1 K/mcL (0.0-0.2); Basophils % 0.4 %; Eosinophils # 0.2 K/mcL (0.0-0.6); Hematocrit 28.8 % (37.5-50.1); Hemoglobin 9.5 g/dL (12.9-16.9); Immature Granulocytes % 1.6 % (0-4); Lymphocytes # 1.7 K/mcL (0.6-4.6); Lymphocytes % 8.6 %; Mean Corpuscular Hemoglobin 30.7 pg (28.0-33.3); Mean Corpuscular Volume 93.2 fL (83.0-100.0); Mean Platelet Volume 10.3 fL (9.4-12.4); Monocytes # 2.1 K/mcL (0.0-1.3); Monocytes % 10.5 %; Neutrophils # 15.2 K/mcL (1.6-8.9); Platelet Count 333 K/mcL (140-400); Red Blood Count 3.09 M/mcL (4.19-5.50); Red Cell Distribution Width 14.7 % (11.5-14.5); Segmented Neutrophils % 77.9 %
[2018-04-17 10:15] LABS: Alanine Aminotransferase 16 Units/L (7-52); Albumin 2.5 g/dL (3.5-5.7); Alkaline Phosphatase 45 Units/L (34-104); Aspartate Amino Transferase 11 Units/L (13-39); BUN/Creatinine Ratio 36 (6-26); Bilirubin,Total 0.3 mg/dL (0.3-1.0); Blood Urea Nitrogen 25 mg/dL (8-23); Carbon Dioxide 28 mEq/L (23-29); Chloride 105 mEq/L (98-107); Globulin 2.4 g/dL (2.4-3.5); Glucose 116 mg/dL (70-105); Magnesium 1.9 mg/dL (1.6-2.6); Osmolality,Calculated 295 (280-300); Phosphorous 3.3 mg/dL (2.7-4.5); Potassium 3.9 mEq/L (3.5-5.1); Sodium 140 mEq/L (136-145); Total Protein 4.9 g/dL (6.4-8.9); eGFR For Non-African Americans > 60 (> 60)
[2018-04-17] MEDS: Levofloxacin 750 MG/150 ML 750 MG/150 ML BAG IVPB SCH (10:20)
--- NOTE | 2018-04-17 10:40 | Internal Med Progress Note ---
<Bernadette De La Torre E - Last Filed: 04/17/18 13:53> Hospitalist Progress Note - Encounter Date of Encounter: 04/17/18 Time of Encounter: 09:00 - Subjective Interval History: Patient was examined at bedside. He had a rough night after having a breathing treatment and then coughing which caused a lot of pain, he has been keeping up with using his MASTER BREWER which has helped some. He states it hurts every time he coughs. He denies any bowel movement or passing of gas. Denies headache, dizziness. - Exam Vitals: Temp Pulse Resp BP Pulse Ox 98.7 F 89 17 98/56 93 04/17/18 08:08 04/17/18 08:08 04/17/18 08:08 04/17/18 08:08 04/17/18 08:08 Exam: General: Patient is drowsy, moderate distress, answers questions appropriately Respiratory: Slight wheezing noted throughout both lower lung [place], good respiratory effort. Cardiovascular: RRR, no murmurs, rubs, or gallops Abdomen: Abdomen is rigid, surgical dressings intact, no bowel sounds heard Skin: warm, dry, intact. - Assessment and Plan (1) Acute diverticulitis Current Visit: Yes Status: Acute Assessment and Plan: s/p Exploratory celiotomy, primary resection of the sigmoid colon with stapled colocolonic anastomosis; intraoperative rigid sigmoidoscopy; incidental appendectomy pod #2 NPO Pain medication for pain control IV fluids TPN Continue levaquin and flagyl possible abdominal binder to help with pain (2) COPD (chronic obstructive pulmonary disease) Current Visit: Yes Status: Chronic Assessment and Plan: continue home medications wean O2 as possible Duoneb as needed (3) Hyperlipidemia Current Visit: Yes Status: Chronic Assessment and Plan: continue home medications (4) Hypertension Current Visit: Yes Status: Chronic Assessment and Plan: hold home medications (5) Diabetes Current Visit: Yes Status: Chronic Assessment and Plan: continue insulin and levamir (6) Anemia Current Visit: Yes Status: Acute Assessment and Plan: possibly due to surgery Continue to monitor hemoglobin and hematocrit daily DVT Prophylaxis: subq heparin - Time Spent with Patient Total time spent is greater than 50% in coordination of care (as documented) at patient's floor/unit and/or counseling patient: Plan of Care Discussed with: patient Internal Medicine: Result - Labs CBC & Chem 7: 04/17/18 04:00 04/17/18 04:00 Labs: Short CBC 04/16/18 04/16/18 04/17/18 Range/Units 12:00 20:00 04:00 WBC 19.5 H (4.3-11.1) K/mcL Hgb 9.1 L 10.6 L D 9.5 L (12.9-16.9) g/dL Hct 27.2 L 32.4 L 28.8 L (37.5-50.1) % Plt Count 333 (140-400) K/mcL Neutrophils # 15.2 H (1.6-8.9) K/mcL BMP 04/17/18 04:00 Sodium 140 Potassium 3.9 Chloride 105 Carbon Dioxide 28 BUN 25 H Creatinine 0.69 L Glucose 116 H Calcium 8.0 L Liver Function 04/17/18 Range/Units 04:00 Total Bilirubin 0.3 (0.3-1.0) mg/dL AST 11 L (13-39) Units/L ALT 16 (7-52) Units/L Alkaline Phosphatase 45 (34-104) Units/L Albumin 2.5 L (3.5-5.7) g/dL - ABG Interpretation ABG results: PT/INR, D-dimer PT 14.0 Seconds (9.4-12.1) H 04/10/18 05:35 - VTE Documentation of Mechanical Device: Intermittent pneumatic compression device Consult Discharge Plan - Plan Referrals: Peter Valera MD [Non-Partnered Physician] - Ammon Maradiaga DO [Primary Care Provider] - <Valerie Castillo - Last Filed: 04/17/18 14:02> Hospitalist Progress Note - Encounter Date of Encounter: 04/17/18 Time of Encounter: 09:10 - Exam Vitals: Temp Pulse Resp BP Pulse Ox 98.5 F 95 12 115/72 90 04/17/18 10:46 04/17/18 10:46 04/17/18 10:46 04/17/18 10:46 04/17/18 10:46 - Assessment and Plan (1) Acute diverticulitis Current Visit: Yes Status: Acute (2) COPD exacerbation Current Visit: Yes Status: Acute (3) Hyperlipidemia Current Visit: Yes Status: Chronic (4) Hypertension Current Visit: Yes Status: Chronic (5) Leukocytosis Current Visit: Yes Status: Acute (6) DVT prophylaxis Current Visit: Yes Status: Acute - Time Spent with Patient Total time spent is greater than 50% in coordination of care (as documented) at patient's floor/unit and/or counseling patient: Internal Medicine: Result - Labs CBC & Chem 7: 04/17/18 04:00 04/17/18 04:00 Labs: Short CBC 04/16/18 04/17/18 Range/Units 20:00 04:00 WBC 19.5 H (4.3-11.1) K/mcL Hgb 10.6 L D 9.5 L (12.9-16.9) g/dL Hct 32.4 L 28.8 L (37.5-50.1) % Plt Count 333 (140-400) K/mcL Neutrophils # 15.2 H (1.6-8.9) K/mcL BMP 04/17/18 04:00 Sodium 140 Potassium 3.9 Chloride 105 Carbon Dioxide 28 BUN 25 H Creatinine 0.69 L Glucose 116 H Calcium 8.0 L Liver Function 04/17/18 Range/Units 04:00 Total Bilirubin 0.3 (0.3-1.0) mg/dL AST 11 L (13-39) Units/L ALT 16 (7-52) Units/L Alkaline Phosphatase 45 (34-104) Units/L Albumin 2.5 L (3.5-5.7) g/dL - ABG Interpretation ABG results: PT/INR, D-dimer PT 14.0 Seconds (9.4-12.1) H 04/10/18 05:35 - Attending Attestation I saw evaluated and examined this patient and my medical decision-making was reviewed with the Resident Physician, Bernadette De La Torre. I agree with the documented findings, disposition and treatment plan as described except to any changes set forth below. We independently had [id number] contact with the patient. Patient continues to have significant pain in his abdomen. It has been going up as high as 10 out of 10 in severity especially last night when he did not receive IV Tylenol with no significant improvement. Anus currently is mainly in the right lower quadrant and at the surgical site. He has not had any fevers or chills. No nausea or vomiting. Remains on TPN. On exam, patient is awake and alert. Breath sounds have improved significantly. Much better air entry except at bases. Minimal wheezing. Abdomen is soft, severely tender. No guarding or rigidity. No pedal edema at this time. Heart sounds are normal. Acute diverticulitis status post exploratory celiotomy and primary resection of sigmoid colon with colocolonic anastomosis postop day 2. We will increase MASTER BREWER dosage for better pain control. Discussed with surgery. Will hold off on any imaging for now as it stools after surgery. WBC count remains elevated. Most likely due to postsurgical status. We will continue to monitor. Continue current antibiotics. Consider consultation with infectious disease. Patient's cultures growing Escherichia coli and Proteus both of which are sensitive to cephalosporins. Nutrition: Continue TPN. Replete electrolytes as needed. COPD: Continue bronchodilators. Continue O2 supplementation. Encouraged incentive spirometry. DVT prophylaxis: With SCDs. Recommend heparin subcutaneous when okay with surgery. Anemia: Hemoglobin 9.5 again this morning. Stable. Diabetes mellitus type 2: Patient has responded well to long-acting insulin. Continue current insulin regimen while patient is on TPN. High risk for complications. <Bernadette De La Torre - Last Filed: 04/17/18 13:53> (3) Hyperlipidemia Qualifiers: Hyperlipidemia type: unspecified Qualified Code(s): E78.5 - Hyperlipidemia, unspecified (4) Hypertension Qualifiers: Hypertension type: essential hypertension Qualified Code(s): I10 - Essential (primary) hypertension (5) Diabetes Qualifiers: Diabetes mellitus type: type 2 Diabetes mellitus intermediate insulin use: without watcher automat long goods use (6) Anemia Qualifiers: Anemia type: unspecified type Qualified Code(s): D64.9 - Anemia, unspecified <Valerie Castillo - Last Filed: 04/17/18 14:02> (3) Hyperlipidemia Qualifiers: Hyperlipidemia type: unspecified Qualified Code(s): E78.5 - Hyperlipidemia, unspecified (4) Hypertension Qualifiers: Hypertension type: essential hypertension Qualified Code(s): I10 - Essential (primary) hypertension (5) Leukocytosis Qualifiers: Leukocytosis type: other Qualified Code(s): D72.828 - Other elevated white blood cell count
[2018-04-17] MEDS: *HR* HYDROmorphone 20 MG/20 ML PCA IVC PRN ×2 (11:53→20:48)
[2018-04-17] MEDS ORDERED: *HR* HYDROmorphone 2 MG/ML SYRINGE IVP STA (12:06)
[2018-04-17] MEDS ORDERED: *HR* HYDROmorphone (PF) 1 MG/ML SYRINGE IVP STA (12:09)
--- NOTE | 2018-04-17 12:50 | General Surgery Progress Note ---
Date of Encounter: 04/17/18 Time of Encounter: 12:00 Subjective Narrative: General Surgery - POD #2 Patient complaining of increased abdominal pain getting around 12 midnight last evening. Despite these symptoms, patient has remained afebrile, hemodynamically stable. No nausea or vomiting. Maximum temperature 99.1; pulse 89-95, respirations 1618; blood pressure through the night around 96/60; currently 115/72. Lungs: Clear; no obvious [place] pain with deep inspiration Cardiac: Regular rate, no appreciable murmurs Abdomen: Soft with active bowel sounds. Tenderness appears to be localized in the left lower quadrant. No obvious peritoneal signs. Midline incision intact, clean and dry. Urine output: Almost 4 L in the last 24 hours; 850 mL so far today Operative cultures: Pansensitive Escherichia coli and Proteus mirabilis Labs: White count 19.5, essentially unchanged; hemoglobin 9.5 / hematocrit 28.8. Platelet count 333,000; neutrophils 15.2, monocytes 2.1 Electrolytes: Within normal limits; BUN 25, creatinine 0.69. Blood sugar 116; Accu-Cheks 153 to 210 with adjusted sliding-scale coverage and increase in daily insulin Impression: Postoperative day #2, status post primary sigmoid colectomy with stapled colocolonic anastomosis for acute perforated sigmoid diverticulitis with pericolic abscess. Operative cultures show pansensitive Escherichia coli and Proteus mirabilis. Increased abdominal pain overnight of uncertain significance but warrants continued monitoring. CT abd / pelvis of limited value this soon following surgery. Postoperative anemia appears to be dilutional - significant diuresis in the last 24 hours, however, we will continue to monitor H&H. Objective Vital Signs - Last 8 Hours Temp Pulse Resp BP Pulse Ox 04/17/18 10:46 98.5 F 95 12 115/72 90 04/17/18 08:08 98.7 F 89 17 98/56 93 04/17/18 07:43 18 92 Intake and Output 04/16/18 04/17/18 04/17/18 23:59 07:59 15:59 Intake Total 2370 / 2370 150 / 150 500 / 500 Output Total 1075 / 1075 400 / 400 750 / 750 Balance 1295 / 1295 -250 / -250 -250 / -250 Intake: IV Fluids 2370 / 2370 150 / 150 500 / 500 Clinimix E 5%-15% SOLUTION 2009 000 ML @ 65 mls/hr IVC .Q24H JEANE with M.v.i. Adult 10 ml Rx# :[id number] Ofirmev 1,000 mg/100 ml 500 mg 50 / 50 In 50 ml @ 200 mls/hr IVPB ONCE ONE Rx#:[id number] Intralipid 20% 250 ML @ 21 mls/ 250 / 250 hr IVPB DAILY@1700 JEANE Rx#: [id number] Levaquin Premix 750mg/150 mL 150 / 150 750 mg In 150 ml @ 100 mls/hr IVPB DAILY [facility] Rx#:[id number] Flagyl Premix 500 MG/100 ML 500 100 / 100 100 / 100 100 / 100 mg In 100 ml @ 100 mls/hr IVPB Q8HR [facility] Rx#:[id number] Sodium Phosphate 30 MMOL In 0.9 260 / 260 % Sodium Chloride 250 ML @ 42 mls/hr IVPB ONCE ONE Rx#: [id number] Oral 0 / 0 0 / 0 0 / 0 Output: Urine 300 / 300 Catheter 1075 / 1075 400 / 400 450 / 450 Urethral ([place]) 875 / 875 Other: Meal NPO Weight 74.1 kg Blood Glucose* 152 153 133 Patient Weight 04/17/18 23:59 Weight 74.1 kg - Labs 04/17/18 04:00 04/17/18 04:00 Diabetes panel 04/17/18 Range/Units 04:00 Sodium 140 (136-145) mEq/L Potassium 3.9 (3.5-5.1) mEq/L Chloride 105 (98-107) mEq/L Carbon Dioxide 28 (23-29) mEq/L BUN 25 H (8-23) mg/dL Creatinine 0.69 L (0.70-1.30) mg/dL Glucose 116 H (70-105) mg/dL Calcium 8.0 L (8.6-10.3) mg/dL AST 11 L (13-39) Units/L ALT 16 (7-52) Units/L Alkaline Phosphatase 45 (34-104) Units/L Albumin 2.5 L (3.5-5.7) g/dL Calcium panel 04/17/18 Range/Units 04:00 Calcium 8.0 L (8.6-10.3) mg/dL Phosphorus 3.3 (2.7-4.5) mg/dL Albumin 2.5 L (3.5-5.7) g/dL Pituitary panel 04/17/18 Range/Units 04:00 Sodium 140 (136-145) mEq/L Potassium 3.9 (3.5-5.1) mEq/L Chloride 105 (98-107) mEq/L Carbon Dioxide 28 (23-29) mEq/L BUN 25 H (8-23) mg/dL Creatinine 0.69 L (0.70-1.30) mg/dL Glucose 116 H (70-105) mg/dL Calcium 8.0 L (8.6-10.3) mg/dL Adrenal panel 04/17/18 Range/Units 04:00 Sodium 140 (136-145) mEq/L Potassium 3.9 (3.5-5.1) mEq/L Chloride 105 (98-107) mEq/L Carbon Dioxide 28 (23-29) mEq/L BUN 25 H (8-23) mg/dL Creatinine 0.69 L (0.70-1.30) mg/dL Glucose 116 H (70-105) mg/dL Calcium 8.0 L (8.6-10.3) mg/dL Total Bilirubin 0.3 (0.3-1.0) mg/dL AST 11 L (13-39) Units/L ALT 16 (7-52) Units/L Alkaline Phosphatase 45 (34-104) Units/L Albumin 2.5 L (3.5-5.7) g/dL - VTE Documentation of Mechanical Device: Intermittent pneumatic compression device Consult Discharge Plan - Plan Referrals: Peter Valera MD [Non-Partnered Physician] - Ammon Maradiaga DO [Primary Care Provider] -
[2018-04-17] MEDS ORDERED: Fluconazole 400 MG/200 ML 400 MG/200 ML BAG IVPB ONE (14:06)
--- NOTE | 2018-04-17 14:13 | Infectious Disease Consult ---
Date of Encounter: 04/17/18 Time of Encounter: 13:59 Assessment and Plan (1) Sepsis Status: Acute Assessment and plan: Secondary to acute diverticulitis with perforated sigmoid colon and pericolonic abscess Status post exploratory celiotomy by Dr. valera Intra-Op cultures positive for Continue levofloxacin and Flagyl Add fluconazole Monitor labs and for drug toxicity Qualifiers: Sepsis type: sepsis due to unspecified organism Qualified Code(s): A41.9 - Sepsis, unspecified organism (2) Acute diverticulitis Status: Acute (3) Pericolonic abscess due to diverticulitis Status: Acute (4) Allergy to multiple antibiotics Status: Acute Assessment and plan: Penicillin allergy about 10 years ago he said he had burning everywhere. Not sure if he had hives or angioedema. Sulfa allergies had lesions in his mouth. (Tobias Tang?) Infectious Disease HPI - Data of Consult Patient: new to practice Consult date: 04/17/18 Requesting Physician: Valerie Castillo MD Primary Care Provider: Ammon Maradiaga DO - Consult Narrative Reason for consult: Pelvic abscess History of present illness: Mr. Salinas is a 67 year old male with a past medical history COPD, hyperlipidemia, hypertension, kidney stones, and prostatitis. The patient was eventually hospital 04/01/18 for diverticulitis with abscess. We are consulted April 17 for antibiotic recommendations for intra-abdominal abscess. Briefly, the patient is a 67-year-old male with past medical history as stated above. The patient presented to the emergency department with a one-week history of bilateral lower abdominal pain and rectal pain that increased with defecation or urination. Upon arrival to the ER, he was afebrile and hemodynamically stable. Examination revealed pain with palpation of the prostate. He is also noted to have urinary retention and a Willingham catheter was placed. He had a CT of the abdomen and pelvis that showed sigmoid diverticulitis with pericolonic abscess. Laboratory studies revealed a white blood cell count of 15,000 with neutrophilic predominance. LFTs, amylase and lipase, and kidney function within normal limits. Urinalysis was negative for pyuria. He was started on Levaquin and Flagyl and admitted to the hospital for further evaluation. Since admission, the patient has remained hemodynamically stable. He did have a fever last documented on 04/11/18 with a MAXIMUM TEMPERATURE of 101.6. Upon admission to the hospital, interventional radiology was consulted and placed a transgluteal 14-Lithuanian drain with approximately 30 mL of pus removed. Cultures came back positive for Escherichia coli and Proteus. General surgery was c onsulted to originally planned to allow for bowel rest and antibiotics to decrease the inflammation in the abdomen for surgery. The patient continued to have persistent leukocytosis. Repeat CT of the abdomen and pelvis 04/14/18 showed findings related to acute perforated sigmoid diverticulitis with interval placement of a transgluteal percutaneous drainage catheter in the pelvic abscess which had decreased in size. There was increasing mesenteric edema and ascites with more focal areas of the loculated fluid versus fluid collections in the right pelvis and right lower quadrant large liver lesions measuring up to 6.2 x 2.4 cm and the right paracolic gutter and 3.6 x 2.7 cm in the right upper pelvis. No gas was noted in these collections. There was a gas-filled sinus tract versus gas predominant collection just above the level of the bladder arising from the mid sigmoid colon measuring approximately 3.4 x 1.3 cm with no extraluminal gas identified. Taken to the operating room 04/15/18 for exploratory celiotomy with primary resection of the sigmoid colon and stapled colocolonic anastomosis and intraoperative rigid sigmoidoscopy and incidental appendectomy. Postsurgery, the patient has been afebrile. He continues to have leukocytosis with neutrophilic predominance. Currently, he is on IV Levaquin and Flagyl. We have been asked to evaluate and make further recommendations. CC: Valerie Castillo MD Past Med Surg Social Fam HX - Past Medical History Medical history: COPD, hyperlipidemia, hypertension, kidney stones Psychiatric history: no psych history - Past Surgical History Additional surgical history: sinus sx, kidney stone sx - Social History Smoking Status: Former smoker Smokeless Tobacco Status: No Alcohol use: rarely Drug use: none - Family History Mother Living Status: Hx Family Endocrine Disorder: Yes (DM) Infectious Disease-CN:Meds RX: Albuterol Sulfate [Proair Hfa] 2 puff IH Q4H PRN 12/26/15 [History] RX: Budesonide/Formoterol 160/4.5 [Symbicort 160/4.5] 2 puff IH BIDR 12/26/15 [H istory] RX: Roflumilast [Daliresp] 500 mcg PO DAILY 12/26/15 [History] hydroCHLOROthiazide [Hydrochlorothiazide] 25 mg PO DAILY 10/24/16 [History] Vit A/C/E AC/Znox/Cupric Oxide [Eye Vitamin-Minerals Tablet] 1 tab PO DAILY 07/25/17 [History] levoFLOXacin [Levaquin] 500 mg PO DAILY #20 tablet 04/09/18 [Rx] Acetylcysteine [S-Ndowpv-i-Cysteine] 1,200 mg PO DAILY 04/10/18 [History] Atorvastatin [Lipitor] 40 mg PO HS 04/10/18 [History] Fenofibrate Nanocrystallized [Triglide] 160 mg PO DAILY 04/10/18 [History] Tiotropium [Spiriva] 1 puff PO DAILY PRN 04/10/18 [History] Vit C/E/Zn/Coppr/Lutein/Zeaxan [Preservision Areds 2 Softgel] 1 cap PO DAILY 04/10/18 [History] Allergy/AdvReac Type Severity Reaction Status Date / Time Penicillins Allergy Hives Verified 04/10/18 14:27 Sulfa (Sulfonamide Allergy Hives Verified 04/10/18 14:27 Antibiotics) Review of systems: 10 point review of systems done, negative other for what is mentioned in history of present illness Exam - Constitutional Vitals: Temp Pulse Resp BP Pulse Ox 98.5 F 95 12 115/72 90 04/17/18 10:46 04/17/18 10:46 04/17/18 10:46 04/17/18 10:46 04/17/18 10:46 General appearance: no acute distress, no febrile - Head Head exam: Present: atraumatic, normocephalic - Eye Eye exam: Present: PERRL, sclera anicteric - ENT ENT exam: Present: mucous membranes moist, normal exam - Neck Neck exam: Present: full ROM. Absent: meningismus - Respiratory Respiratory exam: Present: CTAB. Absent: wheezes - Cardiovascular Cardiovascular exam: Present: RRR, +S1, +S2 - GI/Abdominal GI/Abdominal exam: Present: tenderness Additional comments: Surgical wound intact mid abdomen with eliane intact no erythema no drainage no fluctuance - Extremities Exam Extremities exam: Present: full ROM. 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 Absent: rash Infectious Disease CN: Results - Labs CBC & Chem 7: 04/17/18 04:00 04/17/18 04:00 Cultures: Cultures 04/10/18 11:14 Anaerobic Culture - Final Other-Specify in Comments No anaerobes were recovered. 04/14/18 18:45 Sputum Culture - Final Sputum 04/10/18 11:14 Body Fluid Culture - Final Other-Specify in Comments Escherichia coli Proteus mirabilis Serology: Serology 04/09/18 Range/Units 21:17 Urine Color Yellow (Yellow) Urine Clarity Cloudy A (Clear) Urine pH 7.5 (5.0-8.0) pH Units Ur Specific [place] 1.013 (1.010-1.025) Urine Protein Negative (Neg-Trace) mg/dL Urine Glucose (UA) Normal (Normal) mg/dL Urine Ketones Negative (Negative) mg/dL Urine Blood Negative (Negative) Urine Nitrite Negative (Negative) Urine Bilirubin Negative (Negative) Urine Urobilinogen Normal (Normal) mg/dL Ur Leukocyte Esterase Negative (Negative) Urine Microscopic RBC 0-3 (0-3) per hpf Urine Microscopic WBC 0-3 (0-3) per hpf Ur Squamous Epith Cells Few (None-Few) per lpf Urine Bacteria None Seen (None-Few) per hpf Hyaline Casts None Seen (None-Few) per lpf Ur Culture Indicated? NO (NO) - VTE Documentation of Mechanical Device: Intermittent pneumatic compression device Consult Discharge Plan - Plan Referrals: Peter Valera MD [Non-Partnered Physician] - Ammon Maradiaga DO [Primary Care Provider] -
[2018-04-17] MEDS ORDERED: *HR* Alteplase (Cathflo) 2 MG VIAL IVP ONE (16:05)
[2018-04-17] MEDS ORDERED: Clinimix E 5%-15% SOLUTION 2,000 ML with MVI, adult with vitamin K 10 ML IVC SCH (17:00)
[2018-04-17] MEDS: Clinimix E 5%-15% SOLUTION 2,000 ML with MVI, adult with vitamin K 10 ML IVC SCH (17:54)
[2018-04-18] MEDS: MetroNIDAZOLE 500 MG/100 ML 500 MG/100 ML BAG IVPB SCH ×4 (00:15→23:40)
[2018-04-18] MEDS: Insulin LISPRO 300 UNITS/3 ML VIAL SQ SCH ×6 (00:45→21:14)
[2018-04-18] MEDS: Albuterol 2.5 MG/3 ML NEBULIZER IH SCH ×7 (04:07→23:48)
[2018-04-18 04:50] LABS: Basophils # 0.1 K/mcL (0.0-0.2); Basophils % 0.5 %; Eosinophils # 0.4 K/mcL (0.0-0.6); Eosinophils % 1.6 %; Hematocrit 31.2 % (37.5-50.1); Immature Granulocytes % 2.7 % (0-4); Lymphocytes # 2.1 K/mcL (0.6-4.6); Lymphocytes % 9.5 %; Mean Corpuscular HGB Conc 32.1 g/dL (31.6-35.5); Mean Corpuscular Hemoglobin 30.4 pg (28.0-33.3); Mean Corpuscular Volume 94.8 fL (83.0-100.0); Mean Platelet Volume 10.3 fL (9.4-12.4); Monocytes # 2.2 K/mcL (0.0-1.3); Monocytes % 10.1 %; Neutrophils # 16.6 K/mcL (1.6-8.9); Nucleated Red Blood Cells 0.1 /100 WBC (0); Platelet Count 399 K/mcL (140-400); Red Blood Count 3.29 M/mcL (4.19-5.50); Red Cell Distribution Width 14.9 % (11.5-14.5); Segmented Neutrophils % 75.6 %
[2018-04-18 05:12] LABS: BUN/Creatinine Ratio 36 (6-26); Blood Urea Nitrogen 27 mg/dL (8-23); Calcium 8.4 mg/dL (8.6-10.3); Carbon Dioxide 25 mEq/L (23-29); Chloride 104 mEq/L (98-107); Glucose 111 mg/dL (70-105); Magnesium 2.1 mg/dL (1.6-2.6); Osmolality,Calculated 290 (280-300); Phosphorous 3.7 mg/dL (2.7-4.5); Potassium 4.3 mEq/L (3.5-5.1); Sodium 137 mEq/L (136-145); eGFR For Non-African Americans > 60 (> 60)
[2018-04-18] MEDS: Budesonide/Formoterol 160/4.5 1 PUFF INH IH SCH ×2 (07:32→20:01)
[2018-04-18] MEDS: Tiotropium 18 MCG inhalation IH SCH (07:33)
[2018-04-18] MEDS: *HR* HYDROmorphone 20 MG/20 ML PCA IVC PRN ×2 (08:30→19:53)
[2018-04-18] MEDS: Fluconazole 200 MG/100 ML 200 MG/100 ML BAG IVPB SCH (09:25)
[2018-04-18] MEDS: Levofloxacin 750 MG/150 ML 750 MG/150 ML BAG IVPB SCH (09:26)
[2018-04-18] MEDS: Pantoprazole 40 MG VIAL IVP SCH (09:27)
[2018-04-18] MEDS: Insulin DETEMIR 100 UNIT/ML X5UNITS SQ SCH (09:27)
--- NOTE | 2018-04-18 09:35 | Infectious Disease Progress No ---
Date of Encounter: 04/18/18 Time of Encounter: 09:15 - Assessment and Plan (1) Sepsis Current Visit: Yes Status: Acute The patient had 2 sepsis criteria. Likely secondary to acute diverticulitis with perforated sigmoid colon and pericolonic abscess. Improved. The patient has been afebrile. He does continue to have some intermittent tachycardia. He continues to have worsening leukocytosis. No blood cultures drawn on admission. Recommendations: - Continue to trend WBC daily. - Continue Levaquin 750mg IV daily. - Continue Flagyl 500mg IV TID. - Continue fluconazole 200mg IV daily. - Duration of treatment depends on the clinical picture. - Monitor renal and liver function and dose-adjust antibiotics. - Surgical wound care, diet, and activity restrictions per the surgery team. Qualifiers: Sepsis type: sepsis due to unspecified organism Qualified Code(s): A41.9 - Sepsis, unspecified organism (2) Pericolonic abscess due to diverticulitis Current Visit: Yes Status: Acute CT of the abdomen and pelvis 04/09/18 showed acute sigmoid diverticulitis with an adjacent pericolonic abscess. Status post CT-guided drain placement 04/10/18 with 30ml pus removed. Cultures positive for E. coli and P. mirabilis. Repeat CT of the abdomen and pelvis 04/14/18 showed new fluid collections in the right pelvis and RLQ. Status post exploratory celiotomy with primary resection of the sigmoid colon with stapled colocolonic anastomosis, intraoperative rigid sigmoidoscopy, and incidental appendectomy 04/15/[address] Valera. No additional cultures were obtained intra-op. (3) Acute diverticulitis Current Visit: Yes Status: Acute (4) Urinary retention Current Visit: Yes Status: Acute Willingham management per the primary team. (5) Diabetes Current Visit: Yes Status: Acute Strict glucose control. 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 Not sure if he had hives or angioedema. Sulfa allergies had lesions in his mouth. (Tobias Tang?) - Subjective Interval history: Patient seen and examined. No acute events noted overnight. Patient resting in bed, appears uncomfortable, but states that he feels better than yesterday. He does not answer specific review of systems questions, but just states "I feel better than yesterday." Per his at the bedside, the patient appears to have less pain this morning. He does not show any signs of shortness of breath or cough. He has not been complaining of any nausea or vomiting. Per nursing, the patient sat up in the bedside chair and was just assisted back to bed. Infect Dis PN-Objective Data - Labs CBC & Chem 7: 04/19/18 05:19 04/19/18 05:19 Labs: Laboratory Results - last 24 hr 04/16/18 04/17/18 04/17/18 23:52 01:30 04:00 WBC 19.5 H RBC 3.09 L Hgb 9.5 L Hct 28.8 L MCV 93.2 MCH 30.7 MCHC 33.0 RDW 14.7 H Plt Count 333 MPV 10.3 Immature Gran % 1.6 Seg Neutrophils % 77.9 Lymphocytes % 8.6 Monocytes % 10.5 Eosinophils % 1.0 Basophils % 0.4 Neutrophils # 15.2 H Lymphocytes # 1.7 Monocytes # 2.1 H Eosinophils # 0.2 Basophils # 0.1 Nucleated RBCs/100 WBC Sodium Potassium Chloride Carbon Dioxide BUN Creatinine Est GFR ( Amer) Est GFR (Non-Af Amer) BUN/Creatinine Ratio Glucose POC Glucose 152 H 131 H Calculated Osmolality Calcium Phosphorus Magnesium Total Bilirubin AST ALT Alkaline Phosphatase Serum Total Protein Albumin Globulin Albumin/Globulin Ratio 04/17/18 04/17/18 04/17/18 04:00 04:22 07:58 WBC RBC Hgb Hct MCV MCH MCHC RDW Plt Count MPV Immature Gran % Seg Neutrophils % Lymphocytes % Monocytes % Eosinophils % Basophils % Neutrophils # Lymphocytes # Monocytes # Eosinophils # Basophils # Nucleated RBCs/100 WBC Sodium 140 Potassium 3.9 Chloride 105 Carbon Dioxide 28 BUN 25 H Creatinine 0.69 L Est GFR ( Amer) > 60 Est GFR (Non-Af Amer) > 60 BUN/Creatinine Ratio 36 H Glucose 116 H POC Glucose 153 H 135 H Calculated Osmolality 295 Calcium 8.0 L Phosphorus 3.3 Magnesium 1.9 Total Bilirubin 0.3 AST 11 L ALT 16 Alkaline Phosphatase 45 Serum Total Protein 4.9 L Albumin 2.5 L Globulin 2.4 Albumin/Globulin Ratio 1.0 L 04/17/18 04/17/18 04/18/18 12:02 16:29 04:22 WBC RBC Hgb Hct MCV MCH MCHC RDW Plt Count MPV Immature Gran % Seg Neutrophils % Lymphocytes % Monocytes % Eosinophils % Basophils % Neutrophils # Lymphocytes # Monocytes # Eosinophils # Basophils # Nucleated RBCs/100 WBC Sodium 137 Potassium 4.3 Chloride 104 Carbon Dioxide 25 BUN 27 H Creatinine 0.74 Est GFR ( Amer) > 60 Est GFR (Non-Af Amer) > 60 BUN/Creatinine Ratio 36 H Glucose 111 H POC Glucose 133 H 130 H Calculated Osmolality 290 Calcium 8.4 L Phosphorus 3.7 Magnesium 2.1 Total Bilirubin AST ALT Alkaline Phosphatase Serum Total Protein Albumin Globulin Albumin/Globulin Ratio 04/18/18 04:22 WBC 22.0 H RBC 3.29 L Hgb 10.0 L Hct 31.2 L MCV 94.8 MCH 30.4 MCHC 32.1 RDW 14.9 H Plt Count 399 MPV 10.3 Immature Gran % 2.7 Seg Neutrophils % 75.6 Lymphocytes % 9.5 Monocytes % 10.1 Eosinophils % 1.6 Basophils % 0.5 Neutrophils # 16.6 H Lymphocytes # 2.1 Monocytes # 2.2 H Eosinophils # 0.4 Basophils # 0.1 Nucleated RBCs/100 WBC 0.1 H Sodium Potassium Chloride Carbon Dioxide BUN Creatinine Est GFR ( Amer) Est GFR (Non-Af Amer) BUN/Creatinine Ratio Glucose POC Glucose Calculated Osmolality Calcium Phosphorus Magnesium Total Bilirubin AST ALT Alkaline Phosphatase Serum Total Protein Albumin Globulin Albumin/Globulin Ratio Cultures: Cultures 04/10/18 11:14 Anaerobic Culture - Final Other-Specify in Comments No anaerobes were recovered. 04/14/18 18:45 Sputum Culture - Final Sputum 04/10/18 11:14 Body Fluid Culture - Final Other-Specify in Comments Escherichia coli Proteus mirabilis Serology 04/09/18 Range/Units 21:17 Urine Color Yellow (Yellow) Urine Clarity Cloudy A (Clear) Urine pH 7.5 (5.0-8.0) pH Units Ur Specific [place] 1.013 (1.010-1.025) Urine Protein Negative (Neg-Trace) mg/dL Urine Glucose (UA) Normal (Normal) mg/dL Urine Ketones Negative (Negative) mg/dL Urine Blood Negative (Negative) Urine Nitrite Negative (Negative) Urine Bilirubin Negative (Negative) Urine Urobilinogen Normal (Normal) mg/dL Ur Leukocyte Esterase Negative (Negative) Urine Microscopic RBC 0-3 (0-3) per hpf Urine Microscopic WBC 0-3 (0-3) per hpf Ur Squamous Epith Cells Few (None-Few) per lpf Urine Bacteria None Seen (None-Few) per hpf Hyaline Casts None Seen (None-Few) per lpf Ur Culture Indicated? NO (NO) Exam - Constitutional Vitals: Temp Pulse Resp BP Pulse Ox 99.1 F 99 17 112/70 95 04/18/18 06:36 04/18/18 06:36 04/18/18 07:37 04/18/18 06:36 04/18/18 07:37 General appearance: average body habitus, cooperative, mild distress - Head Head exam: Present: atraumatic, normal inspection, normocephalic - Eye Eye exam: Present: EOMI, normal appearance, PERRL Pupils: Present: normal accommodation - ENT ENT exam: Present: mucous membranes dry - Neck Neck exam: Present: normal inspection - Respiratory Respiratory exam: Present: CTAB. Absent: rales, respiratory distress, rhonchi, wheezes - Cardiovascular Cardiovascular exam: Present: RRR, +S1, +S2 - GI/Abdominal GI/Abdominal exam: Present: normal bowel sounds, soft, tenderness (Generalized). Absent: distended Additional comments: Midline abdominal incision open to air with eliane intact. Wound edges are well approximated without drainage, redness, or fluctuance noted. Willingham catheter remains patent draining clear yellow urine. - Extremities Exam Extremities exam: Present: normal inspection. Absent: joint swelling, pedal edema, tenderness - Neurological Exam Neurological exam: Present: alert, oriented X3, no focal deficits - Psychiatric Psychiatric exam: Present: normal affect, normal mood - Skin Skin exam: Present: dry, intact, normal color, warm - Additional findings Additional findings: PICC line noted to the left upper extremity with transparent dressing clean, dry, and intact. No erythema, warmth, or tenderness noted at the insertion site. - VTE Documentation of Mechanical Device: Intermittent pneumatic compression device Consult Discharge Plan - Plan Referrals: Peter Valera MD [Non-Partnered Physician] - Ammon Maradiaga DO [Primary Care Provider] - - Attending Attestation I examined this patient and my medical decision-making was reviewed with the Resident Physician. I agree with the documented findings, disposition and treatment plan as described except to the extent set forth below.
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
--- NOTE | 2018-04-18 15:51 | General Surgery Progress Note ---
Date of Encounter: 04/18/18 Time of Encounter: 15:41 Subjective Patient reports: feels better, pain is less Narrative: General Surgery -POD #3 Patient feeling better, indicates pain is less. Patient much more animated and voicing no new complaints Maximum temperature 99.3; hemodynamically stable with a pulse 87 and 90, respirations 16, blood pressure 103/68 to 124/75. Lungs: Clear bilaterally; no abdominal pain with deep inspiration Cardiac: Tachycardia noted this morning but none since 0400 hrs. Abdomen: Soft, minimal tenderness. The tenderness noted left lower quadrant yesterday is not obvious today No obvious intra-abdominal masses, no rebound. Active bowel sounds. No flatus or BM. 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 Platelet count 399,000 Neutrophils have increased to 16.6, monocytes 2.2. Electrolytes within normal limits; BUN 27 (increased from 25 yesterday); creatinine 0.74. Accu-Cheks: 130 to 153 Protein still completed at 4.9, albumin 2.5 - currently on TPN Impression: Postoperative day #3, status post primary sigmoid colectomy with stapled colocolonic anastomosis and incidental appendectomy for acute perforated sigmoid diverticulitis with pericolic and pelvic abscess Increasing leukocytosis concerning but the patient afebrile and remains hemodynamically stable. Prior complaints of abdominal pain are diminished. Awaiting return of bowel function to allow enteral nutrition Internal entero-nutrition as possible, patient will continue to require TPN Plan: Awaiting intraoperative pathology Awaiting return of bowel function until then TPN for caloric and protein needs Continue to monitor labs with attention to leukocytosis Continue IV antibiotics. 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 Discussed patient's care with Ada Morrison - will accept patient transfer to my service. Objective Vital Signs - Last 8 Hours Temp Pulse Resp BP Pulse Ox 04/18/18 14:51 98.6 F 87 16 124/75 94 04/18/18 11:20 16 95 04/18/18 10:46 98.9 F 90 16 103/68 95 Intake and Output 04/17/18 04/18/18 04/18/18 23:59 07:59 15:59 Intake Total 536 / 536 658 / 658 350 / 350 Output Total 390 / 390 750 / 750 Balance 536 / 536 268 / 268 -400 / -400 Intake: IV Fluids 300 / 300 350 / 350 350 / 350 Intralipid 20% 250 ML @ 21 mls/ 250 / 250 hr IVPB DAILY@1700 [facility] Rx#: [id number] Diflucan Premix 200 MG/100 ML 100 / 100 200 mg In 100 ml @ 100 mls/hr IVPB DAILY [facility] Rx#:[id number] Diflucan Premix 400 MG/200 ML 200 / 200 400 mg In 200 ml @ 200 mls/hr IVPB ONCE ONE Rx#:[id number] Levaquin Premix 750mg/150 mL 150 / 150 750 mg In 150 ml @ 100 mls/hr IVPB DAILY [facility] Rx#:[id number] Flagyl Premix 500 MG/100 ML 500 100 / 100 100 / 100 100 / 100 mg In 100 ml @ 100 mls/hr IVPB Q8HR [facility] Rx#:[id number] Oral 0 / 0 0 / 0 Intake, Autotransfusion Amount 236 / 236 308 / 308 Output: Catheter 390 / 390 750 / 750 Other: Meal NPO Lunch Percent of Meal Consumed 0% Weight 73.4 kg Blood Glucose* 173 141 173 Patient Weight 04/18/18 23:59 Weight 73.4 kg - Labs 04/18/18 04:22 04/18/18 04:22 Diabetes panel 04/18/18 Range/Units 04:22 Sodium 137 (136-145) mEq/L Potassium 4.3 (3.5-5.1) mEq/L Chloride 104 (98-107) mEq/L Carbon Dioxide 25 (23-29) mEq/L BUN 27 H (8-23) mg/dL Creatinine 0.74 (0.70-1.30) mg/dL Glucose 111 H (70-105) mg/dL Calcium 8.4 L (8.6-10.3) mg/dL Calcium panel 04/18/18 Range/Units 04:22 Calcium 8.4 L (8.6-10.3) mg/dL Phosphorus 3.7 (2.7-4.5) mg/dL Pituitary panel 04/18/18 Range/Units 04:22 Sodium 137 (136-145) mEq/L Potassium 4.3 (3.5-5.1) mEq/L Chloride 104 (98-107) mEq/L Carbon Dioxide 25 (23-29) mEq/L BUN 27 H (8-23) mg/dL Creatinine 0.74 (0.70-1.30) mg/dL Glucose 111 H (70-105) mg/dL Calcium 8.4 L (8.6-10.3) mg/dL Adrenal panel 04/18/18 Range/Units 04:22 Sodium 137 (136-145) mEq/L Potassium 4.3 (3.5-5.1) mEq/L Chloride 104 (98-107) mEq/L Carbon Dioxide 25 (23-29) mEq/L BUN 27 H (8-23) mg/dL Creatinine 0.74 (0.70-1.30) mg/dL Glucose 111 H (70-105) mg/dL Calcium 8.4 L (8.6-10.3) mg/dL - VTE Documentation of Mechanical Device: Intermittent pneumatic compression device Consult Discharge Plan - Plan Referrals: Peter Valera MD [Non-Partnered Physician] - Ammon Maradiaga DO [Primary Care Provider] -
[2018-04-18] MEDS ORDERED: Clinimix E 5%-15% SOLUTION 2,000 ML with MVI, adult with vitamin K 10 ML IVC SCH (17:00)
[2018-04-18] MEDS: Ringers Solution, Lactated 1,000 ML IVC SCH (17:19)
[2018-04-18] MEDS: *HR* Heparin 5,000 UNIT/ML VIAL SQ SCH (17:22)
[2018-04-19] MEDS: Insulin LISPRO 300 UNITS/3 ML VIAL SQ SCH ×6 (01:36→21:31)
[2018-04-19] MEDS: Albuterol 2.5 MG/3 ML NEBULIZER IH SCH ×6 (04:14→23:54)
[2018-04-19] MEDS: *HR* Heparin 5,000 UNIT/ML VIAL SQ SCH ×2 (05:24→17:10)
[2018-04-19 05:39] LABS: Basophils # 0.1 K/mcL (0.0-0.2); Basophils % 0.5 %; Eosinophils # 0.3 K/mcL (0.0-0.6); Eosinophils % 1.7 %; Hemoglobin 9.4 g/dL (12.9-16.9); Immature Granulocytes % 2.9 % (0-4); Lymphocytes # 1.9 K/mcL (0.6-4.6); Lymphocytes % 10.4 %; Mean Corpuscular HGB Conc 32.4 g/dL (31.6-35.5); Mean Corpuscular Hemoglobin 30.3 pg (28.0-33.3); Mean Corpuscular Volume 93.5 fL (83.0-100.0); Mean Platelet Volume 10.6 fL (9.4-12.4); Monocytes # 1.5 K/mcL (0.0-1.3); Monocytes % 8.2 %; Neutrophils # 13.9 K/mcL (1.6-8.9); Platelet Count 406 K/mcL (140-400); Red Cell Distribution Width 14.6 % (11.5-14.5); Segmented Neutrophils % 76.3 %
[2018-04-19 05:54] LABS: BUN/Creatinine Ratio 30 (6-26); Blood Urea Nitrogen 19 mg/dL (8-23); Calcium 8.3 mg/dL (8.6-10.3); Carbon Dioxide 28 mEq/L (23-29); Chloride 103 mEq/L (98-107); Glucose 114 mg/dL (70-105); Osmolality,Calculated 285 (280-300); Sodium 136 mEq/L (136-145); eGFR For Non-African Americans > 60 (> 60)
[2018-04-19] MEDS: Budesonide/Formoterol 160/4.5 1 PUFF INH IH SCH ×2 (07:42→20:03)
[2018-04-19] MEDS: Tiotropium 18 MCG inhalation IH SCH (07:44)
--- NOTE | 2018-04-19 09:50 | Infectious Disease Progress No ---
Date of Encounter: 04/19/18 Time of Encounter: 09:48 - Assessment and Plan (1) Sepsis Current Visit: Yes Status: Acute The patient had 2 sepsis criteria. Likely secondary to acute diverticulitis with perforated sigmoid colon and pericolonic abscess. Improved overall, but febrile overnight with Tmax 100.6. Tachycardia and leukocytosis improved. No blood cultures drawn on admission. Recommendations: - Continue to trend WBC daily. - Get blood cultures x 2 sets. - Get CXR. - Continue Levaquin 750mg IV daily. - Continue Flagyl 500mg IV TID. - Continue fluconazole 200mg IV daily. - Duration of treatment depends on the clinical picture. - Monitor renal and liver function and dose-adjust antibiotics. - Surgical wound care, diet, and activity restrictions per the surgery team. Qualifiers: Sepsis type: sepsis due to unspecified organism Qualified Code(s): A41.9 - Sepsis, unspecified organism (2) Pericolonic abscess due to diverticulitis Current Visit: Yes Status: Acute CT of the abdomen and pelvis 04/09/18 showed acute sigmoid diverticulitis with an adjacent pericolonic abscess. Status post CT-guided drain placement 04/10/18 with 30ml pus removed. Cultures positive for E. coli and P. mirabilis. Repeat CT of the abdomen and pelvis 04/14/18 showed new fluid collections in the right pelvis and RLQ. Status post exploratory celiotomy with primary resection of the sigmoid colon with stapled colocolonic anastomosis, intraoperative rigid sigmoidoscopy, and incidental appendectomy 04/15/[address] Valera. No additional cultures were obtained intra-op. (3) Acute diverticulitis Current Visit: Yes Status: Acute (4) Urinary retention Current Visit: Yes Status: Acute Willingham management per the primary team. (5) Diabetes Current Visit: Yes Status: Acute Strict glucose control. Qualifiers: Diabetes mellitus type: type 2 Diabetes mellitus intermodal dispatcher insulin use: unspecified penitentiary insulin use status Diabetes mellitus complication status: without complication Qualified Code(s): E11.9 - Type 2 diabetes mellitus without complications (6) Allergy to multiple antibiotics Current Visit: Yes Status: Acute Penicillin allergy about 10 years ago he said he had burning everywhere. Not sure if he had hives or angioedema. Sulfa allergies had lesions in his mouth. (Tobias Tang?) (7) Dyspnea Current Visit: Yes Status: Acute Etiology unclear. Get CXR. Qualifiers: Dyspnea type: shortness of breath Qualified Code(s): R06.02 - Shortness of breath; R06.00 - Dyspnea, unspecified; R06.01 - Orthopnea - Subjective Interval history: Patient seen and examined. Febrile overnight with Tmax 100.6. Patient resting in bed, appears more comfortable today. Reports abdominal pain with movement or cough. Reports shortness of breath, worse with exertion, and cough productive of clear sputum. Denies nausea or vomiting. Denies flatus or stooling. Willingham catheter remains patent. Denies oral thrush or skin lesions. Infect Dis PN-Objective Data - Labs CBC & Chem 7: 04/19/18 05:19 04/19/18 05:19 Labs: Laboratory Results - last 24 hr 04/17/18 04/18/18 04/18/18 21:27 00:42 05:20 WBC RBC Hgb Hct MCV MCH MCHC RDW Plt Count MPV Immature Gran % Seg Neutrophils % Lymphocytes % Monocytes % Eosinophils % Basophils % Neutrophils # Lymphocytes # Monocytes # Eosinophils # Basophils # Sodium Potassium Chloride Carbon Dioxide BUN Creatinine Est GFR ( Amer) Est GFR (Non-Af Amer) BUN/Creatinine Ratio Glucose POC Glucose 173 H 203 H 151 H Calculated Osmolality Calcium Prealbumin 04/18/18 04/18/18 04/18/18 07:27 10:54 20:27 WBC RBC Hgb Hct MCV MCH MCHC RDW Plt Count MPV Immature Gran % Seg Neutrophils % Lymphocytes % Monocytes % Eosinophils % Basophils % Neutrophils # Lymphocytes # Monocytes # Eosinophils # Basophils # Sodium Potassium Chloride Carbon Dioxide BUN Creatinine Est GFR ( Amer) Est GFR (Non-Af Amer) BUN/Creatinine Ratio Glucose POC Glucose 141 H 173 H 127 H Calculated Osmolality Calcium Prealbumin 04/19/18 04/19/18 04/19/18 05:19 05:19 05:19 WBC 18.2 H RBC 3.10 L Hgb 9.4 L Hct 29.0 L MCV 93.5 MCH 30.3 MCHC 32.4 RDW 14.6 H Plt Count 406 H MPV 10.6 Immature Gran % 2.9 Seg Neutrophils % 76.3 Lymphocytes % 10.4 Monocytes % 8.2 Eosinophils % 1.7 Basophils % 0.5 Neutrophils # 13.9 H Lymphocytes # 1.9 Monocytes # 1.5 H Eosinophils # 0.3 Basophils # 0.1 Sodium 136 Potassium 4.0 Chloride 103 Carbon Dioxide 28 BUN 19 Creatinine 0.64 L Est GFR ( Amer) > 60 Est GFR (Non-Af Amer) > 60 BUN/Creatinine Ratio 30 H Glucose 114 H POC Glucose Calculated Osmolality 285 Calcium 8.3 L Prealbumin 12.3 L Cultures: Cultures 04/10/18 11:14 Anaerobic Culture - Final Other-Specify in Comments No anaerobes were recovered. 04/14/18 18:45 Sputum Culture - Final Sputum 04/10/18 11:14 Body Fluid Culture - Final Other-Specify in Comments Escherichia coli Proteus mirabilis Serology 04/09/18 Range/Units 21:17 Urine Color Yellow (Yellow) Urine Clarity Cloudy A (Clear) Urine pH 7.5 (5.0-8.0) pH Units Ur Specific [place] 1.013 (1.010-1.025) Urine Protein Negative (Neg-Trace) mg/dL Urine Glucose (UA) Normal (Normal) mg/dL Urine Ketones Negative (Negative) mg/dL Urine Blood Negative (Negative) Urine Nitrite Negative (Negative) Urine Bilirubin Negative (Negative) Urine Urobilinogen Normal (Normal) mg/dL Ur Leukocyte Esterase Negative (Negative) Urine Microscopic RBC 0-3 (0-3) per hpf Urine Microscopic WBC 0-3 (0-3) per hpf Ur Squamous Epith Cells Few (None-Few) per lpf Urine Bacteria None Seen (None-Few) per hpf Hyaline Casts None Seen (None-Few) per lpf Ur Culture Indicated? NO (NO) Exam - Constitutional Vitals: Temp Pulse Resp BP Pulse Ox 98.9 F 85 15 103/57 94 04/19/18 06:42 04/19/18 06:42 04/19/18 07:45 04/19/18 06:42 04/19/18 07:45 General appearance: average body habitus, cooperative, no acute distress - Head Head exam: Present: atraumatic, normal inspection, normocephalic - Eye Eye exam: Present: EOMI, normal appearance, PERRL Pupils: Present: normal accommodation - ENT ENT exam: Present: mucous membranes dry - Neck Neck exam: Present: normal inspection - Respiratory Respiratory exam: Present: rhonchi (throughout). Absent: rales, wheezes - Cardiovascular Cardiovascular exam: Present: RRR, +S1, +S2 - GI/Abdominal GI/Abdominal exam: Present: distended, normal bowel sounds, soft, tenderness (generalized) Additional comments: Midline abdominal incision RONALDO with eliane intact and wound edges well- approximated. Mild erythema and warmth noted to the surgical incision. No drainage noted. Willingham catheter remains patent draining clear yellow urine. - Extremities Exam Extremities exam: Present: normal inspection. Absent: joint swelling, pedal edema, tenderness - Neurological Exam Neurological exam: Present: alert, oriented X3, no focal deficits - Psychiatric Psychiatric exam: Present: normal affect, normal mood - Skin Skin exam: Present: dry, intact, normal color, warm - Additional findings Additional findings: PICC line noted to the LUE with transparent dressing C/D/I. No erythema, warmth, tenderness, or drainage noted at the insertion site. - VTE Documentation of Mechanical Device: Intermittent pneumatic compression device Consult Discharge Plan - Plan Referrals: Peter Valera MD [Non-Partnered Physician] - Ammon Maradiaga DO [Primary Care Provider] - - Attending Attestation I examined this patient and my medical decision-making was reviewed with the Resident Physician. I agree with the documented findings, disposition and treatment plan as described except to the extent set forth below.
[2018-04-19] MEDS: MetroNIDAZOLE 500 MG/100 ML 500 MG/100 ML BAG IVPB SCH ×2 (09:56→17:13)
[2018-04-19] MEDS: Levofloxacin 750 MG/150 ML 750 MG/150 ML BAG IVPB SCH (09:58)
[2018-04-19] MEDS: Fluconazole 200 MG/100 ML 200 MG/100 ML BAG IVPB SCH (09:59)
[2018-04-19] MEDS: Insulin DETEMIR 100 UNIT/ML X5UNITS SQ SCH (10:00)
[2018-04-19] MEDS: Pantoprazole 40 MG VIAL IVP SCH (10:02)
[2018-04-19] MEDS: *HR* HYDROmorphone 20 MG/20 ML PCA IVC PRN (13:40)
--- NOTE | 2018-04-19 15:07 | General Surgery Progress Note ---
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 Hemodynamically stable - pulse 85-92; respirations 15, Blood pressure 106/88 Lungs: Clear to auscultation. Chest x-ray completed today essentially unchanged from prior imaging 04/14/18 Abdomen: Soft, minimal tenderness. No obvious intra-abdominal masses, no rebound. Tenderness slightly more pronounced in the right lower quadrant whereas 2 days ago was more left lower quadrant. Active bowel sounds but no flatus or BM. Incision intact, clean and dry and healing well. Urine output approximately 1740 mL for calendar day 04/18/18; 2900 mL so far today Operative pathology: Appendix with acute and chronic serositis and focal serrated epithelial changes consistent with sessile serrated adenoma. The sigmoid colon demonstrates diverticular disease with diverticulosis, acute and chronic serositis and fibrinous purulent serosal exudate. No mention of the clinical diagnosis of perforation Labs: White count slightly improved 18.2 (previously 22.0) hemoglobin 9.4 with hematocrit 29.0. Platelet count 409,000. Differential showing diminished neutrophils 13.9 (previously 16.6) monocytes also improved to 1.5. Electrolytes, BUN, creatinine within normal limits Prealbumin 12.3- discussed with dietary; TPN is at goal rate. Impression: Postoperative day #4 - status post primary resection sigmoid colon with stapled colocolonic anastomosis and incidental appendectomy. Path pathology results available for review. The results are noted and recorded above. Status appears to be improved with diminished leukocytosis; dynamic stability. Plan: Continue current IV antibiotics Maintain nothing by mouth pending return of effective bowel function. Continue TPN to provide nutritional needs until enteral route available Maintain Willingham for accurate I's and O's as well as to address the significant urine output without requiring the patient to repeatedly get out of bed. Urine output reflective of the significant IV fluids required, including TPN, RATE SUPERVISOR and IV antibiotics. Continue to monitor CBC and other labs as appropriate. Objective Vital Signs - Last 8 Hours Temp Pulse Resp BP Pulse Ox 04/19/18 11:15 98.0 F 92 15 106/68 96 04/19/18 10:59 15 94 04/19/18 07:45 15 94 Intake and Output 04/18/18 04/19/18 04/19/18 23:59 07:59 15:59 Intake Total 1100 / 1100 350 / 350 350 / 350 Output Total 600 / 600 1800 / 1800 1100 / 1100 Balance 500 / 500 -1450 / -1450 -750 / -750 Intake: IV Fluids 1100 / 1100 350 / 350 350 / 350 Lactated Ringers 1,000 ML @ 25 1000 / 1000 mls/hr IVC .Q24H [facility] Rx#: [id number] Intralipid 20% 250 ML @ 21 mls/ 250 / 250 hr IVPB DAILY@1700 [facility] Rx#: [id number] Diflucan Premix 200 MG/100 ML 100 / 100 200 mg In 100 ml @ 100 mls/hr IVPB DAILY [facility] Rx#:[id number] Levaquin Premix 750mg/150 mL 150 / 150 750 mg In 150 ml @ 100 mls/hr IVPB DAILY [facility] Rx#:[id number] Flagyl Premix 500 MG/100 ML 500 100 / 100 100 / 100 100 / 100 mg In 100 ml @ 100 mls/hr IVPB Q8HR [facility] Rx#:[id number] Oral 0 / 0 0 / 0 Output: Catheter 600 / 600 1800 / 1800 1100 / 1100 Other: Meal NPO DINNER NPO # Bowel Movements 0 0 Blood Glucose* 127 198 227 - Labs 04/19/18 05:19 04/19/18 05:19 Diabetes panel 04/19/18 Range/Units 05:19 Sodium 136 (136-145) mEq/L Potassium 4.0 (3.5-5.1) mEq/L Chloride 103 (98-107) mEq/L Carbon Dioxide 28 (23-29) mEq/L BUN 19 (8-23) mg/dL Creatinine 0.64 L (0.70-1.30) mg/dL Glucose 114 H (70-105) mg/dL Calcium 8.3 L (8.6-10.3) mg/dL Calcium panel 04/19/18 Range/Units 05:19 Calcium 8.3 L (8.6-10.3) mg/dL Pituitary panel 04/19/18 Range/Units 05:19 Sodium 136 (136-145) mEq/L Potassium 4.0 (3.5-5.1) mEq/L Chloride 103 (98-107) mEq/L Carbon Dioxide 28 (23-29) mEq/L BUN 19 (8-23) mg/dL Creatinine 0.64 L (0.70-1.30) mg/dL Glucose 114 H (70-105) mg/dL Calcium 8.3 L (8.6-10.3) mg/dL Adrenal panel 04/19/18 Range/Units 05:19 Sodium 136 (136-145) mEq/L Potassium 4.0 (3.5-5.1) mEq/L Chloride 103 (98-107) mEq/L Carbon Dioxide 28 (23-29) mEq/L BUN 19 (8-23) mg/dL Creatinine 0.64 L (0.70-1.30) mg/dL Glucose 114 H (70-105) mg/dL Calcium 8.3 L (8.6-10.3) mg/dL - VTE Documentation of Mechanical Device: Intermittent pneumatic compression device Consult Discharge Plan - Plan Referrals: Peter Valera MD [Non-Partnered Physician] - Ammon Maradiaga DO [Primary Care Provider] -
[2018-04-19] MEDS ORDERED: Clinimix E 5%-15% SOLUTION 2,000 ML with MVI, adult with vitamin K 10 ML IVC SCH (17:00)
[2018-04-20] MEDS: MetroNIDAZOLE 500 MG/100 ML 500 MG/100 ML BAG IVPB SCH ×3 (00:32→16:26)
[2018-04-20] MEDS: Insulin LISPRO 300 UNITS/3 ML VIAL SQ SCH ×6 (01:18→21:52)
[2018-04-20] MEDS: Albuterol 2.5 MG/3 ML NEBULIZER IH SCH ×6 (03:47→23:49)
[2018-04-20 05:28] LABS: Basophils # 0.1 K/mcL (0.0-0.2); Basophils % 0.6 %; Eosinophils # 0.3 K/mcL (0.0-0.6); Eosinophils % 2.2 %; Hematocrit 29.6 % (37.5-50.1); Hemoglobin 9.5 g/dL (12.9-16.9); Immature Granulocytes % 3.7 % (0-4); Lymphocytes # 1.4 K/mcL (0.6-4.6); Lymphocytes % 8.6 %; Mean Corpuscular HGB Conc 32.1 g/dL (31.6-35.5); Mean Corpuscular Hemoglobin 30.1 pg (28.0-33.3); Mean Corpuscular Volume 93.7 fL (83.0-100.0); Mean Platelet Volume 10.1 fL (9.4-12.4); Monocytes # 1.6 K/mcL (0.0-1.3); Monocytes % 9.8 %; Neutrophils # 11.9 K/mcL (1.6-8.9); Platelet Count 452 K/mcL (140-400); Red Blood Count 3.16 M/mcL (4.19-5.50); Red Cell Distribution Width 14.6 % (11.5-14.5); Segmented Neutrophils % 75.1 %
[2018-04-20 05:44] LABS: Triglycerides 111 mg/dL (< 150)
[2018-04-20] MEDS: *HR* Heparin 5,000 UNIT/ML VIAL SQ SCH ×2 (05:44→16:52)
[2018-04-20] MEDS: Tiotropium 18 MCG inhalation IH SCH (07:32)
[2018-04-20] MEDS: Budesonide/Formoterol 160/4.5 1 PUFF INH IH SCH ×2 (07:32→21:04)
[2018-04-20] MEDS: Fluconazole 200 MG/100 ML 200 MG/100 ML BAG IVPB SCH (08:44)
[2018-04-20] MEDS: Levofloxacin 750 MG/150 ML 750 MG/150 ML BAG IVPB SCH (08:46)
[2018-04-20] MEDS: Pantoprazole 40 MG VIAL IVP SCH (08:47)
[2018-04-20] MEDS: Insulin DETEMIR 100 UNIT/ML X5UNITS SQ SCH ×2 (09:07→09:14)
[2018-04-20] MEDS: *HR* HYDROmorphone 20 MG/20 ML PCA IVC PRN (09:11)
--- NOTE | 2018-04-20 10:20 | Infectious Disease Progress No ---
Date of Encounter: 04/20/18 Time of Encounter: 09:20 - Assessment and Plan (1) Sepsis Current Visit: Yes Status: Acute The patient had 2 sepsis criteria. Likely secondary to acute diverticulitis with perforated sigmoid colon and pericolonic abscess. Improved. WBC trending down. Afebrile overnight. Tachycardia resolved. No blood cultures drawn on admission. Blood cultures drawn 04/19/18 are pending x 2 sets. Recommendations: - Continue to trend WBC daily. - Await blood culture results. - Continue Levaquin 750mg IV daily. - Continue Flagyl 500mg IV TID. - Continue fluconazole 200mg IV daily. - Duration of treatment depends on the clinical picture. - Monitor renal and liver function and dose-adjust antibiotics. - Surgical wound care, diet, and activity restrictions per the surgery team. Qualifiers: Sepsis type: sepsis due to unspecified organism Qualified Code(s): A41.9 - Sepsis, unspecified organism (2) Pericolonic abscess due to diverticulitis Current Visit: Yes Status: Acute CT of the abdomen and pelvis 04/09/18 showed acute sigmoid diverticulitis with an adjacent pericolonic abscess. Status post CT-guided drain placement 04/10/18 with 30ml pus removed. Cultures positive for E. coli and P. mirabilis. Repeat CT of the abdomen and pelvis 04/14/18 showed new fluid collections in the right pelvis and RLQ. Status post exploratory celiotomy with primary resection of the sigmoid colon with stapled colocolonic anastomosis, intraoperative rigid sigmoidoscopy, and incidental appendectomy 04/15/[address] Valera. No additional cultures were obtained intra-op. (3) Acute diverticulitis Current Visit: Yes Status: Acute (4) Urinary retention Current Visit: Yes Status: Acute Willingham management per the primary team. (5) Diabetes Current Visit: Yes Status: Acute Strict glucose control. 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 Not sure if he had hives or angioedema. Sulfa allergies had lesions in his mouth. (Tobias Tang?) (7) Dyspnea Current Visit: Yes Status: Acute Etiology unclear. Improved. CXR negative for acute process. Qualifiers: Dyspnea type: shortness of breath Qualified Code(s): R06.02 - Shortness of breath; R06.00 - Dyspnea, unspecified; R06.01 - Orthopnea - Subjective Interval history: Patient seen and examined. No acute events noted overnight. Patient resting in bed, appears more comfortable today. Reports abdominal pain with movement or cough /10. Reports shortness of breath, worse with exertion, and cough productive of clear sputum. Denies nausea or vomiting. Denies flatus or stooling. Willingham catheter remains patent. Denies oral thrush or skin lesions. Infect Dis PN-Objective Data - Labs CBC & Chem 7: 04/21/18 04:00 04/21/18 04:00 Labs: Laboratory Results - last 24 hr 04/19/18 04/19/18 04/19/18 00:16 04:29 07:08 WBC RBC Hgb Hct MCV MCH MCHC RDW Plt Count MPV Immature Gran % Seg Neutrophils % Lymphocytes % Monocytes % Eosinophils % Basophils % Neutrophils # Lymphocytes # Monocytes # Eosinophils # Basophils # POC Glucose 166 H 118 H 198 H Triglycerides 04/19/18 04/19/18 04/19/18 11:20 16:33 21:08 WBC RBC Hgb Hct MCV MCH MCHC RDW Plt Count MPV Immature Gran % Seg Neutrophils % Lymphocytes % Monocytes % Eosinophils % Basophils % Neutrophils # Lymphocytes # Monocytes # Eosinophils # Basophils # POC Glucose 227 H 141 H 179 H Triglycerides 04/20/18 04/20/18 05:00 05:00 WBC 15.8 H RBC 3.16 L Hgb 9.5 L Hct 29.6 L MCV 93.7 MCH 30.1 MCHC 32.1 RDW 14.6 H Plt Count 452 H MPV 10.1 Immature Gran % 3.7 Seg Neutrophils % 75.1 Lymphocytes % 8.6 Monocytes % 9.8 Eosinophils % 2.2 Basophils % 0.6 Neutrophils # 11.9 H Lymphocytes # 1.4 Monocytes # 1.6 H Eosinophils # 0.3 Basophils # 0.1 POC Glucose Triglycerides 111 Cultures: Cultures 04/19/18 10:07 Blood Culture - Preliminary Peripheral Venipuncture Culture is incubating and being continuously monitored for growth. Final report to follow. 04/19/18 10:07 Blood Culture - Preliminary Peripheral Venipuncture Culture is incubating and being continuously m onitored for growth. Final report to follow. 04/10/18 11:14 Anaerobic Culture - Final Other-Specify in Comments No anaerobes were recovered. 04/14/18 18:45 Sputum Culture - Final Sputum 04/10/18 11:14 Body Fluid Culture - Final Other-Specify in Comments Escherichia coli Proteus mirabilis Serology 04/09/18 Range/Units 21:17 Urine Color Yellow (Yellow) Urine Clarity Cloudy A (Clear) Urine pH 7.5 (5.0-8.0) pH Units Ur Specific [place] 1.013 (1.010-1.025) Urine Protein Negative (Neg-Trace) mg/dL Urine Glucose (UA) Normal (Normal) mg/dL Urine Ketones Negative (Negative) mg/dL Urine Blood Negative (Negative) Urine Nitrite Negative (Negative) Urine Bilirubin Negative (Negative) Urine Urobilinogen Normal (Normal) mg/dL Ur Leukocyte Esterase Negative (Negative) Urine Microscopic RBC 0-3 (0-3) per hpf Urine Microscopic WBC 0-3 (0-3) per hpf Ur Squamous Epith Cells Few (None-Few) per lpf Urine Bacteria None Seen (None-Few) per hpf Hyaline Casts None Seen (None-Few) per lpf Ur Culture Indicated? NO (NO) - Impressions Impressions Chest X-Ray 04/19/18 09:53 IMPRESSION: No acute process. D/ / Justin White MD / Justin White MD Interpreting Provider: Justin White MD Exam - Constitutional Vitals: Temp Pulse Resp BP Pulse Ox 98.3 F 84 15 130/68 95 04/20/18 06:56 04/20/18 06:56 04/20/18 06:56 04/20/18 06:56 04/20/18 06:56 General appearance: average body habitus, cooperative, no acute distress - Head Head exam: Present: atraumatic, normal inspection, normocephalic - Eye Eye exam: Present: EOMI, normal appearance, PERRL Pupils: Present: normal accommodation - ENT ENT exam: Present: mucous membranes dry - Neck Neck exam: Present: normal inspection - Respiratory Respiratory exam: Present: CTAB. Absent: rales, respiratory distress, rhonchi, wheezes - Cardiovascular Cardiovascular exam: Present: RRR, +S1, +S2 - GI/Abdominal GI/Abdominal exam: Present: distended, normal bowel sounds, soft, tenderness (generalized) Additional comments: Midline abdominal incision RONALDO with eliane intact. Wound edges well- approximated without erythema, warmth, or drainage noted. Willingham catheter noted to be draining clear yellow urine. - Extremities Exam Extremities exam: Present: normal inspection. Absent: joint swelling, pedal edema, tenderness - Neurological Exam Neurological exam: Present: alert, oriented X3, no focal deficits - Psychiatric Psychiatric exam: Present: normal affect, normal mood - Skin Skin exam: Present: dry, intact, normal color, warm - Additional findings Additional findings: PICC line noted to the LUE with transparent dressing C/D/I. - VTE Documentation of Mechanical Device: Intermittent pneumatic compression device Consult Discharge Plan - Plan Referrals: Peter Valera MD [Non-Partnered Physician] - Ammon Maradiaga DO [Primary Care Provider] - - Attending Attestation I examined this patient and my medical decision-making was reviewed with the Resident Physician. I agree with the documented findings, disposition and treatment plan as described except to the extent set forth below.
[2018-04-20 11:26] LABS: BUN/Creatinine Ratio 31 (6-26); Blood Urea Nitrogen 19 mg/dL (8-23); Calcium 8.2 mg/dL (8.6-10.3); Carbon Dioxide 27 mEq/L (23-29); Chloride 104 mEq/L (98-107); Glucose 137 mg/dL (70-105); Osmolality,Calculated 290 (280-300); Potassium 4.1 mEq/L (3.5-5.1); Sodium 138 mEq/L (136-145); eGFR For Non-African Americans > 60 (> 60)
[2018-04-20] MEDS ORDERED: Clinimix E 5%-15% SOLUTION 2,000 ML with MVI, adult with vitamin K 10 ML IVC SCH (17:00)
--- NOTE | 2018-04-20 21:32 | General Surgery Progress Note ---
Date of Encounter: 04/20/18 Time of Encounter: 17:10 Subjective Patient reports: feels better, pain is less Narrative: General Surgery POD #5 - this is a delayed note Patient feeling better, describes diminished abdominal pain. Afebrile, maximum temperature 99.4 overnight; pulse 88, respirations 16, blood pressure stable at 115/71 Lungs: Clear no obvious abdominal pain on deep inspiration Cardiac: Regular rate, no appreciable murmurs Abdomen: Soft, minimal quentin-incisional tenderness. The midline incision is intact, healing well. No detected fascial defect Active bowel sounds are audible but there is been no flatus or BM. Urine output: 2900 ML for calendar day 04/19/18; 4150 mL so far today Laboratories: White count continues to trend downward, currently 15.8; neutrophils also diminished to 11.9. Hemoglobin 9.5, hematocrit 29.6- stable but low. It appears to be consistent with dilution at the patient continues to receive copious IV fluid Electrolytes, BUN, creatinine stable and within normal limits. Accu-Cheks 141-227 Impression: Postoperative day #5 - status post primary resection sigmoid colon with stapled colocolonic anastomosis and incidental appendectomy. Patient has been reluctant to get out of bed; as a result of this little activity out of bed, delayed return of bowel function. Leukocytosis continues to improve as does the patient's complaints of pain. Plan: Encourage activity out of bed Continue incentive spirometry Continue present antibiotic regime or abscesses Levaquin and metronidazole) Continue TPN. Objective Vital Signs - Last 8 Hours Temp Pulse Resp BP Pulse Ox 04/20/18 21:05 16 94 04/20/18 18:40 98.5 F 88 16 115/71 93 04/20/18 16:14 16 96 04/20/18 13:52 97.8 F 85 16 126/62 96 Intake and Output 04/20/18 04/20/18 04/20/18 07:59 15:59 23:59 Intake Total 350 / 350 350 / 350 100 / 100 Output Total 1950 / 1950 400 / 400 1800 / 1800 Balance -1600 / -1600 -50 / -50 -1700 / -1700 Intake: IV Fluids 350 / 350 350 / 350 100 / 100 Intralipid 20% 250 ML @ 21 mls/ 250 / 250 hr IVPB DAILY@1700 [facility] Rx#: [id number] Diflucan Premix 200 MG/100 ML 100 / 100 200 mg In 100 ml @ 100 mls/hr IVPB DAILY [facility] Rx#:[id number] Levaquin Premix 750mg/150 mL 150 / 150 750 mg In 150 ml @ 100 mls/hr IVPB DAILY [facility] Rx#:[id number] Flagyl Premix 500 MG/100 ML 500 100 / 100 100 / 100 100 / 100 mg In 100 ml @ 100 mls/hr IVPB Q8HR [facility] Rx#:[id number] Oral 0 / 0 0 / 0 Output: Catheter 1950 / 1950 400 / 400 1800 / 1800 Other: Meal NPO NPO # Bowel Movements 0 0 Blood Glucose* 162 168 167 - Labs 04/20/18 05:00 04/20/18 05:00 Diabetes panel 04/20/18 Range/Units 05:00 Sodium 138 (136-145) mEq/L Potassium 4.1 (3.5-5.1) mEq/L Chloride 104 (98-107) mEq/L Carbon Dioxide 27 (23-29) mEq/L BUN 19 (8-23) mg/dL Creatinine 0.61 L (0.70-1.30) mg/dL Glucose 137 H (70-105) mg/dL Calcium 8.2 L (8.6-10.3) mg/dL Triglycerides 111 (< 150) mg/dL Calcium panel 04/20/18 Range/Units 05:00 Calcium 8.2 L (8.6-10.3) mg/dL Pituitary panel 04/20/18 Range/Units 05:00 Sodium 138 (136-145) mEq/L Potassium 4.1 (3.5-5.1) mEq/L Chloride 104 (98-107) mEq/L Carbon Dioxide 27 (23-29) mEq/L BUN 19 (8-23) mg/dL Creatinine 0.61 L (0.70-1.30) mg/dL Glucose 137 H (70-105) mg/dL Calcium 8.2 L (8.6-10.3) mg/dL Adrenal panel 04/20/18 Range/Units 05:00 Sodium 138 (136-145) mEq/L Potassium 4.1 (3.5-5.1) mEq/L Chloride 104 (98-107) mEq/L Carbon Dioxide 27 (23-29) mEq/L BUN 19 (8-23) mg/dL Creatinine 0.61 L (0.70-1.30) mg/dL Glucose 137 H (70-105) mg/dL Calcium 8.2 L (8.6-10.3) mg/dL - VTE Documentation of Mechanical Device: Intermittent pneumatic compression device Consult Discharge Plan - Plan Referrals: Peter Valera MD [Non-Partnered Physician] - Ammon Maradiaga DO [Primary Care Provider] -
[2018-04-21] MEDS: Insulin LISPRO 300 UNITS/3 ML VIAL SQ SCH ×6 (00:11→22:16)
[2018-04-21] MEDS: *HR* HYDROmorphone 20 MG/20 ML PCA IVC PRN (04:17)
[2018-04-21 04:23] LABS: Basophils # 0.1 K/mcL (0.0-0.2); Basophils % 0.9 %; Eosinophils # 0.4 K/mcL (0.0-0.6); Eosinophils % 2.8 %; Hematocrit 31.5 % (37.5-50.1); Hemoglobin 10.1 g/dL (12.9-16.9); Immature Granulocytes % 4.6 % (0-4); Lymphocytes # 1.4 K/mcL (0.6-4.6); Lymphocytes % 9.1 %; Mean Corpuscular HGB Conc 32.1 g/dL (31.6-35.5); Mean Corpuscular Hemoglobin 29.8 pg (28.0-33.3); Mean Corpuscular Volume 92.9 fL (83.0-100.0); Mean Platelet Volume 10.2 fL (9.4-12.4); Monocytes # 1.6 K/mcL (0.0-1.3); Monocytes % 10.2 %; Neutrophils # 11.2 K/mcL (1.6-8.9); Nucleated Red Blood Cells 0.1 /100 WBC (0); Platelet Count 511 K/mcL (140-400); Red Blood Count 3.39 M/mcL (4.19-5.50); Red Cell Distribution Width 14.5 % (11.5-14.5); Segmented Neutrophils % 72.4 %
[2018-04-21 04:36] LABS: BUN/Creatinine Ratio 30 (6-26); Blood Urea Nitrogen 20 mg/dL (8-23); Calcium 8.6 mg/dL (8.6-10.3); Carbon Dioxide 26 mEq/L (23-29); Chloride 102 mEq/L (98-107); Glucose 162 mg/dL (70-105); Osmolality,Calculated 288 (280-300); Sodium 136 mEq/L (136-145); eGFR For Non-African Americans > 60 (> 60)
[2018-04-21] MEDS: Albuterol 2.5 MG/3 ML NEBULIZER IH SCH ×7 (04:36→23:57)
[2018-04-21] MEDS: *HR* Heparin 5,000 UNIT/ML VIAL SQ SCH ×2 (05:38→17:57)
[2018-04-21] MEDS: Tiotropium 18 MCG inhalation IH SCH (07:32)
[2018-04-21] MEDS: Budesonide/Formoterol 160/4.5 1 PUFF INH IH SCH ×2 (07:32→20:31)
[2018-04-21] MEDS: MetroNIDAZOLE 500 MG/100 ML 500 MG/100 ML BAG IVPB SCH ×3 (08:13→16:11)
[2018-04-21] MEDS: Levofloxacin 750 MG/150 ML 750 MG/150 ML BAG IVPB SCH (08:15)
[2018-04-21] MEDS: Fluconazole 200 MG/100 ML 200 MG/100 ML BAG IVPB SCH (08:15)
[2018-04-21] MEDS: Pantoprazole 40 MG VIAL IVP SCH (08:38)
[2018-04-21] MEDS ORDERED: D10% in Water 500 ML IVC PRN (11:17)
--- NOTE | 2018-04-21 13:35 | General Surgery Progress Note ---
Date of Encounter: 04/21/18 Time of Encounter: 13:28 Subjective Narrative: General Surgery - POD #6 Patient complaining of cramping abdominal pain; passage of flatus. It is likely that the cramping abdominal pain is an indicator for returning bowel function Patient remains afebrile, currently 98.1, hemodynamically stable with pulse 86, respirations 16, blood pressure 144/82. Lungs: Clear Abdomen: Slightly distended; mild persistent incisional tenderness. No obvious peritoneal signs. No rebound. Active bowel sounds. Urine output: 4600 mL for the last 24 hours; 1400 mL so far today Laboratories: White count 15.4, hemoglobin 10.1 with hematocrit 35.5. Neutrophils 11.2 (previously 11.9). Monocytes unchanged at 1.6. Electrolytes, BUN, creatinine stable and within normal limits Accu-Cheks 125-180 Impression/Plan: Postoperative day #6 - status post primary resection sigmoid colon with stapled colocolonic anastomosis. Continued slow recovery. Patient has passed flatus with active bowel sounds. Will allow clear liquids Continue TPN. If he tolerates liquid diet, will convert [employer] to oral analgesics. Objective Vital Signs - Last 8 Hours Temp Pulse Resp BP Pulse Ox 04/21/18 10:30 98.1 F 86 16 144/82 97 04/21/18 07:40 98.2 F 84 18 135/76 98 04/21/18 07:32 12 94 Intake and Output 04/20/18 04/21/18 04/21/18 23:59 07:59 15:59 Intake Total 754 / 754 350 / 350 350 / 350 Output Total 2300 / 2300 800 / 800 600 / 600 Balance -1546 / -1546 -450 / -450 -250 / -250 Intake: IV Fluids 754 / 754 350 / 350 350 / 350 Clinimix E 5%-15% SOLUTION 2, 654 / 654 000 ML @ 83.3 mls/hr IVC .Q24H [facility] with M.v.i. Adult 10 ml Rx# :[id number] Intralipid 20% 250 ML @ 21 mls/ 250 / 250 hr IVPB DAILY@1700 [facility] Rx#: [id number] Diflucan Premix 200 MG/100 ML 100 / 100 200 mg In 100 ml @ 100 mls/hr IVPB DAILY [facility] Rx#:[id number] Levaquin Premix 750mg/150 mL 150 / 150 750 mg In 150 ml @ 100 mls/hr IVPB DAILY [facility] Rx#:[id number] Flagyl Premix 500 MG/100 ML 500 100 / 100 100 / 100 100 / 100 mg In 100 ml @ 100 mls/hr IVPB Q8HR [facility] Rx#:[id number] Oral 0 / 0 0 / 0 Output: Catheter 2300 / 2300 800 / 800 600 / 600 Other: Meal NPO NPO BREAKFAST # Bowel Movements 0 Weight 66.5 kg Blood Glucose* 167 180 150 Patient Weight 04/21/18 23:59 Weight 66.5 kg - Labs 04/21/18 04:00 04/21/18 04:00 Diabetes panel 04/21/18 Range/Units 04:00 Sodium 136 (136-145) mEq/L Potassium 4.0 (3.5-5.1) mEq/L Chloride 102 (98-107) mEq/L Carbon Dioxide 26 (23-29) mEq/L BUN 20 (8-23) mg/dL Creatinine 0.67 L (0.70-1.30) mg/dL Glucose 162 H (70-105) mg/dL Calcium 8.6 (8.6-10.3) mg/dL Calcium panel 04/21/18 Range/Units 04:00 Calcium 8.6 (8.6-10.3) mg/dL Pituitary panel 04/21/18 Range/Units 04:00 Sodium 136 (136-145) mEq/L Potassium 4.0 (3.5-5.1) mEq/L Chloride 102 (98-107) mEq/L Carbon Dioxide 26 (23-29) mEq/L BUN 20 (8-23) mg/dL Creatinine 0.67 L (0.70-1.30) mg/dL Glucose 162 H (70-105) mg/dL Calcium 8.6 (8.6-10.3) mg/dL Adrenal panel 04/21/18 Range/Units 04:00 Sodium 136 (136-145) mEq/L Potassium 4.0 (3.5-5.1) mEq/L Chloride 102 (98-107) mEq/L Carbon Dioxide 26 (23-29) mEq/L BUN 20 (8-23) mg/dL Creatinine 0.67 L (0.70-1.30) mg/dL Glucose 162 H (70-105) mg/dL Calcium 8.6 (8.6-10.3) mg/dL - VTE Documentation of Mechanical Device: Intermittent pneumatic compression device Consult Discharge Plan - Plan Referrals: Peter Valera MD [Non-Partnered Physician] - Ammon Maradiaga DO [Primary Care Provider] -
--- NOTE | 2018-04-21 15:05 | Infectious Disease Progress No ---
Date of Encounter: 04/21/18 Time of Encounter: 12:15 - Assessment and Plan (1) Sepsis Current Visit: Yes Status: Acute The patient had 2 sepsis criteria. Likely secondary to acute diverticulitis with perforated sigmoid colon and pericolonic abscess. Improved. WBC trending down. Afebrile overnight. Tachycardia resolved. No blood cultures drawn on admission. Blood cultures drawn 04/19/18 are NGTDx 2 sets. Recommendations: - Continue to trend WBC daily. - Await blood cultures to finalize. - Continue Levaquin 750mg IV daily. - Continue Flagyl 500mg IV TID. - Continue fluconazole 200mg IV daily. - Duration of treatment depends on the clinical picture. Recommend a total of 7 days post-op of Levaquin and Flagyl (through 04/22/18) and 7 days of fluconazole (through 04/23/18) - Monitor renal and liver function and dose-adjust antibiotics. - Surgical wound care, diet, and activity restrictions per the surgery team. - No further recommendations from the ID team. We will sign off. Please re- consult if needed. Qualifiers: Sepsis type: sepsis due to unspecified organism Qualified Code(s): A41.9 - Sepsis, unspecified organism (2) Pericolonic abscess due to diverticulitis Current Visit: Yes Status: Acute CT of the abdomen and pelvis 04/09/18 showed acute sigmoid diverticulitis with an adjacent pericolonic abscess. Status post CT-guided drain placement 04/10/18 with 30ml pus removed. Cultures positive for E. coli and P. mirabilis. Repeat CT of the abdomen and pelvis 04/14/18 showed new fluid collections in the right pelvis and RLQ. Status post exploratory celiotomy with primary resection of the sigmoid colon with stapled colocolonic anastomosis, intraoperative rigid sigmoidoscopy, and incidental appendectomy 04/15/[address] Valera. No additional cultures were obtained intra-op. (3) Acute diverticulitis Current Visit: Yes Status: Acute (4) Urinary retention Current Visit: Yes Status: Acute Willingham management per the primary team. (5) Diabetes Current Visit: Yes Status: Acute Strict glucose control. 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 Not sure if he had hives or angioedema. Sulfa allergies had lesions in his mouth. (Tobias Tang?) (7) Dyspnea Current Visit: Yes Status: Acute Etiology unclear. Improved. CXR negative for acute process. Qualifiers: Dyspnea type: shortness of breath Qualified Code(s): R06.02 - Shortness of breath; R06.00 - Dyspnea, unspecified; R06.01 - Orthopnea - Subjective Interval history: Patient seen and examined. No acute events noted overnight. Patient states he is in pain due to getting back in bed. Reports abdominal pain with movement or cough 11/20. Reports shortness of breath, worse with exertion, and cough productive of clear sputum, but states it is better today. Denies nausea or vomiting. Reports he is passing gas. Willingham catheter remains patent. Denies oral thrush or skin lesions. Infect Dis PN-Objective Data - Labs CBC & Chem 7: 04/21/18 04:00 04/21/18 04:00 Labs: Laboratory Results - last 24 hr 04/20/18 04/20/18 04/20/18 01:02 08:09 11:24 WBC RBC Hgb Hct MCV MCH MCHC RDW Plt Count MPV Immature Gran % Seg Neutrophils % Lymphocytes % Monocytes % Eosinophils % Basophils % Neutrophils # Lymphocytes # Monocytes # Eosinophils # Basophils # Nucleated RBCs/100 WBC Sodium Potassium Chloride Carbon Dioxide BUN Creatinine Est GFR ( Amer) Est GFR (Non-Af Amer) BUN/Creatinine Ratio Glucose POC Glucose 185 H 142 H 168 H Calculated Osmolality Calcium 04/20/18 04/20/18 04/21/18 16:39 20:36 00:08 WBC RBC Hgb Hct MCV MCH MCHC RDW Plt Count MPV Immature Gran % Seg Neutrophils % Lymphocytes % Monocytes % Eosinophils % Basophils % Neutrophils # Lymphocytes # Monocytes # Eosinophils # Basophils # Nucleated RBCs/100 WBC Sodium Potassium Chloride Carbon Dioxide BUN Creatinine Est GFR ( Amer) Est GFR (Non-Af Amer) BUN/Creatinine Ratio Glucose POC Glucose 118 H 167 H 125 H Calculated Osmolality Calcium 04/21/18 04/21/18 04/21/18 04:00 04:00 04:26 WBC 15.4 H RBC 3.39 L Hgb 10.1 L Hct 31.5 L MCV 92.9 MCH 29.8 MCHC 32.1 RDW 14.5 Plt Count 511 H MPV 10.2 Immature Gran % 4.6 H Seg Neutrophils % 72.4 Lymphocytes % 9.1 Monocytes % 10.2 Eosinophils % 2.8 Basophils % 0.9 Neutrophils # 11.2 H Lymphocytes # 1.4 Monocytes # 1.6 H Eosinophils # 0.4 Basophils # 0.1 Nucleated RBCs/100 WBC 0.1 H Sodium 136 Potassium 4.0 Chloride 102 Carbon Dioxide 26 BUN 20 Creatinine 0.67 L Est GFR ( Amer) > 60 Est GFR (Non-Af Amer) > 60 BUN/Creatinine Ratio 30 H Glucose 162 H POC Glucose 173 H Calculated Osmolality 288 Calcium 8.6 04/21/18 04/21/18 07:33 12:17 WBC RBC Hgb Hct MCV MCH MCHC RDW Plt Count MPV Immature Gran % Seg Neutrophils % Lymphocytes % Monocytes % Eosinophils % Basophils % Neutrophils # Lymphocytes # Monocytes # Eosinophils # Basophils # Nucleated RBCs/100 WBC Sodium Potassium Chloride Carbon Dioxide BUN Creatinine Est GFR ( Amer) Est GFR (Non-Af Amer) BUN/Creatinine Ratio Glucose POC Glucose 180 H 150 H Calculated Osmolality Calcium Cultures: Cultures 04/19/18 10:07 Blood Culture - Preliminary Peripheral Venipuncture Culture is incubating and being continuously monitored for growth. Final report to follow. 04/19/18 10:07 Blood Culture - Preliminary Peripheral Venipuncture Culture is incubating and being continuously monitored for growth. Final report to follow. 04/10/18 11:14 Anaerobic Culture - Final Other-Specify in Comments No anaerobes were recovered. 04/14/18 18:45 Sputum Culture - Final Sputum 04/10/18 11:14 Body Fluid Culture - Final Other-Specify in Comments Escherichia coli Proteus mirabilis Serology 04/09/18 Range/Units 21:17 Urine Color Yellow (Yellow) Urine Clarity Cloudy A (Clear) Urine pH 7.5 (5.0-8.0) pH Units Ur Specific [place] 1.013 (1.010-1.025) Urine Protein Negative (Neg-Trace) mg/dL Urine Glucose (UA) Normal (Normal) mg/dL Urine Ketones Negative (Negative) mg/dL Urine Blood Negative (Negative) Urine Nitrite Negative (Negative) Urine Bilirubin Negative (Negative) Urine Urobilinogen Normal (Normal) mg/dL Ur Leukocyte Esterase Negative (Negative) Urine Microscopic RBC 0-3 (0-3) per hpf Urine Microscopic WBC 0-3 (0-3) per hpf Ur Squamous Epith Cells Few (None-Few) per lpf Urine Bacteria None Seen (None-Few) per hpf Hyaline Casts None Seen (None-Few) per lpf Ur Culture Indicated? NO (NO) Exam - Constitutional Vitals: Temp Pulse Resp BP Pulse Ox 98.6 F 84 18 131/69 97 04/21/18 13:35 04/21/18 13:35 04/21/18 13:35 04/21/18 13:35 04/21/18 13:35 General appearance: average body habitus, cooperative, no acute distress - Head Head exam: Present: atraumatic, normal inspection, normocephalic - Eye Eye exam: Present: EOMI, normal appearance, PERRL Pupils: Present: normal accommodation - ENT ENT exam: Present: mucous membranes dry - Neck Neck exam: Present: normal inspection - Respiratory Respiratory exam: Present: CTAB. Absent: rales, respiratory distress, rhonchi, wheezes - Cardiovascular Cardiovascular exam: Present: RRR, +S1, +S2 - GI/Abdominal GI/Abdominal exam: Present: normal bowel sounds, soft, tenderness (generalized) Additional comments: Midline abdominal incision RONALDO with eliane intact and wound edges well- approximated. No erythema, warmth, or drainage noted. - Extremities Exam Extremities exam: Present: normal inspection. Absent: joint swelling, pedal edema, tenderness - Neurological Exam Neurological exam: Present: alert, oriented X3, no focal deficits - Psychiatric Psychiatric exam: Present: normal affect, normal mood - Skin Skin exam: Present: dry, intact, normal color, warm - Additional findings Additional findings: PICC line noted to the LUE with transparent dressing C/D/I. - VTE Documentation of Mechanical Device: Intermittent pneumatic compression device Consult Discharge Plan - Plan Referrals: Peter Valera MD [Non-Partnered Physician] - Ammon Maradiaga DO [Primary Care Provider] - - Attending Attestation I examined this patient and my medical decision-making was reviewed with the Resident Physician. I agree with the documented findings, disposition and treatment plan as described except to the extent set forth below.
[2018-04-21] MEDS ORDERED: Clinimix E 5%-15% SOLUTION 2,000 ML with MVI, adult with vitamin K 10 ML IVC SCH (17:00)
[2018-04-21] MEDS: Ringers Solution, Lactated 1,000 ML IVC SCH ×2 (22:14→22:15)
[2018-04-22] MEDS: MetroNIDAZOLE 500 MG/100 ML 500 MG/100 ML BAG IVPB SCH ×3 (00:15→16:37)
[2018-04-22] MEDS: Insulin LISPRO 300 UNITS/3 ML VIAL SQ SCH ×6 (00:16→21:03)
[2018-04-22] MEDS: *HR* HYDROmorphone 20 MG/20 ML PCA IVC PRN (01:20)
[2018-04-22] MEDS: Ringers Solution, Lactated 1,000 ML IVC SCH (04:09)
[2018-04-22] MEDS: Albuterol 2.5 MG/3 ML NEBULIZER IH SCH ×7 (04:20→23:45)
[2018-04-22 05:05] LABS: Basophils # 0.1 K/mcL (0.0-0.2); Basophils % 0.9 %; Eosinophils # 0.4 K/mcL (0.0-0.6); Eosinophils % 2.8 %; Hematocrit 32.2 % (37.5-50.1); Hemoglobin 10.3 g/dL (12.9-16.9); Immature Granulocytes % 4.9 % (0-4); Lymphocytes # 1.3 K/mcL (0.6-4.6); Mean Corpuscular Hemoglobin 29.9 pg (28.0-33.3); Mean Corpuscular Volume 93.3 fL (83.0-100.0); Mean Platelet Volume 10.3 fL (9.4-12.4); Monocytes # 1.7 K/mcL (0.0-1.3); Monocytes % 11.2 %; Neutrophils # 10.5 K/mcL (1.6-8.9); Platelet Count 490 K/mcL (140-400); Red Blood Count 3.45 M/mcL (4.19-5.50); Red Cell Distribution Width 14.6 % (11.5-14.5); Segmented Neutrophils % 71.2 %
[2018-04-22 05:21] LABS: Alanine Aminotransferase 9 Units/L (7-52); Alkaline Phosphatase 74 Units/L (34-104); Aspartate Amino Transferase 10 Units/L (13-39); BUN/Creatinine Ratio 33 (6-26); Bilirubin,Total 0.3 mg/dL (0.3-1.0); Blood Urea Nitrogen 21 mg/dL (8-23); Calcium 8.5 mg/dL (8.6-10.3); Carbon Dioxide 25 mEq/L (23-29); Chloride 102 mEq/L (98-107); Glucose 170 mg/dL (70-105); Osmolality,Calculated 285 (280-300); Sodium 134 mEq/L (136-145); Total Protein 5.9 g/dL (6.4-8.9); eGFR For Non-African Americans > 60 (> 60)
[2018-04-22] MEDS: *HR* Heparin 5,000 UNIT/ML VIAL SQ SCH ×2 (05:21→18:09)
[2018-04-22 05:22] LABS: Globulin 2.9 g/dL (2.4-3.5)
[2018-04-22] MEDS: Budesonide/Formoterol 160/4.5 1 PUFF INH IH SCH ×3 (07:45→21:21)
[2018-04-22] MEDS: Tiotropium 18 MCG inhalation IH SCH (07:46)
[2018-04-22] MEDS: Insulin DETEMIR 100 UNIT/ML X5UNITS SQ SCH (09:06)
[2018-04-22] MEDS: Pantoprazole 40 MG VIAL IVP SCH (09:06)
[2018-04-22] MEDS: Levofloxacin 750 MG/150 ML 750 MG/150 ML BAG IVPB SCH (09:07)
[2018-04-22] MEDS: Fluconazole 200 MG/100 ML 200 MG/100 ML BAG IVPB SCH (09:07)
--- NOTE | 2018-04-22 12:15 | General Surgery Progress Note ---
Date of Encounter: 04/22/18 Time of Encounter: 12:03 Subjective Patient reports: feels better Narrative: General Surgery - POD #7 Patient feeling well this AM , c/o "having a bad night". This appears to be related to BODY TRIMMER being unavailable d/t delayed refilling of the medication. The patient continues to be afebrile; hemodynamically stable with heart rate 84-86, respirations 16, blood pressure 129/79. SPO2 on 2 L/m nasal cannula 95-96% Lungs: Clear; no obvious abdominal pain on deep inspiration. Satisfactory inspiratory effort Abdomen: soft, nontender except to deep palpation. No rebound. No obvious intra-abdominal masses. Active bowel sounds. Patient continues to pass flatus with a small BM overnight Tolerating clear liquids though oral intake is quite minimal. No nausea or vomiting. Patient denies any increase in abdominal pain with oral intake Urine output: 4650 mL for calendar day 04/20/18; 3100 for calendar day 04/21/18; 1150 mL so far today The urine output reflects the volume of fluid infused via TPN, IVs including ATB, BODY TRIMMER Labs: Leukocytosis continuing to improve, currently 14.7 with neutrophils improved to 10.5. Monocytes 1.7 Hemoglobin 10.3, hematocrit 32.2; platelet count 490,000. Electrolytes, notable for sodium of 134, otherwise normal; BUN 21, creatinine 0.63. Accu-Cheks 141-180 LFTs normal, total serum protein fifth 0.9, albumin 3.0, prealbumin 18.5. Impression: Postoperative day #7, status post primary resection sigmoid colon with stapled colocolonic anastomosis Satisfactory postoperative status with daily signs and symptoms improvement Plan: Advance diet to full liquids Continue TPN but discontinue intralipids Continue current IV antibiotics Discontinue BODY TRIMMER - substitute oral analgesics Objective Vital Signs - Last 8 Hours Temp Pulse Resp BP Pulse Ox 04/22/18 11:17 97.7 F 86 16 129/79 96 04/22/18 07:45 16 95 04/22/18 07:07 98.2 F 84 16 119/74 95 Intake and Output 04/21/18 04/22/18 04/22/18 23:59 07:59 15:59 Intake Total 220 / 220 350 / 350 1709 / 1709 Output Total 1700 / 1700 1150 / 1150 Balance -1480 / -1480 350 / 350 559 / 559 Intake: IV Fluids 100 / 100 350 / 350 1649 / 1649 Clinimix E 5%-15% SOLUTION 2, 1333 / 1333 000 ML @ 83.3 mls/hr IVC .Q24H [facility] with M.v.i. Adult 10 ml Rx# :[id number] Lactated Ringers 1,000 ML @ 25 116 / 116 mls/hr IVC .Q24H [facility] Rx#: [id number] Intralipid 20% 250 ML @ 21 mls/ 250 / 250 hr IVPB DAILY@1700 [facility] Rx#: [id number] Diflucan Premix 200 MG/100 ML 100 / 100 200 mg In 100 ml @ 100 mls/hr IVPB DAILY [facility] Rx#:[id number] Flagyl Premix 500 MG/100 ML 500 100 / 100 100 / 100 100 / 100 mg In 100 ml @ 100 mls/hr IVPB Q8HR [facility] Rx#:[id number] Oral 120 / 120 60 / 60 Output: Catheter 1700 / 1700 1150 / 1150 Other: Meal Breakfast Percent of Meal Consumed 30% Blood Glucose* 181 208 124 - Labs 04/22/18 04:30 04/22/18 04:30 Diabetes panel 04/22/18 Range/Units 04:30 Sodium 134 L (136-145) mEq/L Potassium 4.0 (3.5-5.1) mEq/L Chloride 102 (98-107) mEq/L Carbon Dioxide 25 (23-29) mEq/L BUN 21 (8-23) mg/dL Creatinine 0.63 L (0.70-1.30) mg/dL Glucose 170 H (70-105) mg/dL Calcium 8.5 L (8.6-10.3) mg/dL AST 10 L (13-39) Units/L ALT 9 (7-52) Units/L Alkaline Phosphatase 74 (34-104) Units/L Albumin 3.0 L (3.5-5.7) g/dL Calcium panel 04/22/18 Range/Units 04:30 Calcium 8.5 L (8.6-10.3) mg/dL Albumin 3.0 L (3.5-5.7) g/dL Pituitary panel 04/22/18 Range/Units 04:30 Sodium 134 L (136-145) mEq/L Potassium 4.0 (3.5-5.1) mEq/L Chloride 102 (98-107) mEq/L Carbon Dioxide 25 (23-29) mEq/L BUN 21 (8-23) mg/dL Creatinine 0.63 L (0.70-1.30) mg/dL Glucose 170 H (70-105) mg/dL Calcium 8.5 L (8.6-10.3) mg/dL Adrenal panel 04/22/18 Range/Units 04:30 Sodium 134 L (136-145) mEq/L Potassium 4.0 (3.5-5.1) mEq/L Chloride 102 (98-107) mEq/L Carbon Dioxide 25 (23-29) mEq/L BUN 21 (8-23) mg/dL Creatinine 0.63 L (0.70-1.30) mg/dL Glucose 170 H (70-105) mg/dL Calcium 8.5 L (8.6-10.3) mg/dL Total Bilirubin 0.3 (0.3-1.0) mg/dL AST 10 L (13-39) Units/L ALT 9 (7-52) Units/L Alkaline Phosphatase 74 (34-104) Units/L Albumin 3.0 L (3.5-5.7) g/dL - VTE Documentation of Mechanical Device: Intermittent pneumatic compression device Consult Discharge Plan - Plan Referrals: Peter Valera MD [Non-Partnered Physician] - Ammon Maradiaga DO [Primary Care Provider] -
[2018-04-22] MEDS: *HR* OxyCODONE Immed Rel 5 MG TABLET PO PRN ×2 (13:24→21:01)
[2018-04-22] MEDS ORDERED: Clinimix E 5%-15% SOLUTION 2,000 ML with MVI, adult with vitamin K 10 ML IVC SCH (17:00)
[2018-04-22] MEDS ORDERED: *HR* HYDROmorphone (PF) 1 MG/ML SYRINGE IVP ONE (17:44)
[2018-04-22] MEDS ORDERED: *HR* LORazepam 2 MG/ML VIAL IVP ONE (17:44)
[2018-04-22] MEDS ORDERED: Furosemide 20 MG/2 ML VIAL IVP ONE (17:45)
[2018-04-23] MEDS: *HR* OxyCODONE Immed Rel 5 MG TABLET PO PRN ×5 (01:12→22:12)
[2018-04-23] MEDS: MetroNIDAZOLE 500 MG/100 ML 500 MG/100 ML BAG IVPB SCH ×3 (01:12→15:42)
[2018-04-23] MEDS: Insulin LISPRO 300 UNITS/3 ML VIAL SQ SCH ×6 (01:13→22:15)
[2018-04-23] MEDS: Acetaminophen 325 MG TABLET PO PRN ×3 (02:19→18:41)
[2018-04-23] MEDS: Albuterol 2.5 MG/3 ML NEBULIZER IH SCH ×5 (04:01→20:24)
[2018-04-23 04:57] LABS: Magnesium 2.2 mg/dL (1.6-2.6); Phosphorous 3.5 mg/dL (2.7-4.5)
[2018-04-23] MEDS: *HR* Heparin 5,000 UNIT/ML VIAL SQ SCH ×2 (05:30→18:41)
[2018-04-23] MEDS: Tiotropium 18 MCG inhalation IH SCH (07:48)
[2018-04-23] MEDS: Budesonide/Formoterol 160/4.5 1 PUFF INH IH SCH ×2 (07:48→20:24)
[2018-04-23] MEDS: Levofloxacin 750 MG/150 ML 750 MG/150 ML BAG IVPB SCH (07:54)
[2018-04-23] MEDS: Pantoprazole 40 MG VIAL IVP SCH (07:54)
[2018-04-23] MEDS: Fluconazole 100 MG TABLET PO SCH (07:54)
[2018-04-23] MEDS: Insulin DETEMIR 100 UNIT/ML X5UNITS SQ SCH (08:47)
[2018-04-23 10:39] LABS: Basophils # 0.1 K/mcL (0.0-0.2); Basophils % 0.9 %; Eosinophils # 0.2 K/mcL (0.0-0.6); Eosinophils % 1.9 %; Hematocrit 32.2 % (37.5-50.1); Hemoglobin 10.6 g/dL (12.9-16.9); Immature Granulocytes % 4.4 % (0-4); Lymphocytes # 1.5 K/mcL (0.6-4.6); Mean Corpuscular HGB Conc 32.9 g/dL (31.6-35.5); Mean Corpuscular Hemoglobin 30.4 pg (28.0-33.3); Mean Corpuscular Volume 92.3 fL (83.0-100.0); Mean Platelet Volume 10.1 fL (9.4-12.4); Monocytes # 1.6 K/mcL (0.0-1.3); Monocytes % 15.3 %; Neutrophils # 6.8 K/mcL (1.6-8.9); Platelet Count 485 K/mcL (140-400); Red Blood Count 3.49 M/mcL (4.19-5.50); Red Cell Distribution Width 14.6 % (11.5-14.5); Segmented Neutrophils % 63.5 %
[2018-04-23 10:57] LABS: BUN/Creatinine Ratio 34 (6-26); Blood Urea Nitrogen 22 mg/dL (8-23); Calcium 8.4 mg/dL (8.6-10.3); Carbon Dioxide 25 mEq/L (23-29); Chloride 104 mEq/L (98-107); Glucose 159 mg/dL (70-105); Osmolality,Calculated 289 (280-300); Potassium 3.9 mEq/L (3.5-5.1); Sodium 136 mEq/L (136-145); eGFR For Non-African Americans > 60 (> 60)
--- NOTE | 2018-04-23 11:22 | General Surgery Progress Note ---
Date of Encounter: 04/23/18 Time of Encounter: 11:13 Subjective Patient reports: tolerating liquids well Narrative: General Surgery - POD #8 Patient appears well this AM. The patient admits to "feeling stronger". Still describes pain LLQ. Afebrile, hemodynamically stable with pulse 8691, respirations 18, blood pressure 106/71. Lungs: Clear to auscultation, no obvious pain on deep inspiration. SPO2 on 2 L/m per nasal cannula 96-87%. Patient describes coughing last evening producing large mucoid plug. Abdomen: Soft with active bowel sounds; tender in the left lower quadrant with localized rebound. No detected intra-abdominal masses. Patient describes several liquid bowel movements. Urine output: 3000 mL for calendar day 04/22/18; 1250 mL so far today Laboratories: White count 10.8, 4.4% immature granulocytes, neutrophils normal at 6.8, monocytes 1.6. H&H 10.6/32.2. Leukocytosis resolved for the first time since surgery Electrolytes, BUN, creatinine table and within normal limits; phosphorus 3.5, magnesium 2.2 Accu-Cheks: 173 - 195. Impression/Plan: Postoperative day #8, status post primary sigmoid resection with stapled colocolonic anastomosis. Acceptable postoperative stat Patient tolerating full liquids. Advance diet. Taper TPN - TPN to be reduced to 50 mL/hour at 1700 today with anticipated discontinuation tomorrow. Continue to monitor the abd pain/tenderness Objective Vital Signs - Last 8 Hours Temp Pulse Resp BP Pulse Ox 04/23/18 10:21 98.2 F 91 18 106/71 96 04/23/18 07:48 16 97 04/23/18 06:53 98.2 F 86 16 120/76 97 04/23/18 04:04 18 96 04/23/18 04:03 98.9 F 82 15 121/76 100 Intake and Output 04/22/18 04/23/18 04/23/18 23:59 07:59 15:59 Intake Total 683 / 683 100 / 100 Output Total 1850 / 1850 800 / 800 450 / 450 Balance -1167 / -1167 -700 / -700 -450 / -450 Intake: IV Fluids 683 / 683 100 / 100 Clinimix E 5%-15% SOLUTION 2, 583 / 583 000 ML @ 83.3 mls/hr IVC .Q24H [facility] with M.v.i. Adult 10 ml Rx# :[id number] Flagyl Premix 500 MG/100 ML 500 100 / 100 100 / 100 mg In 100 ml @ 100 mls/hr IVPB Q8HR [facility] Rx#:[id number] Oral 0 / 0 0 / 0 Output: Urine 0 / 0 Catheter 1850 / 1850 800 / 800 450 / 450 Other: Stool Size Small Stool Consistency liquid Stool Color Brown # Bowel Movement Diapers 2 Blood Glucose* 197 204 185 - Labs 04/23/18 10:30 04/23/18 10:30 Diabetes panel 04/23/18 Range/Units 10:30 Sodium 136 (136-145) mEq/L Potassium 3.9 (3.5-5.1) mEq/L Chloride 104 (98-107) mEq/L Carbon Dioxide 25 (23-29) mEq/L BUN 22 (8-23) mg/dL Creatinine 0.64 L (0.70-1.30) mg/dL Glucose 159 H (70-105) mg/dL Calcium 8.4 L (8.6-10.3) mg/dL Calcium panel 04/23/18 04/23/18 Range/Units 04:05 10:30 Calcium 8.4 L (8.6-10.3) mg/dL Phosphorus 3.5 (2.7-4.5) mg/dL Pituitary panel 04/23/18 Range/Units 10:30 Sodium 136 (136-145) mEq/L Potassium 3.9 (3.5-5.1) mEq/L Chloride 104 (98-107) mEq/L Carbon Dioxide 25 (23-29) mEq/L BUN 22 (8-23) mg/dL Creatinine 0.64 L (0.70-1.30) mg/dL Glucose 159 H (70-105) mg/dL Calcium 8.4 L (8.6-10.3) mg/dL Adrenal panel 04/23/18 Range/Units 10:30 Sodium 136 (136-145) mEq/L Potassium 3.9 (3.5-5.1) mEq/L Chloride 104 (98-107) mEq/L Carbon Dioxide 25 (23-29) mEq/L BUN 22 (8-23) mg/dL Creatinine 0.64 L (0.70-1.30) mg/dL Glucose 159 H (70-105) mg/dL Calcium 8.4 L (8.6-10.3) mg/dL - VTE Documentation of Mechanical Device: Intermittent pneumatic compression device Consult Discharge Plan - Plan Referrals: Peter Valera MD [Non-Partnered Physician] - Ammon Maradiaga DO [Primary Care Provider] -
[2018-04-23] MEDS: Clinimix E 5%-15% SOLUTION 2,000 ML with MVI, adult with vitamin K 10 ML IVC SCH (16:36)
[2018-04-23] MEDS ORDERED: Clinimix E 5%-15% SOLUTION 2,000 ML with MVI, adult with vitamin K 10 ML IVC SCH (17:00)
[2018-04-24] MEDS: Insulin LISPRO 300 UNITS/3 ML VIAL SQ SCH ×6 (00:11→21:59)
[2018-04-24] MEDS: Acetaminophen 325 MG TABLET PO PRN ×3 (00:30→15:44)
[2018-04-24] MEDS: MetroNIDAZOLE 500 MG/100 ML 500 MG/100 ML BAG IVPB SCH ×3 (00:36→15:44)
[2018-04-24] MEDS: Albuterol 2.5 MG/3 ML NEBULIZER IH SCH ×7 (00:43→23:35)
[2018-04-24] MEDS: *HR* OxyCODONE Immed Rel 5 MG TABLET PO PRN ×5 (03:19→22:03)
[2018-04-24 04:44] LABS: Basophils # 0.1 K/mcL (0.0-0.2); Basophils % 1.3 %; Eosinophils # 0.3 K/mcL (0.0-0.6); Eosinophils % 2.3 %; Hemoglobin 10.5 g/dL (12.9-16.9); Immature Granulocytes % 3.2 % (0-4); Lymphocytes # 1.7 K/mcL (0.6-4.6); Lymphocytes % 15.4 %; Mean Corpuscular HGB Conc 31.8 g/dL (31.6-35.5); Mean Corpuscular Hemoglobin 29.6 pg (28.0-33.3); Mean Platelet Volume 10.3 fL (9.4-12.4); Monocytes # 1.6 K/mcL (0.0-1.3); Monocytes % 14.4 %; Platelet Count 496 K/mcL (140-400); Red Blood Count 3.55 M/mcL (4.19-5.50); Red Cell Distribution Width 14.6 % (11.5-14.5); Segmented Neutrophils % 63.4 %
[2018-04-24] MEDS: *HR* Heparin 5,000 UNIT/ML VIAL SQ SCH ×2 (05:08→16:57)
[2018-04-24] MEDS: Budesonide/Formoterol 160/4.5 1 PUFF INH IH SCH ×2 (07:34→20:17)
[2018-04-24] MEDS: Tiotropium 18 MCG inhalation IH SCH (07:35)
[2018-04-24] MEDS: Fluconazole 100 MG TABLET PO SCH (09:42)
[2018-04-24] MEDS: Insulin DETEMIR 100 UNIT/ML X5UNITS SQ SCH (09:43)
[2018-04-24] MEDS: Levofloxacin 750 MG/150 ML 750 MG/150 ML BAG IVPB SCH (09:43)
[2018-04-24] MEDS ORDERED: Isovue-370 500 ML INFUS..BTL IV ONE (11:48)
--- NOTE | 2018-04-24 11:58 | General Surgery Progress Note ---
Date of Encounter: 04/24/18 Time of Encounter: 11:53 Subjective Narrative: General Surgery - POD #9 Patient voicing no complaints this morning but describes "a difficult night" - he complained of significant cramping abdominal pain through the night Patient remains afebrile currently 98.2, hemodynamically stable with pulse 87, respirations 16, blood pressure 112/73 Lungs: Clear, still requiring 2 L/m nasal cannula to maintain O2 saturation 96% Abdomen: Soft, nontender to moderate palpation. No obvious rebound. Active bowel sounds. Liquid BMs persistent Urine output: 3000 mL for calendar day 04/22/18; 2350 mL so far today Labs: White count 11.1, hemoglobin 10.5, hematocrit 33.0. Vital count 496,000. Neutrophils within normal limits at 7.0, elevated monocytes persist - 1.6. Impression: Postoperative day 9; status post sigmoid colectomy with stapled colocolonic anastomosis for acute perforated diverticulitis with peritonitis. The patient appears to be doing well. No fever in the last 72 hours and leukocytosis has returned to normal. Stable anemia with hemoglobin 10.5 and hematocrit 33.0. No obvious intra-abdominal findings to palpation, however, patient remains at risk for an intra-abdominal abscess. Plan: Continue to taper TPN and discontinued today at 1700 CT abdomen and pelvis Objective Vital Signs - Last 8 Hours Temp Pulse Resp BP Pulse Ox 04/24/18 11:11 97.6 F 88 16 106/72 95 04/24/18 11:01 16 96 04/24/18 08:30 94 04/24/18 07:34 16 98 04/24/18 07:03 98.1 F 88 16 116/58 94 04/24/18 04:28 97.9 F 84 16 112/71 97 04/24/18 04:00 16 Intake and Output 04/23/18 04/24/18 04/24/18 23:59 07:59 15:59 Intake Total 100 / 100 100 / 100 180 / 180 Output Total 550 / 550 950 / 950 500 / 500 Balance -450 / -450 -850 / -850 -320 / -320 Intake: IV Fluids 100 / 100 100 / 100 Flagyl Premix 500 MG/100 ML 500 100 / 100 100 / 100 mg In 100 ml @ 100 mls/hr IVPB Q8HR [facility] Rx#:[id number] Oral 0 / 0 0 / 0 180 / 180 Output: Urine 500 / 500 Catheter 550 / 550 950 / 950 Urethral (Willingham) 225 / 225 Other: Meal Dinner Breakfast Percent of Meal Consumed 5% 5% Blood Glucose* 141 128 239 - Labs 04/24/18 04:00 04/23/18 10:30 - VTE Documentation of Mechanical Device: Intermittent pneumatic compression device Consult Discharge Plan - Plan Referrals: Peter Valera MD [Non-Partnered Physician] - Ammon Maradiaga DO [Primary Care Provider] -
[2018-04-24] MEDS: Clinimix E 5%-15% SOLUTION 2,000 ML with MVI, adult with vitamin K 10 ML IVC SCH (19:27)
[2018-04-25] MEDS: Acetaminophen 325 MG TABLET PO PRN ×3 (00:16→23:27)
[2018-04-25] MEDS: *HR* OxyCODONE Immed Rel 5 MG TABLET PO PRN ×3 (02:25→14:40)
[2018-04-25] MEDS: Albuterol 2.5 MG/3 ML NEBULIZER IH SCH ×6 (03:44→23:56)
[2018-04-25] MEDS: *HR* Heparin 5,000 UNIT/ML VIAL SQ SCH ×2 (05:25→17:17)
[2018-04-25] MEDS: Budesonide/Formoterol 160/4.5 1 PUFF INH IH SCH ×2 (07:32→20:14)
[2018-04-25] MEDS: Tiotropium 18 MCG inhalation IH SCH (07:33)
--- NOTE | 2018-04-25 15:33 | General Surgery Progress Note ---
Date of Encounter: 04/25/18 Time of Encounter: 14:30 Subjective Patient reports: no new complaints, feels better Narrative: General Surgery - POD #10 Patient doing well; voicing no complaints. He indicates he is feeling better than yesterday. Patient remains afebrile, currently 98.1, pulse 82-106; respiratory rate 15- 18 unlabored, blood pressure 116/75. SPO2 on 2 L/m nasal cannula is 96% Lungs: Clear, no obvious pain on deep inspiration. Satisfactory inspiratory effort Abdomen: Soft with minimal left lower quadrant tenderness. No obvious rebound. No discernible intra-abdominal masses. Active bowel sounds. Midline incision intact, and healing well. No erythema or edema. Patient moving bowels; the stool appears to be solidifying Urine output: 1825 mL mL for calendar day 04/24/18; 750 mL so far today. Willingham catheter removed; patient is been able to void [address] abdomen and pelvis, 04/24/2018, reviewed with [facility]. Findings include evidence of sigmoid colectomy with anastomotic eliane noted at the rectosigmoid junction. A possible anastomotic stricture stricture and possible giant diverticulum versus contained anastomotic leak is described. There is no dilatation of the small bowel or colon. Incidental notation of bilateral fat- containing inguinal hernias. Impression: Postoperative day #10, status post sigmoid colectomy with stapled colocolonic anastomosis. Acceptable postoperative status; patient remains afebrile, hemodynamically stable. Based on the CT findings - IV antibiotics have been discontinued. The CT findings are noted and will be followed closely. TPN has been tapered and discontinued; the patient is tolerating a regular diet PT/OT evaluations been completed. Recommendations for postoperative referral to rehabilitation/swing bed facility are noted. The patient nor his want to consider this option. Plan: Continue regular diet Monitor for increasing abdominal pain/tenderness, mass, fever, or developing peritoneal signs Check labs in a.m. Encourage activity out of bed now that IVs, TPN, Willingham have been discontinued and no longer impede the patient's ability to get out of bed Objective Vital Signs - Last 8 Hours Temp Pulse Resp BP Pulse Ox 04/25/18 11:33 98.1 F 106 14 111/78 94 04/25/18 08:18 98.2 F 92 15 116/76 96 04/25/18 07:30 95 Intake and Output 04/24/18 04/25/18 04/25/18 23:59 07:59 15:59 Intake Total 120 / 120 180 / 180 Output Total 550 / 550 100 / 100 Balance -430 / -430 80 / 80 Intake: Oral 120 / 120 180 / 180 Output: Urine 100 / 100 Catheter 550 / 550 Other: Meal Lunch Percent of Meal Consumed 30% Stool Size Smear Stool Consistency liquid Stool Color Pale # Bowel Movements 0 Weight 66.2 kg Patient Weight 04/25/18 23:59 Weight 66.2 kg - Labs 04/24/18 04:00 04/23/18 10:30 - VTE Documentation of Mechanical Device: Intermittent pneumatic compression device Consult Discharge Plan - Plan Referrals: Peter Valera MD [Non-Partnered Physician] - Ammon Maradiaga DO [Primary Care Provider] -
[2018-04-25] MEDS: *HR* OxyCODONE/APAP 5/325 TABLET PO PRN (19:54)
[2018-04-25] MEDS: Menthol 9.1 MG LOZENGE PO PRN (23:27)
[2018-04-26 04:03] LABS: Basophils # 0.1 K/mcL (0.0-0.2); Basophils % 0.7 %; Eosinophils # 0.2 K/mcL (0.0-0.6); Eosinophils % 1.1 %; Hematocrit 38.5 % (37.5-50.1); Immature Granulocytes % 1.1 % (0-4); Lymphocytes # 2.7 K/mcL (0.6-4.6); Lymphocytes % 15.4 %; Mean Corpuscular HGB Conc 32.2 g/dL (31.6-35.5); Mean Corpuscular Hemoglobin 29.6 pg (28.0-33.3); Mean Corpuscular Volume 91.9 fL (83.0-100.0); Mean Platelet Volume 10.1 fL (9.4-12.4); Monocytes # 2.7 K/mcL (0.0-1.3); Monocytes % 15.5 %; Neutrophils # 11.7 K/mcL (1.6-8.9); Platelet Count 612 K/mcL (140-400); Red Blood Count 4.19 M/mcL (4.19-5.50); Red Cell Distribution Width 14.9 % (11.5-14.5); Segmented Neutrophils % 66.2 %
[2018-04-26] MEDS: Albuterol 2.5 MG/3 ML NEBULIZER IH SCH ×6 (04:05→23:27)
[2018-04-26 04:08] LABS: Hemoglobin 12.4 g/dL (12.9-16.9)
[2018-04-26 04:21] LABS: BUN/Creatinine Ratio 38 (6-26); Blood Urea Nitrogen 15 mg/dL (8-23); Calcium 5.2 mg/dL (8.6-10.3); Carbon Dioxide 17 mEq/L (23-29); Chloride 117 mEq/L (98-107); Glucose 83 mg/dL (70-105); Osmolality,Calculated 292 (280-300); Potassium 2.7 mEq/L (3.5-5.1); Sodium 141 mEq/L (136-145); eGFR For Non-African Americans > 60 (> 60)
[2018-04-26] MEDS ORDERED: Calcium Gluconate 2,000 MG in 0.9 % Sodium Chloride 100 ML IVPB ONE (04:38)
[2018-04-26] MEDS: *HR* OxyCODONE/APAP 5/325 TABLET PO PRN ×3 (04:54→23:45)
[2018-04-26] MEDS: *HR* Heparin 5,000 UNIT/ML VIAL SQ SCH ×2 (04:59→17:53)
[2018-04-26] MEDS: Menthol 9.1 MG LOZENGE PO PRN ×2 (05:03→20:56)
[2018-04-26] MEDS: Tiotropium 18 MCG inhalation IH SCH (07:28)
[2018-04-26] MEDS: Budesonide/Formoterol 160/4.5 1 PUFF INH IH SCH ×2 (07:28→20:00)
[2018-04-26] MEDS: DALIRESP 500 MCG PO SCH (08:17)
--- NOTE | 2018-04-26 15:13 | General Surgery Progress Note ---
Date of Encounter: 04/26/18 Time of Encounter: 15:06 Subjective Patient reports: feels better, tolerating a regular diet Narrative: General Surgery - POD #11 Contacted this morning regarding critically low calcium. Placement therapy has been initiated. On my arrival at bedside, the patient was seated at bedside tolerating his noon meal. He denied any abdominal pain, but continues to experience diarrhea. His who is a nurse at the [employer], describes the diarrhea as foul-smelling with the potential for C. difficile colitis. The patient remains afebrile and hemodynamically stable. Temperature 98.2, pulse 63, but it has been as high as 99; respirations 18; BP112/65 Lungs: Clear; SPO2 on room air 95-96%. No obvious dyspnea or difficulty breathing Abdomen: Soft, nontender with active bowel sounds. Midline incision remains intact, clean and dry. Laboratories: Notable for a new leukocytosis of 17.7 with neutrophils 11.7 (previously 7.0) hemoglobin 12.4 with hematocrit 38.5, platelet count 612,000; also significantly improved since 04/24/18 Electrodes notable for potassium of 2.7 which will be replaced via both IV and oral routes. BUN 15, creatinine 0.39. Calcium was 5.2 Impression: Postoperative day #11, status post exploratory celiotomy, sigmoid colectomy with stapled colocolonic anastomosis for acute perforated diverticulitis with intra-abdominal and pelvic abscesses. Patient appears well and continues to improve though patient demonstrating a new leukocytosis with elevated neutrophils. New finding of thrombocytosis New finding hypokalemia and hypocalcemia Plan: Electrolyte replacement therapy Check stool for C. difficile colitis. Initiate vancomycin 125 mg by mouth 4 times a day Recheck labs in a.m. Objective Vital Signs - Last 8 Hours Temp Pulse Resp BP Pulse Ox 04/26/18 11:24 18 96 04/26/18 11:01 98.2 F 63 18 112/65 95 04/26/18 07:29 18 96 Intake and Output 04/25/18 04/26/18 04/26/18 23:59 07:59 15:59 Intake Total 0 / 0 1120 / 1120 100 / 100 Output Total 150 / 150 100 / 100 0 / 0 Balance -150 / -150 1020 / 1020 100 / 100 Intake: IV Fluids 120 / 120 100 / 100 Calcium Gluconate 2,000 MG In 0 120 / 120 .9 % Sodium Chloride 100 ML @ 220 mls/hr IVPB ONCE ONE Rx#: [id number] Potassium Chloride 20 mEq/100 100 / 100 mL 20 meq In 100 ml @ 100 mls/ hr IVPB Q1H [facility] Rx#:[id number] Oral 0 / 0 1000 / 1000 0 / 0 Output: Urine 150 / 150 100 / 100 0 / 0 Other: Stool Size Moderate Small Stool Consistency soft Stool Color Brown # Voids 1 Weight 61.8 kg Patient Weight 04/26/18 23:59 Weight 61.8 kg - Labs 04/26/18 03:50 04/26/18 03:50 Diabetes panel 04/26/18 Range/Units 03:50 Sodium 141 (136-145) mEq/L Potassium 2.7 L (3.5-5.1) mEq/L Chloride 117 H (98-107) mEq/L Carbon Dioxide 17 L (23-29) mEq/L BUN 15 (8-23) mg/dL Creatinine 0.39 L (0.70-1.30) mg/dL Glucose 83 (70-105) mg/dL Calcium 5.2 L* (8.6-10.3) mg/dL Calcium panel 04/26/18 Range/Units 03:50 Calcium 5.2 L* (8.6-10.3) mg/dL Pituitary panel 04/26/18 Range/Units 03:50 Sodium 141 (136-145) mEq/L Potassium 2.7 L (3.5-5.1) mEq/L Chloride 117 H (98-107) mEq/L Carbon Dioxide 17 L (23-29) mEq/L BUN 15 (8-23) mg/dL Creatinine 0.39 L (0.70-1.30) mg/dL Glucose 83 (70-105) mg/dL Calcium 5.2 L* (8.6-10.3) mg/dL Adrenal panel 04/26/18 Range/Units 03:50 Sodium 141 (136-145) mEq/L Potassium 2.7 L (3.5-5.1) mEq/L Chloride 117 H (98-107) mEq/L Carbon Dioxide 17 L (23-29) mEq/L BUN 15 (8-23) mg/dL Creatinine 0.39 L (0.70-1.30) mg/dL Glucose 83 (70-105) mg/dL Calcium 5.2 L* (8.6-10.3) mg/dL - VTE Documentation of Mechanical Device: Intermittent pneumatic compression device Consult Discharge Plan - Plan Referrals: Peter Valera MD [Non-Partnered Physician] - Ammon Maradiaga DO [Primary Care Provider] -
[2018-04-26] MEDS: Vancomycin Oral Soln 125 MG/2.5 ML UDC PO SCH ×3 (15:26→19:42)
[2018-04-26] MEDS: Acetaminophen 325 MG TABLET PO PRN (19:41)
[2018-04-27 03:33] LABS: Basophils # 0.1 K/mcL (0.0-0.2); Basophils % 0.9 %; Eosinophils # 0.2 K/mcL (0.0-0.6); Eosinophils % 3.5 %; Hematocrit 31.9 % (37.5-50.1); Immature Granulocytes % 1.2 % (0-4); Lymphocytes # 1.4 K/mcL (0.6-4.6); Mean Corpuscular HGB Conc 32.9 g/dL (31.6-35.5); Mean Corpuscular Hemoglobin 30.3 pg (28.0-33.3); Mean Corpuscular Volume 91.9 fL (83.0-100.0); Mean Platelet Volume 10.2 fL (9.4-12.4); Monocytes # 1.5 K/mcL (0.0-1.3); Neutrophils # 3.3 K/mcL (1.6-8.9); Platelet Count 389 K/mcL (140-400); Red Blood Count 3.47 M/mcL (4.19-5.50); Red Cell Distribution Width 14.8 % (11.5-14.5); Segmented Neutrophils % 50.4 %
[2018-04-27 03:34] LABS: Hemoglobin 10.5 g/dL (12.9-16.9)
[2018-04-27 03:34] LABS: VBG Ionized Calcium 1.18 mmol/L (1.15-1.35)
[2018-04-27] MEDS: Albuterol 2.5 MG/3 ML NEBULIZER IH SCH ×6 (03:43→23:10)
[2018-04-27 03:59] LABS: BUN/Creatinine Ratio 23 (6-26); Blood Urea Nitrogen 17 mg/dL (8-23); Calcium 8.5 mg/dL (8.6-10.3); Carbon Dioxide 24 mEq/L (23-29); Chloride 103 mEq/L (98-107); Glucose 127 mg/dL (70-105); Magnesium 2.1 mg/dL (1.6-2.6); Osmolality,Calculated 281 (280-300); Phosphorous 3.5 mg/dL (2.7-4.5); Sodium 134 mEq/L (136-145); eGFR For Non-African Americans > 60 (> 60)
[2018-04-27 04:03] LABS: Platelet Estimate Normal (Normal)
[2018-04-27] MEDS: Acetaminophen 325 MG TABLET PO PRN ×3 (04:21→22:08)
[2018-04-27] MEDS: *HR* Heparin 5,000 UNIT/ML VIAL SQ SCH ×2 (05:02→16:59)
[2018-04-27] MEDS: Budesonide/Formoterol 160/4.5 1 PUFF INH IH SCH ×2 (07:27→20:07)
[2018-04-27] MEDS: Tiotropium 18 MCG inhalation IH SCH (07:29)
[2018-04-27] MEDS: Menthol 9.1 MG LOZENGE PO PRN (09:01)
[2018-04-27] MEDS: *HR* OxyCODONE/APAP 5/325 TABLET PO PRN ×2 (09:01→16:03)
[2018-04-27] MEDS: Vancomycin Oral Soln 125 MG/2.5 ML UDC PO SCH ×2 (09:01→14:32)
[2018-04-27] MEDS: DALIRESP 500 MCG PO SCH (09:04)
--- NOTE | 2018-04-27 13:32 | General Surgery Progress Note ---
Date of Encounter: 04/27/18 Time of Encounter: 13:28 Subjective Narrative: General Surgery - POD #12 Patient feeling much improved; he was in acute distress through the night and this morning due to acute urinary retention. Willingham catheter inserted with approximately 600 mL urine output. As a result, his complaints of pelvic and back pain resolved. The patient remains afebrile, hemodynamically stable, pulse 86-90, respirations 16, blood pressure 115/72. Lungs: Clear, no abdominal pain and deep inspiration; SPO2 on room air 94% Abdomen: Soft, nontender. Midline incision remains intact/stable. The patient is tolerating a regular diet. Diarrhea appears to be resolving. Laboratories: White count 6.6, hemoglobin 10.5 with hematocrit 31.9, differential has remained normal. Neutrophils also back to normal at 3.3. Monocytes remained elevated at 1.5. These labs have all reverted back to normal similar to the labs dated 04/24/18. Hypokalemia corrected to 4.0, calcium also corrected to 8.5, normal phosphorus normal magnesium. Impression: Postoperative day #12, status post exploratory celiotomy, sigmoid colectomy with stapled colocolonic anastomosis for acute perforated di verticulitis. No evidence of C. difficile Diarrhea improving Hypokalemia and hypocalcemia corrected Acute urinary retention responding to reinsertion Willingham catheter. We will initiate Flomax which the patient indicates he was taking at home just prior to his hospitalization. Objective Vital Signs - Last 8 Hours Temp Pulse Resp BP Pulse Ox 04/27/18 10:27 98.1 F 90 16 115/72 94 04/27/18 07:29 14 94 04/27/18 07:10 98.4 F 86 14 112/76 94 Intake and Output 04/26/18 04/27/18 04/27/18 23:59 07:59 15:59 Intake Total 0 / 0 120 / 120 240 / 240 Output Total 0 / 0 600 / 600 Balance 0 / 0 120 / 120 -360 / -360 Intake: Oral 0 / 0 120 / 120 240 / 240 Output: Urine 0 / 0 Catheter 600 / 600 Urethral (Willingham) 600 / 600 Other: Meal Dinner Breakfast Percent of Meal Consumed 90% 25% Blood Glucose* 198 - Labs 04/27/18 03:12 04/27/18 03:12 Diabetes panel 04/27/18 Range/Units 03:12 Sodium 134 L (136-145) mEq/L Potassium 4.0 D (3.5-5.1) mEq/L Chloride 103 (98-107) mEq/L Carbon Dioxide 24 (23-29) mEq/L BUN 17 (8-23) mg/dL Creatinine 0.75 (0.70-1.30) mg/dL Glucose 127 H (70-105) mg/dL Calcium 8.5 L (8.6-10.3) mg/dL Calcium panel 04/27/18 Range/Units 03:12 Calcium 8.5 L (8.6-10.3) mg/dL Phosphorus 3.5 (2.7-4.5) mg/dL Pituitary panel 04/27/18 Range/Units 03:12 Sodium 134 L (136-145) mEq/L Potassium 4.0 D (3.5-5.1) mEq/L Chloride 103 (98-107) mEq/L Carbon Dioxide 24 (23-29) mEq/L BUN 17 (8-23) mg/dL Creatinine 0.75 (0.70-1.30) mg/dL Glucose 127 H (70-105) mg/dL Calcium 8.5 L (8.6-10.3) mg/dL Adrenal panel 04/27/18 Range/Units 03:12 Sodium 134 L (136-145) mEq/L Potassium 4.0 D (3.5-5.1) mEq/L Chloride 103 (98-107) mEq/L Carbon Dioxide 24 (23-29) mEq/L BUN 17 (8-23) mg/dL Creatinine 0.75 (0.70-1.30) mg/dL Glucose 127 H (70-105) mg/dL Calcium 8.5 L (8.6-10.3) mg/dL - VTE Documentation of Mechanical Device: Intermittent pneumatic compression device Consult Discharge Plan - Plan Referrals: Peter Valera MD [Non-Partnered Physician] - Ammon Maradiaga DO [Primary Care Provider] -
[2018-04-28] MEDS: *HR* OxyCODONE/APAP 5/325 TABLET PO PRN ×4 (03:01→22:49)
[2018-04-28] MEDS: Albuterol 2.5 MG/3 ML NEBULIZER IH SCH ×6 (04:25→23:04)
[2018-04-28] MEDS: *HR* Heparin 5,000 UNIT/ML VIAL SQ SCH ×2 (05:16→17:37)
[2018-04-28] MEDS: Budesonide/Formoterol 160/4.5 1 PUFF INH IH SCH ×2 (07:31→19:47)
[2018-04-28] MEDS: Tiotropium 18 MCG inhalation IH SCH (07:32)
[2018-04-28] MEDS: DALIRESP 500 MCG PO SCH (08:56)
[2018-04-28] MEDS: Acetaminophen 325 MG TABLET PO PRN ×2 (14:39→22:01)
--- NOTE | 2018-04-28 18:41 | General Surgery Progress Note ---
Date of Encounter: 04/28/18 Time of Encounter: 18:00 Subjective Patient reports: no new complaints Narrative: General Surgery - POD #13 Patient continues to feel well, he appears significantly improved. The patient describes minimal back pain which she attributes to potential nephro or ureterolithiasis. The patient remains afebrile, 98.1, pulse 91 but as high as 103; respirations 14, blood pressure 107/69. SPO2 on room air 93-98% Lungs: Clear Abdomen: Soft, no tenderness to rather deep palpation. No rebound. Obvious intra-abdominal masses. Midline incision clean and dry. Willingham catheter draining clear chantel urine; urinalysis approximately 1650 mL 4 calendar day 04/27/18; 2100 mL so far today No new labs Impression: Patient continues to improve; strength also improved with greater activity out of bed. Plan: Check labs in a.m. repeat CT abdomen and pelvis in a.m. without contrast - this will evaluate the system for the presence of any stones as well as follow-up the pelvic findings on CT 04/24/2018. Objective Vital Signs - Last 8 Hours Temp Pulse Resp BP Pulse Ox 04/28/18 15:40 98.1 F 91 14 107/69 98 04/28/18 15:28 16 93 04/28/18 11:30 98.1 F 103 15 113/75 94 04/28/18 11:07 18 91 Intake and Output 04/28/18 04/28/18 04/28/18 07:59 15:59 23:59 Intake Total 0 / 0 Output Total 850 / 850 450 / 450 Balance -850 / -850 -450 / -450 Intake: Oral 0 / 0 Output: Catheter 850 / 850 450 / 450 Urethral (Willingham) 550 / 550 300 / 300 Other: Weight 62.2 kg Patient Weight 04/28/18 23:59 Weight 62.2 kg - Labs 04/27/18 03:12 04/27/18 03:12 - VTE Documentation of Mechanical Device: Intermittent pneumatic compression device Consult Discharge Plan - Plan Referrals: Peter Valera MD [Non-Partnered Physician] - Ammon Maradiaga DO [Primary Care Provider] -
[2018-04-29] MEDS: Acetaminophen 325 MG TABLET PO PRN ×3 (04:03→21:21)
[2018-04-29] MEDS: Albuterol 2.5 MG/3 ML NEBULIZER IH SCH ×5 (04:20→20:04)
[2018-04-29] MEDS: *HR* OxyCODONE/APAP 5/325 TABLET PO PRN ×4 (05:13→23:55)
[2018-04-29] MEDS: *HR* Heparin 5,000 UNIT/ML VIAL SQ SCH ×2 (05:13→17:51)
[2018-04-29 05:48] LABS: Basophils # 0.1 K/mcL (0.0-0.2); Basophils % 1.5 %; Eosinophils # 0.2 K/mcL (0.0-0.6); Eosinophils % 4.4 %; Hematocrit 31.6 % (37.5-50.1); Hemoglobin 10.3 g/dL (12.9-16.9); Immature Granulocytes % 1.5 % (0-4); Lymphocytes # 1.7 K/mcL (0.6-4.6); Lymphocytes % 31.7 %; Mean Corpuscular HGB Conc 32.6 g/dL (31.6-35.5); Mean Corpuscular Hemoglobin 29.7 pg (28.0-33.3); Mean Corpuscular Volume 91.1 fL (83.0-100.0); Mean Platelet Volume 10.5 fL (9.4-12.4); Monocytes % 17.6 %; Neutrophils # 2.4 K/mcL (1.6-8.9); Platelet Count 382 K/mcL (140-400); Red Blood Count 3.47 M/mcL (4.19-5.50); Segmented Neutrophils % 43.3 %
[2018-04-29 06:03] LABS: BUN/Creatinine Ratio 15 (6-26); Blood Urea Nitrogen 11 mg/dL (8-23); Calcium 8.4 mg/dL (8.6-10.3); Carbon Dioxide 22 mEq/L (23-29); Chloride 105 mEq/L (98-107); Glucose 115 mg/dL (70-105); Osmolality,Calculated 284 (280-300); Potassium 3.6 mEq/L (3.5-5.1); Sodium 137 mEq/L (136-145); eGFR For Non-African Americans > 60 (> 60)
[2018-04-29] MEDS: Budesonide/Formoterol 160/4.5 1 PUFF INH IH SCH ×2 (07:30→20:03)
[2018-04-29] MEDS: Tiotropium 18 MCG inhalation IH SCH (07:31)
[2018-04-29] MEDS: DALIRESP 500 MCG PO SCH (08:39)
--- NOTE | 2018-04-29 15:07 | General Surgery Progress Note ---
Date of Encounter: 04/29/18 Time of Encounter: 15:00 Subjective Patient reports: no new complaints Narrative: General Surgery - POD #14 Patient feeling well, voicing no complaints CT abdomen/pelvis reviewed with [facility] - no evidence of nephroureterolithiasis; bowel gas pattern appears normal; evidence of sigmoid colectomy with persistent stool-filled loop of colon subjacent to the sigmoid anastomosis suggestive of an end to side anastomosis. Has been suggested the patient undergo a repeat study with rectal contrast, however, in light of the recent sigmoid colectomy with colocolonic anastomosis this will be deferred. The findings on previous CT have significantly diminished. No extraluminal fluid collections or inflammation. Patient is afebrile, hemodynamically stable, pulse 80, respirations 15, blood pressure 116/76 Lungs: Clear Abdomen: Soft, nontender. The midline incision is clean, dry, and healing well. Skin eliane were removed. Willingham: Removed; urine output 1300 mL for calendar day 04/28/18. Approximately 700 mL so far today. We will monitor for recurrent urinary retention Laboratories: White count 5.5; differential within normal limits. Previous elevated monocytes resolved. Hemoglobin stable at 10.3 with hematocrit 31.6. Electrolytes, BUN, creatinine within normal limits (bicarbonate 22) Impression: Postoperative day 14, acceptable postoperative status. Plan: Remove Willingham, monitor for recurrent urinary retention. Continue to encourage activity out of bed. Revisit recommendations to send patient to a swing bed rehabilitation center - the patient and his wish to return home after discharge. Objective Vital Signs - Last 8 Hours Temp Pulse Resp BP Pulse Ox 04/29/18 14:47 97.4 F L 80 15 116/76 98 04/29/18 10:47 97.6 F 78 15 106/71 95 04/29/18 07:29 16 98/65 94 Intake and Output 04/28/18 04/29/18 04/29/18 23:59 07:59 15:59 Intake Total 0 / 0 480 / 480 Output Total 1000 / 1000 700 / 700 Balance -1000 / -1000 -220 / -220 Intake: Oral 0 / 0 480 / 480 Output: Urine 1000 / 1000 Catheter 0 / 0 700 / 700 Other: Meal Breakfast Percent of Meal Consumed 5% Weight 59.5 kg Patient Weight 04/29/18 23:59 Weight 59.5 kg - Labs 04/29/18 05:20 11/17/18 05:20 Diabetes panel 04/29/18 Range/Units 05:20 Sodium 137 (136-145) mEq/L Potassium 3.6 (3.5-5.1) mEq/L Chloride 105 (98-107) mEq/L Carbon Dioxide 22 L (23-29) mEq/L BUN 11 (8-23) mg/dL Creatinine 0.74 (0.70-1.30) mg/dL Glucose 115 H (70-105) mg/dL Calcium 8.4 L (8.6-10.3) mg/dL Calcium panel 04/29/18 Range/Units 05:20 Calcium 8.4 L (8.6-10.3) mg/dL Pituitary panel 04/29/18 Range/Units 05:20 Sodium 137 (136-145) mEq/L Potassium 3.6 (3.5-5.1) mEq/L Chloride 105 (98-107) mEq/L Carbon Dioxide 22 L (23-29) mEq/L BUN 11 (8-23) mg/dL Creatinine 0.74 (0.70-1.30) mg/dL Glucose 115 H (70-105) mg/dL Calcium 8.4 L (8.6-10.3) mg/dL Adrenal panel 04/29/18 Range/Units 05:20 Sodium 137 (136-145) mEq/L Potassium 3.6 (3.5-5.1) mEq/L Chloride 105 (98-107) mEq/L Carbon Dioxide 22 L (23-29) mEq/L BUN 11 (8-23) mg/dL Creatinine 0.74 (0.70-1.30) mg/dL Glucose 115 H (70-105) mg/dL Calcium 8.4 L (8.6-10.3) mg/dL - VTE Documentation of Mechanical Device: Intermittent pneumatic compression device Consult Discharge Plan - Plan Referrals: Peter Valera MD [Non-Partnered Physician] - Ammon Maradiaga DO [Primary Care Provider] -
[2018-04-30] MEDS: Albuterol 2.5 MG/3 ML NEBULIZER IH SCH ×4 (00:01→11:35)
[2018-04-30] MEDS: *HR* Heparin 5,000 UNIT/ML VIAL SQ SCH (06:22)
[2018-04-30] MEDS: *HR* OxyCODONE/APAP 5/325 TABLET PO PRN (06:25)
[2018-04-30] MEDS: Tiotropium 18 MCG inhalation IH SCH (07:35)
[2018-04-30] MEDS: Budesonide/Formoterol 160/4.5 1 PUFF INH IH SCH (07:35)
[2018-04-30] MEDS: DALIRESP 500 MCG PO SCH (08:48)
[2018-04-30] MEDS: Acetaminophen 325 MG TABLET PO PRN (08:54)
[2018-04-30 10:41] VITALS: BP 104/68
--- NOTE | 2018-04-30 11:30 | General Surgery Progress Note ---
Date of Encounter: 04/30/18 Time of Encounter: 11:07 Subjective Patient reports: no new complaints, tolerating a regular diet, voiding w/o difficulty Narrative: General Surgery - POD #15 Discharge Summary Patient doing well; voicing no complaints. Tolerating a regular diet. Denies any abdominal pain. Patient has been able to void since removal of Willingham yesterday. Afebrile, 98.2, pulse 87, respirations 18, blood pressure 104/68. Lungs: Clear, no obvious pain on deep inspiration. SPO2 on room air 96% Cardiac: Regular rate, no appreciable murmur Abdomen: Soft, nontender. No obvious intra-abdominal masses. Normal active bowel sounds. Midline incision intact, clean and dry. Healing well. Bowels moving regularly, bMs described as soft/solid Impression/Plan: Postoperative day #15 status post exploratory celiotomy sigmoid colectomy with stapled colocolonic anastomosis. Acceptable postoperative status - discharge home. Outpatient surgical follow-up - 05/11/18. Discharge summary 67-year-old admitted to [facility] after presenting to the Emergency Department on 04/09/18 with approximately a 5 day history of progressive lower abdominal pain. The onset of symptoms began while the patient was hunting in [place]. The patient experienced progressively more severe pain prompting him to present to [facility] for further evaluation and treatment. The patient had a leukocytosis of 15,[address] abdomen/pelvis demonstrated wall thickening of the mid sigmoid colon with quentin-colonic stranding. A 6.9 x 3.6 cm gas and fluid collection posteriorly adjacent to the rectosigmoid was described consistent with an abscess due to acute perforated sigmoid diverticulitis. The patient was admitted, IV antibiotics were initiated along with pain control. [facility] performed a percutaneous drainage of the pericolic abscess. Initially the patient responded to these interventions but then began experiencing increased abdominal pain and a low-grade fever. CT abdomen/pelvis was repeated demonstrating new fluid collection/loculated fluid extending cephalad into the right lower abdomen. These new findings prompted a recommendation for surgery. Exploratory celiotomy was completed 04/15/18. At the time of surgery the described fluid collections per CT were inflammatory. No abscesses were encountered. It was deemed possible to complete a primary resection rather than the planned Doug procedure. Operative cultures demonstrated a joel sensitive Escherichia coli and Proteus mirabilis which responded to pre-and post-IV antibiotic therapy. TPN was initiated prior to surgery and was continued postoperatively as it was anticipated the enteral route would not be available for a prolonged period of time. The patient had a somewhat stormy postoperative recovery the first 6 days following surgery but these resolved without requiring further surgical intervention. Willingham catheter was removed, however, the patient experienced recurrent acute urinary retention requiring the Willingham catheter be reinserted. Flomax was initiated and 2 days later the Willingham was successfully removed. The patient continued to recover resuming diet with resolution/control of his abdominal pain. TPN was weaned and discontinued. Bowels were moving regularly. The patient was discharged home 04/30/18, the 15th postoperative day in good physical condition. Pathology demonstrated diverticular disease with diverticulosis, acute and chronic serositis and fibrinopurulent serosal exudate. At the time of surgery and incidental appendectomy was completed, pathology demonstrated acute and chronic serositis and focal serrated epithelial changes consistent with sessile serrated adenoma. Discharge diagnoses Diverticular disease with acute perforated sigmoid diverticulitis. Peritonitis and intra-abdominal abscess secondary to acute perforated sigmoid diverticulitis Moderate to severe protein calorie deficiency - TPN provided until enteral route available Acute urinary retention - history of prostatitis COPD secondary to prolonged tobacco use Hyperlipidemia Hypertension Discharge condition good Discharge instructions Resume home meds Regular diet Activity as tolerated; lifting limited to less than 20 pounds Tylenol, Motrin, Advil, Aleve, etc. as needed for pain Prescription for oxycodone/acetaminophen 5/325, #15, one every 6 hours as ne eded for pain not relieved by Tylenol or other [id number]-[id number] medications Outpatient surgical follow-up, 05/11/18. Patient to call office in a.m. to make this appointment. Objective Vital Signs - Last 8 Hours Temp Pulse Resp BP Pulse Ox 04/30/18 10:37 98.2 F 87 18 104/68 96 04/30/18 07:35 16 95 04/30/18 05:01 97.9 F 86 18 104/70 96 Intake and Output 04/29/18 04/30/18 04/30/18 23:59 07:59 15:59 Intake Total 240 / 240 0 / 0 180 / 180 Output Total 450 / 450 300 / 300 100 / 100 Balance -210 / -210 -300 / -300 80 / 80 Intake: Oral 240 / 240 0 / 0 180 / 180 Output: Urine 450 / 450 300 / 300 100 / 100 Other: Meal Dinner Breakfast Percent of Meal Consumed 30% 20% Weight 60 kg Patient Weight 04/30/18 23:59 Weight 60 kg - Labs 04/29/18 05:20 04/29/18 05:20 - VTE Documentation of Mechanical Device: Intermittent pneumatic compression device Consult Discharge Plan - Plan Referrals: Peter Valera MD [Non-Partnered Physician] - Ammon Maradiaga DO [Primary Care Provider] -
--- NOTE | 2018-04-30 11:35 | Discharge Summary ---
Outpatient Proc Discharge Plan - Plan Instructions: Prostatitis (DC), Staple Care (DC) Additional Instructions: Regular diet Patient may shower, wash incision with soap and water Activity as tolerated; lifting limited to less than 20 pounds Patient to resume home meds Tylenol, ibuprofen, Motrin, Advil, Aleve as needed for pain Prescription for Percocet 5/325, #15, one every 6 hours as needed for pain not relieved by [id number] medications Prescription for Flomax 0.4 mg by mouth daily Outpatient surgical follow-up 05/11/18 Patient encouraged to call [facility] for follow-up of his prostatitis Prescriptions: OxyCODONE/APAP 5/325 [Percocet 5/325 MG] 1 each PO Q6HR PRN 4 Days #15 tablet PRN Reason: Pain Tamsulosin [Flomax] 0.4 mg PO DAILY 30 Days #30 capsule Home Medications: Albuterol Sulfate [Proair Hfa] 2 puff IH Q4H PRN 12/26/15 [History] Budesonide/Formoterol 160/4.5 [Symbicort 160/4.5] 2 puff IH BIDR 12/26/15 [History] Roflumilast [Daliresp] 500 mcg PO DAILY 12/26/15 [History] hydroCHLOROthiazide [Hydrochlorothiazide] 25 mg PO DAILY 10/24/16 [History] Vit A/C/E AC/Znox/Cupric Oxide [Eye Vitamin-Minerals Tablet] 1 tab PO DAILY 07/25/17 [History] Acetylcysteine [C-Pyamkr-k-Cysteine] 1,200 mg PO DAILY 04/10/18 [History] Atorvastatin [Lipitor] 40 mg PO HS 04/10/18 [History] Fenofibrate Nanocrystallized [Triglide] 160 mg PO DAILY 04/10/18 [History] Tiotropium [Spiriva] 1 puff PO DAILY PRN 04/10/18 [History] Vit C/E/Zn/Coppr/Lutein/Zeaxan [Preservision Areds 2 Softgel] 1 cap PO DAILY 04/10/18 [History] Acetaminophen [Tylenol] 650 mg PO Q6H PRN tablet 04/30/18 [Rx] OxyCODONE/APAP 5/325 [Percocet 5/325 MG] 1 each PO Q6HR PRN 4 Days #15 tablet 04/30/18 [Rx] Tamsulosin [Flomax] 0.4 mg PO DAILY 30 Days #30 capsule 04/30/18 [Rx]
== END 2018-04-30 13:14 | disposition home or self-care (01) | DRG 853 ==
LOC: 3ANU 21:11 → EMEROOARM 21:11 → 3ANU 04-10 00:56 → SUATTDRO 04-10 01:54
PROVIDERS: ADMIT Internal Medicine; ATTEND Surgery
PROC: IRDRAIN (2018-04-10 12:00)

== ENCOUNTER 2021-11-03 08:56 | Inpatient (IN) ==
[2021-11-03] MEDS ORDERED: Ringers Solution, Lactated 1,000 ML IVC SCH (10:00)
[2021-11-03] MEDS ORDERED: Lidocaine HCL 4 ML Topical Solution (Laryng-O-Jet Kit Sterile Pak) TP ONE (10:55)
[2021-11-03] MEDS ORDERED: Lidocaine -MPF 2% 2 ML VIAL ONE (11:01)
[2021-11-03] MEDS ORDERED: *HR* Rocuronium Bromide 50 MG/5 ML VIAL ONE (11:01)
[2021-11-03] MEDS ORDERED: *HR* Succinylcholine 200 MG/10 ML VIAL IVP ONE ×2 (11:01→13:32)
[2021-11-03] MEDS ORDERED: Ondansetron 4 MG/2 ML VIAL ONE (11:02)
[2021-11-03] MEDS ORDERED: *HR* FentaNYL (PF) 100 MCG/2 ML VIAL ONE (11:04)
[2021-11-03] MEDS ORDERED: *HR* Propofol 200 MG/20 ML VIAL IVP ONE (12:03)
[2021-11-03] MEDS ORDERED: EPHEDrine 50 MG/ML VIAL ONE (12:12)
[2021-11-03] MEDS ORDERED: *HR* EPINEPHrine 1 MG/10 ML SYRINGE INTRATRACH PRN (12:47)
[2021-11-03] MEDS: Ringers Solution, Lactated 1,000 ML IVC SCH (12:58)
[2021-11-03] MEDS ORDERED: Naloxone 0.4 MG/ML INJ IVP PRN (15:39)
[2021-11-04] MEDS: Ipratropium/Albuterol Neb 3 ML IH SCH ×2 (03:54→09:27)
[2021-11-04 04:30] LABS: Hematocrit 40.8 % (37.5-50.1); Hemoglobin 13.6 g/dL (12.9-16.9); Mean Corpuscular HGB Conc 33.3 g/dL (31.6-35.5); Mean Corpuscular Hemoglobin 31.7 pg (28.0-33.3); Mean Corpuscular Volume 95.1 fL (83.0-100.0); Mean Platelet Volume 11.3 fL (9.4-12.4); Platelet Count 223 K/mcL (140-400); Red Blood Count 4.29 M/mcL (4.19-5.50); White Blood Count 11.6 K/mcL (4.3-11.1)
[2021-11-04 04:46] LABS: BUN/Creatinine Ratio 21 (6-26); Blood Urea Nitrogen 22 mg/dL (8-23); Calcium 9.2 mg/dL (8.6-10.3); Carbon Dioxide 27 mEq/L (23-29); Chloride 108 mEq/L (98-107); Glucose 112 mg/dL (70-105); Osmolality,Calculated 298 (280-300); Potassium 4.2 mEq/L (3.5-5.1); Sodium 142 mEq/L (136-145); eGFR For African Americans > 60 (> 60); eGFR For Non-African Americans > 60 (> 60)
[2021-11-04] MEDS ORDERED: *HR* Heparin 5,000 UNIT/ML VIAL SQ SCH (06:00)
[2021-11-04] MEDS: Ringers Solution, Lactated 1,000 ML IVC SCH ×2 (07:45→10:32)
[2021-11-04] MEDS ORDERED: Acetaminophen 325 MG TABLET PO PRN (08:52)
[2021-11-04] MEDS ORDERED: NON-FORMULARY MEDICATION 1 EACH EACH (Roflumilast [Daliresp] 500 MCG Tablet) PO SCH (09:00)
[2021-11-04] MEDS ORDERED: Fenofibrate 54 MG TABLET PO SCH (09:00)
[2021-11-04] MEDS ORDERED: amLODIPine 5 MG TABLET PO SCH (09:00)
[2021-11-04] MEDS ORDERED: NON-FORMULARY MEDICATION 1 EACH EACH (Albuterol Sulfate [Proair Respiclick] 90 MCG Aer.Pow IH SCH (09:00)
[2021-11-04] MEDS ORDERED: UBIDECARENONE 200 MG PO SCH (09:45)
[2021-11-04] MEDS ORDERED: Aspirin Enteric Coated 81 MG Tablet PO SCH (09:45)
[2021-11-04] MEDS ORDERED: Naloxone 0.4 MG/ML INJ IVP PRN (09:59)
[2021-11-04] MEDS ORDERED: Budesonide/Formoterol 160/4.5 1 PUFF INH IH SCH ×2 (10:00)
[2021-11-04] MEDS ORDERED: Tiotropium 10 INH DOSE IH SCH (10:00)
[2021-11-04] MEDS ORDERED: Finasteride 5 MG TABLET PO ONE (10:00)
[2021-11-04] MEDS ORDERED: Ipratropium/Albuterol Neb 3 ML IH SCH (10:00)
[2021-11-04] MEDS: Budesonide/Formoterol 160/4.5 1 PUFF INH IH SCH ×2 (10:52→19:46)
[2021-11-04] MEDS: Tiotropium 10 INH DOSE IH SCH (10:56)
[2021-11-04] MEDS: *HR* Heparin 5,000 UNIT/ML VIAL SQ SCH (17:11)
[2021-11-04] MEDS: Acetaminophen 325 MG TABLET PO PRN ×2 (17:13→23:03)
[2021-11-04] MEDS: Vit C/E/Zn/Coppr/Lutein/Zeaxan [Preservision Areds 2] PO SCH (20:38)
[2021-11-05 03:06] LABS: Hematocrit 38.4 % (37.5-50.1); Hemoglobin 12.8 g/dL (12.9-16.9); Mean Corpuscular HGB Conc 33.3 g/dL (31.6-35.5); Mean Corpuscular Hemoglobin 31.8 pg (28.0-33.3); Mean Corpuscular Volume 95.5 fL (83.0-100.0); Mean Platelet Volume 11.6 fL (9.4-12.4); Platelet Count 204 K/mcL (140-400); Red Blood Count 4.02 M/mcL (4.19-5.50); Red Cell Distribution Width 13.4 % (11.5-14.5); White Blood Count 7.6 K/mcL (4.3-11.1)
[2021-11-05 03:34] LABS: BUN/Creatinine Ratio 21 (6-26); Blood Urea Nitrogen 24 mg/dL (8-23); Calcium 8.5 mg/dL (8.6-10.3); Carbon Dioxide 23 mEq/L (23-29); Chloride 111 mEq/L (98-107); Glucose 136 mg/dL (70-105); Osmolality,Calculated 302 (280-300); Potassium 3.6 mEq/L (3.5-5.1); Sodium 143 mEq/L (136-145); eGFR For African Americans > 60 (> 60); eGFR For Non-African Americans > 60 (> 60)
[2021-11-05] MEDS: Acetaminophen 325 MG TABLET PO PRN ×4 (04:36→23:23)
[2021-11-05] MEDS: *HR* Heparin 5,000 UNIT/ML VIAL SQ SCH ×2 (04:36→17:01)
[2021-11-05] MEDS: Budesonide/Formoterol 160/4.5 1 PUFF INH IH SCH ×2 (07:25→19:59)
[2021-11-05] MEDS: Tiotropium 10 INH DOSE IH SCH (07:26)
[2021-11-05] MEDS: Cholecalciferol (D-3) 1,000 UNIT (25MCG) TABLET PO SCH (08:01)
[2021-11-05] MEDS: Multivit/Ca/Min/Fe/FA 1 TAB TABLET PO SCH (08:02)
[2021-11-05] MEDS: Aspirin Enteric Coated 81 MG Tablet PO SCH (08:02)
[2021-11-05] MEDS: amLODIPine 5 MG TABLET PO SCH (08:02)
[2021-11-05] MEDS: Finasteride 5 MG TABLET PO SCH (08:03)
[2021-11-05] MEDS: Fenofibrate 54 MG TABLET PO SCH (08:03)
[2021-11-05] MEDS: Vit C/E/Zn/Coppr/Lutein/Zeaxan [Preservision Areds 2] PO SCH ×2 (08:03→19:48)
[2021-11-05] MEDS: Ringers Solution, Lactated 1,000 ML IVC SCH (08:03)
[2021-11-05] MEDS ORDERED: NON-FORMULARY MEDICATION 1 EACH EACH (Fluticasone/Umeclidin/Vilanter [Trelegy Ellipta 200- IH SCH (09:00)
[2021-11-05] MEDS ORDERED: Finasteride 5 MG TABLET PO SCH (09:00)
[2021-11-05] MEDS ORDERED: Multivit/Ca/Min/Fe/FA 1 TAB TABLET PO SCH (09:00)
[2021-11-05] MEDS ORDERED: Cholecalciferol (D-3) 1,000 UNIT (25MCG) TABLET PO SCH (09:00)
[2021-11-06] MEDS: Acetaminophen 325 MG TABLET PO PRN ×2 (05:24→12:13)
[2021-11-06] MEDS: *HR* Heparin 5,000 UNIT/ML VIAL SQ SCH (05:24)
[2021-11-06] MEDS: Vit C/E/Zn/Coppr/Lutein/Zeaxan [Preservision Areds 2] PO SCH (07:44)
[2021-11-06] MEDS: Aspirin Enteric Coated 81 MG Tablet PO SCH (07:51)
[2021-11-06] MEDS: Finasteride 5 MG TABLET PO SCH (07:51)
[2021-11-06] MEDS: Cholecalciferol (D-3) 1,000 UNIT (25MCG) TABLET PO SCH (07:51)
[2021-11-06] MEDS: Multivit/Ca/Min/Fe/FA 1 TAB TABLET PO SCH (07:52)
[2021-11-06] MEDS: amLODIPine 5 MG TABLET PO SCH (07:52)
[2021-11-06] MEDS: Fenofibrate 54 MG TABLET PO SCH (07:52)
[2021-11-06] MEDS: Tiotropium 10 INH DOSE IH SCH (09:48)
[2021-11-06] MEDS: Budesonide/Formoterol 160/4.5 1 PUFF INH IH SCH (09:48)
[2021-11-06 11:06] VITALS: BP 148/90; TEMP 98.1; O2SAT 94
[2021-11-06 12:12] VITALS: PULSE 96
== END 2021-11-06 13:38 | disposition home or self-care (01) | DRG 164 ==
LOC: SAMDAY 08:56 → EDSTATUS 09:35 → ICNU 15:23 → 2NNU 11-04 15:59
PROVIDERS: ADMIT Internal Medicine; ATTEND Internal Medicine Pulmonary Disease
PROC: ENDOLBX (2021-11-03 09:35)